=== PATIENT | male | born 1940 | race Caucasian/White ===

== ENCOUNTER 2017-04-07 08:21 | Day surgery (SDC) | payer MEDICARE ==
[2017-04-06 13:34] VITALS: BMI 21.2
[~2017-04-07 08:21] MED LIST: Cyclopentolate 1% Opth Drop 2 ML BOT FS SCH; Fluorouracil 100 MG, Enoxaparin Sodium 25 MG, EPINEPHrine 0.3 MG in Ophthalmic Irrigati... FS SCH; Phenylephrine 2.5% Ophth Soln 5 ML BOT FS SCH
[2017-04-07] MEDS ORDERED: Cyclopentolate 1% Opth Drop 2 ML BOT ONE (08:56)
[2017-04-07] MEDS ORDERED: Phenylephrine 2.5% Ophth Soln 5 ML BOT ONE (08:57)
[2017-04-07] MEDS ORDERED: Midazolam HCl 2 mg/2 ml Vial ONE (10:28)
[2017-04-07] MEDS ORDERED: Diprivan 20 ML ONE (10:28)
[2017-04-07] MEDS ORDERED: Fentanyl 100 MCG/2 ML VIAL ONE (10:28)
[2017-04-07] MEDS ORDERED: Propofol 200 MG/20 ML VIAL ONE (10:39)
--- NOTE | 2017-04-07 11:57 | OP ---
DATE OF PROCEDURE: 04/07/2017 PREOPERATIVE DIAGNOSIS: Rhegmatogenous retinal detachment, right eye. POSTOPERATIVE DIAGNOSIS: Rhegmatogenous retinal detachment, right eye. PROCEDURE: Pars plana vitrectomy and retinal detachment repair, right eye. SURGEON: Hugo Garcia M.D. ANESTHESIA: Local with monitored anesthesia care. COMPLICATIONS: None. PROCEDURE IN DETAIL: The patient was identified in the preoperative holding area. Appropriate info rmed consent for the planned surgical procedure on the right eye had been obtained. The patient was transported to the operative suite where appropriate cardiopulmonary monitoring was established. L ocal anesthesia was obtained using retrobulbar and modified Van Lint lid block using 50/50 mixture o f 4% lidocaine and 0.75% bupivacaine. The patient was prepped and draped in the usual sterile melony r for ophthalmic surgery on the right eye. Lid speculum was placed in the right eye. The 25-gauge trocars were placed in conjunctiva and sclera supratemporally, inferotemporally, and supranasally. Infusion line was placed inferotemporally. Light pipe and vitreous cutter were inserted into the ey e. Core of vitrectomy was performed. Vitreus base was trimmed back 360 degrees using wide field vi lucero system. Tear was noted at 11 o'clock position. Posterior drain retinotomy was created and co mplete air fluid exchange was performed with 10 minutes being allowed for fluid to drain posteriorly . Laser was placed 360 degrees around the vitreous base. A 28% sulfur hexafluoride gas was infused into the eye. Trocars were removed. Supratemporal sclerotomy was sutured closed. Retrobulbar Deniz alog and subconjunctival Ancef were placed. Atropine and antibiotic ointment were placed, and the e ye was patched and shielded. The patient was taken to the postoperative recovery unit in good condi tion having suffered no immediate perioperative complications. The patient was advised to position, right side down, and follow up in the morning with Dr. Garcia.
== END 2017-04-07 12:32 | disposition home or self-care (01) ==
LOC: SDC 08:21
PROVIDERS: ATTEND Ophthalmology Retina Specialist
PROC: 3E0C3GC Introduction of Other Therapeutic Substance into Eye, Percutaneous Approach (ICD-10-PCS; principal; 2017-04-07)
DX: H33.021 Retinal detachment with multiple breaks, right eye (principal); Z87.891 Personal history of nicotine dependence
CPT/HCPCS: 67025; J0171; J1650; J2250; J2704; J3010; J9190

== ENCOUNTER 2017-07-05 09:55 | Day surgery (SDC) | payer MEDICARE ==
[2017-07-05] MEDS ORDERED: CEFAZOLIN/Water 2 GM/20 ML SYRINGE ONE (10:48)
[2017-07-05] MEDS ORDERED: Midazolam HCl 2 mg/2 ml Vial ONE ×2 (10:53→12:10)
[2017-07-05] MEDS ORDERED: Fentanyl 100 MCG/2 ML VIAL ONE ×2 (10:53→12:10)
[2017-07-05 10:58] LABS: #Eosinphils 0.2 thou/uL (0.0-0.7); #Lymphocytes 1.6 thou/uL (1.20-3.40); #Monocytes 0.9 thou/uL (0.11-0.59); #Neutrophils 3.6 thou/uL (1.40-6.50); %Basophils 0.5 % (0.0-1.0); %Eosinophils 2.7 % (0.0-10.0); %Lymphocytes 25.9 % (21.0-51.0); %Monocytes 13.9 % (0.0-10.0); Hemoglobin 11.6 g/dL (14.0-18.0); Mean Corpuscular HGB CONC 32.7 g/dL (32.0-36.0); Mean Corpuscular Hemoglobin 33.5 pg (27.0-31.0); Mean Platelet Volume 7.1 fL (7.4-10.4); Platelet Count 218 thou/uL (130-400); RBC Distribution Width 15.8 % (11.5-14.5); Red Blood Cell (RBC) Count 3.46 mill/uL (4.70-6.10); White Blood Cell (WBC) Count 6.3 thou/uL (4.8-10.8)
[2017-07-05] MEDS ORDERED: Sodium Chloride 0.9% 20 ML ONE (10:59)
[2017-07-05] MEDS ORDERED: Bupivacaine 0.25% HCL 30 ML VIAL ONE ×2 (10:59→16:49)
[2017-07-05] MEDS ORDERED: Protamine Sulfate 50 MG/5 ML VIAL ONE (10:59)
[2017-07-05] MEDS ORDERED: Heparin 10,000 UNITS/1 ML VIAL ONE (10:59)
[2017-07-05] MEDS ORDERED: Lidocaine 2% w/Epinephrine 1:200K 20 ML VIAL ONE (10:59)
[2017-07-05] MEDS ORDERED: Heparin 5,000 UNITS/ML VIAL ONE (10:59)
[2017-07-05 11:30] LABS: Anion Gap 14 mmol/L (10-20); BUN (Urea Nitrogen) 32 mg/dL (8.4-25.7); Calc. Creatinine Clearance 19 mL/min (70-130); Calcium 9.6 mg/dL (7.8-10.44); Carbon Dioxide 29 mmol/L (23-31); Chloride 98 mmol/L (98-107); Estimated GFR-MDRD 18; Glucose 97 mg/dL (83-110); Potassium 4.8 mmol/L (3.5-5.1); Sodium 136 mmol/L (136-145)
[2017-07-05] MEDS ORDERED: Propofol 500 MG/50 ML VIAL ONE (12:10)
[2017-07-05] MEDS ORDERED: Ketamine 50 MG/ML VIAL ONE (12:10)
[2017-07-05] MEDS ORDERED: Bupivacaine HCl 0.5%/Epinephrine 1:200,000/PF 30 ml Vial ONE (14:36)
[2017-07-05] MEDS ORDERED: Heparin 10,000 UNITS/ 10 ML VIAL ONE (15:00)
[2017-07-05] MEDS ORDERED: Lidocaine 1% w/Epinephrine 1:200K 30 ML VIAL ONE (16:49)
--- NOTE | 2017-07-05 19:26 | RAD ---
PORTABLE CHEST: 07/05/17 HISTORY: Postop catheter placement. COMPARISON: 01/07/17 study. Heart size is slightly enlarged. Postop sternotomy change. Internal defibrillator device present. the re is a right sided dural lumen catheter. Catheter tip overlies the superior vena cava. No signs of p neumothorax. No signs of failure. IMPRESSION: Right sided hemosplit catheter with catheter tip overlies the proximal superior vena cava. No signs o f pneumothorax. POS: [facility]
--- NOTE | 2017-07-06 13:32 | OP ---
PROCEDURES: Replacement of right IJ tunneled hemodialysis catheter and revision of right Radha AV f istula. PREOPERATIVE DIAGNOSES: End-stage renal failure with possible catheter infection with perianastomoti c stricture of right Radha AV fistula. POSTOPERATIVE DIAGNOSES: End-stage renal failure with possible catheter infection with perianastomot ic stricture of right Radha AV fistula. HISTORY: Mr. Venegas is a 76-year-old man with a poorly developing right Radha AV fistula. On fis tulogram, the vein appeared good, but the patient has a significant perianastomotic stricture of the vein immediately adjacent to the artery, which the interventional center machine operator did not feel, would be adequately addressed by angioplasty. Therefore, the decision was made to surgically revise this. I n addition, he has had some malaise and chills, and his center machine operator has requested replacement of his tunneled hemodialysis catheter with culture of the tip. PROCEDURE: After informed consent was obtained and appropriate preoperative antibiotics administered , the patient was taken to the operating room where he was placed in supine position and anesthesia w as administered. He was prepped and draped in a standard sterile fashion, and local anesthesia infus ed to the skin and subcutaneous tissues over the right IJ access site. The incision was reopened and dissection carried down to the catheter which was dissected free circumferentially, clamped and divi ded. A wire was placed to the distal portion of the catheter which was then removed and the tip sent for culture. Additional local anesthesia was infused to the skin and subcutaneous tissue over the r ight neck and chest. Lateral to the previous catheter site, an infraclavicular incision was made and a fresh catheter tunneled up to the access site. A dilator and sheath were placed over the wire, an d the dilator and wire removed leaving the sheath in place. The catheter was tunneled through this a nd the sheath split and removed leaving the catheter in place. Both ports easily aspirated and easil y flushed without resistance, and heparin was instilled to the quantity specified on the hub. The ca theter was confirmed by fluoroscopy to be in good position with the tip in the superior vena cava. T he right IJ access site was closed in two layers with Monocryl suture and Dermabond placed. The exit site was snugged up around the catheter with 4-0 Monocryl suture as well and Dermabond placed there. The hub was secured to the skin with nylon sutures and once the Dermabond was dry, a Biopatch and T egaderm dressing were placed. Attention was then turned to the revision of the right Radha AV fistula. The right arm was prepped and draped in standard sterile fashion, and an incision made over the radial artery proximal to the a nastomosis. Dissection was carried out to the vein, which was dissected free proximally to obtain a good length of healthy vein to reach to the artery proximal to the anastomosis. The vein was then li gated and divided at the level of the anastomosis and the vein spatulated and interrogated with cardi ac dilators. No stricture of the remaining vein was identified and easily accepted a 4 mm dilator. This was flushed with heparinized saline and clamped. The radial artery was then dissected free prox imal to the anastomosis and found to be of good quality and caliber. Heparin was administered circum ferentially and allowed to circulate following which the artery was clamped proximally and distally. An anterior arteriotomy was created and extended with [place] scissors and an end-to-side anastomosis created with a 6-0 Prolene suture with excellent technical result. The patient had a strong thrill a nd bruit following creation of the anastomosis and release of inflow. Hemostasis at this site was ve rified and flow established the distal radial artery. The wound was irrigated and a few oozing spots controlled with electrocautery. The subcutaneous tissues were reapproximated with 3-0 Monocryl sutu re and the skin closed with 4-0 subcuticular Monocryl suture. Dermabond dressings were placed and on ce this was dry, an Trevor wrap was placed. Attention was then turned to removal of the old catheter. Local anesthesia was infused to the skin a nd subcutaneous tissues surrounding the cuff. This was dissected free circumferentially and the cath eter removed, and a gauze and Tegaderm dressing placed at the exit site. The patient was then taken to the recovery room in good condition. Estimated blood loss was minimal. There were no complicatio ns. Specimen is tip of right IJ catheter for culture.
== END 2017-07-05 18:30 | disposition home or self-care (01) ==
LOC: SDC 09:55
PROVIDERS: ATTEND Surgery
PROC: 0J2TXYZ Change Other Device in Trunk Subcutaneous Tissue and Fascia, External Approach (ICD-10-PCS; principal; 2017-07-05)
DX: T82.858A Stenosis of other vascular prosthetic devices, implants and grafts, initial encounter (principal); I13.2 Hypertensive heart and chronic kidney disease with heart failure and with stage 5 chronic kidney disease, or end stage renal disease; N18.6 End stage renal disease; I50.20 Unspecified systolic (congestive) heart failure; M10.9 Gout, unspecified; E78.5 Hyperlipidemia, unspecified; I25.10 Atherosclerotic heart disease of native coronary artery without angina pectoris; I48.91 Unspecified atrial fibrillation; Z79.82 Long term (current) use of aspirin; Z79.899 Other long term (current) drug therapy; Z98.890 Other specified postprocedural states; Z99.2 Dependence on renal dialysis
CPT/HCPCS: 36582; 36832; 71045; 80048; 85025; 87071; C1752; C1769; A4216; J0670; J1644; J2250; J2704; J2720; J3010; S0020

== ENCOUNTER → 2019-07-10 | Day surgery (SDC) | payer MEDICARE ==
[2019-07-09 10:00] VITALS: BMI 22.8
[~2019-07-10] MED LIST changes: -Cyclopentolate 1% Opth Drop 2 ML BOT FS SCH; -Fluorouracil 100 MG, Enoxaparin Sodium 25 MG, EPINEPHrine 0.3 MG in Ophthalmic Irrigati... FS SCH; +Heparin (Artline) 1,000 ML ONE; +Iopamidol 370 76% 100 ML VIAL ONE; +Iopamidol 370 76% 50 ML VIAL FS ONE; +Lidocaine 1% (PF) 30 ML VIAL ONE; +Midazolam HCl 2 mg/2 ml Vial ONE; -Phenylephrine 2.5% Ophth Soln 5 ML BOT FS SCH
[2019-07-10 06:37] LABS: Hemoglobin 12.5 g/dL (14.0-18.0); Red Blood Cell (RBC) Count 3.68 mill/uL (4.70-6.10)
[2019-07-10 06:38] LABS: #Basophils 0.1 thou/uL (0.0-0.2); #Eosinphils 0.1 thou/uL (0.0-0.7); #Lymphocytes 1.7 thou/uL (1.20-3.40); #Monocytes 0.8 thou/uL (0.11-0.59); #Neutrophils 4.2 thou/uL (1.40-6.50); %Eosinophils 2.1 % (0.0-10.0); %Lymphocytes 24.1 % (21.0-51.0); %Monocytes 11.9 % (0.0-10.0); %Neutrophils 60.8 % (42.0-75.0); Mean Corpuscular HGB CONC 33.8 g/dL (32.0-36.0); Mean Corpuscular Hemoglobin 33.9 pg (27.0-31.0); Mean Platelet Volume 7.6 fL (7.4-10.4); Platelet Count 193 thou/uL (130-400); RBC Distribution Width 12.5 % (11.5-14.5)
[2019-07-10 06:44] LABS: INR-International Normal Ratio 1.1; PTT 29.3 SEC (22.9-36.1); Prothrombin Time 13.9 SEC (12.0-14.7)
[2019-07-10 06:57] LABS: ALT (SGPT) 18 U/L (8-55); AST (SGOT) 13 U/L (5-34); Albumin 4.3 g/dL (3.4-4.8); Alkaline Phosphatase 94 U/L (40-110); Anion Gap 16 mmol/L (10-20); BUN (Urea Nitrogen) 40 mg/dL (8.4-25.7); Bilirubin, Total 0.8 mg/dL (0.2-1.2); Calc. Creatinine Clearance 12 mL/min (70-130); Calcium 9.3 mg/dL (7.8-10.44); Carbon Dioxide 30 mmol/L (23-31); Chloride 96 mmol/L (98-107); Estimated GFR-MDRD 9; Glucose 104 mg/dL (83-110); Potassium 4.4 mmol/L (3.5-5.1); Protein, Total 7.3 g/dL (5.8-8.1); Sodium 138 mmol/L (136-145)
--- NOTE | 2019-07-10 07:53 | RAD ---
Chest AP view INDICATION: Preoperative examination COMPARISON: Prior examination dated January 07, 2017 and July 05, 2017 FINDINGS: Lungs:Chronic interstitial opacities likely related to underlying fibrosis is stable. No acute airspa ce consolidation is present. Cardiac silhouette:Mild cardiomegaly with AICD is stable. Pulmonary vasculature:Normal Pleural spaces:No pleural effusion or pneumothorax is demonstrated. Upper abdomen:No abnormality seen. Osseous structures: There is stable postsurgical change of a left rotator cuff repair. No acute fract ure or subluxation demonstrated. Additional findings:None. IMPRESSION: No acute cardiopulmonary abnormality.
--- NOTE | 2019-07-11 11:22 | DIS ---
DATE OF ADMISSION: 07/10/2019 DATE OF DISCHARGE: 07/10/2019 He was seen in the outpatient facility to undergo a cardiac catheterization. ADMISSION DIAGNOSES: 1. Include coronary artery disease status post bypass surgery, cardiomyopathy status post AICD implant, multiple shocks after dialysis from the AICD, also hypertension. 2. Chronic systolic heart failure. 3. Hyperlipidemia. DISCHARGE DIAGNOSES: 1. Include coronary artery disease status post bypass surgery, cardiomyopathy status post AICD implant, multiple shocks after dialysis from the AICD, also hypertension. 2. Chronic systolic heart failure. 3. Hyperlipidemia. PROCEDURES PERFORMED: Include cardiac catheterization, left ventriculogram, coronary arteriography, saphenous vein graft evaluation, also left internal mammary artery graft evaluation. DISCHARGE MEDICATIONS: Include: 1. Amiodarone 200 mg once a day. 2. Aspirin 81 mg a day. 3. Atorvastatin 40 mg a day. 4. Furosemide 80 mg on Tuesday, Tuesday, and Fridays. 5. Coreg 12.5 mg b.i.d. 6. Multivitamins daily. 7. Tamsulosin 0.4 mg q.p.m. His followup will be with senior ui web developer about one month. He will see me back in the office in the next 2 to 3 months. He will continue his routine follow up with Dr. Jo. He will continue his routine scheduled dialysis. HOSPITAL COURSE: This is a very pleasant 78-year-old gentleman, who has a history of coronary artery disease, bypass surgery about 15 years ago. He was advised to undergo cardiac catheterization after he received multiple shocks from the AICD to ensure that he was not having ischemia causing AICD shocks. It mainly occurred after his dialysis. He had had no significant shortness of breath or chest pain but due to the ventricular tachycardia and AICD shocks, he was advised to undergo cardiac catheterization to evaluate the graft as well as his havasupai coronary arteries. He was taken to cardiac bobcat driver/labor, where he was prepped and draped, where he underwent the procedure without difficulties or complications. He has a CUETO to the left anterior descending artery, which is patent. There is no evidence of distal left anterior descending artery stenosis. The graft is on the very distal left anterior descending artery. There is some retrograde filling of the left anterior descending artery, which feeds some septal branches. There is a 50% to 60% stenosis in this area proximal to the left internal mammary artery anastomosis. There is a saphenous vein graft to the first obtuse marginal branch, which also was patent. There was no evidence of stenosis in the graft. There was no evidence of stenosis in the obtuse marginal branch distal to the anastomosis. This vessel also feeds retrograde up into the left circumflex, which then fills distally by retrograde filling from the obtuse marginal branch of left circumflex. There is also saphenous vein graft to the distal posterior descending or the right coronary artery. There is no stenosis in this graft and there is no stenosis in the posterior descending artery beyond the anastomotic site. This vessel also fills retrograde into the distal right coronary artery and into the posterolateral branch of the right coronary, and there is no evidence of stenosis in the posterolateral branch. There is what appears to be some mild stenosis just at the bifurcation. However, at the stenosis, the bifurcation of the posterior descending artery and posterolateral branch, there is still good filling of the posterolateral branch from this retrograde filling of the posterior descending artery by the saphenous vein graft. There was also radial artery graft, which is anastomosed off the gutierrez of the saphenous vein graft to the right coronary. This radial graft is anastomosed to a diagonal branch and the radial graft has no evidence of stenosis, and there is no evidence of stenosis in the diagonal branch. Distally to the anastomosis is somewhat small vessel, but no evidence of stenosis is noted. There is also some retrograde filling of this vessel up to the bifurcation of another small diagonal branch, which arises as a bifurcation, but there is no filling up into the left anterior descending artery. The left ventriculogram was performed and showed global hypokinesis. Ejection fraction is estimated approximately at 30% to 40%. He did have some PVCs during the injection, but otherwise appeared to be relatively stable, but there is a global hypokinesis noted. Ejection fraction at best is 30% to 40 %. He tolerated the procedure well without difficulties or complications. If he remains stable, he will be discharged later today and I will see him back in the office in the next couple of months. He will follow up with Dr. Jo and for his dialysis concern, his electrolytes may need to be readjusted during the dialysis or I will check at the end of the procedure to ensure that his potassium is not too low. Otherwise, he will continue his followup with the senior ui web developer and may need some adjustments to the AICD. If he remains stable in the next couple of hours, he will be discharged to home. Job ID: [id number]
== END ==
LOC: CCL 06:01
PROVIDERS: ATTEND Internal Medicine Cardiovascular Disease
PROC: 4A023N7 Measurement of Cardiac Sampling and Pressure, Left Heart, Percutaneous Approach (ICD-10-PCS; principal; 2019-07-10)
PROC: B201YZZ Plain Radiography of Multiple Coronary Arteries using Other Contrast (ICD-10-PCS; 2019-07-10)
PROC: B205YZZ Plain Radiography of Left Heart using Other Contrast (ICD-10-PCS; 2019-07-10)
PROC: B203YZZ Plain Radiography of Multiple Coronary Artery Bypass Grafts using Other Contrast (ICD-10-PCS; 2019-07-10)
DX: I25.10 Atherosclerotic heart disease of native coronary artery without angina pectoris (principal); I13.2 Hypertensive heart and chronic kidney disease with heart failure and with stage 5 chronic kidney disease, or end stage renal disease; I50.22 Chronic systolic (congestive) heart failure; I25.5 Ischemic cardiomyopathy; I48.3 Typical atrial flutter; Z95.1 Presence of aortocoronary bypass graft; E78.2 Mixed hyperlipidemia; N18.6 End stage renal disease; Z99.2 Dependence on renal dialysis; Z79.82 Long term (current) use of aspirin; Z87.891 Personal history of nicotine dependence; Z79.899 Other long term (current) drug therapy
CPT/HCPCS: 36415; 71045; 80053; 85025; 85610; 85730; 93005; 93010; 93459; 99152; 99153; C1769; J1644; J2001; J2250; Q9967

== ENCOUNTER 2019-07-15 09:14 | Inpatient (IN) | payer MEDICARE ==
--- NOTE | 2019-07-15 09:46 | RAD ---
EXAM: Portable chest PROVIDED CLINICAL HISTORY: Defibrillator firing COMPARISON: 07/10/2019 FINDINGS: Cardiac and mediastinal silhouette unchanged in appearance. Left subclavian cardiac pacing device and median sternotomy changes are again seen. Vascular calcification is noted. No focal consolidation, pleural fluid or pneumothorax evident. IMPRESSION: No evidence for an acute cardiopulmonary process.
[2019-07-15 10:02] LABS: Mean Corpuscular HGB CONC 34.4 g/dL (32.0-36.0); Mean Corpuscular Hemoglobin 34.7 pg (27.0-31.0); Platelet Count 184 thou/uL (130-400); RBC Distribution Width 12.3 % (11.5-14.5); Red Blood Cell (RBC) Count 3.46 mill/uL (4.70-6.10); White Blood Cell (WBC) Count 8.4 thou/uL (4.8-10.8)
[2019-07-15 10:24] LABS: Eosinophils 2 % (0-10); Lymphocytes 15 % (21-51); MDiff Complete? YES; Monocytes 6 % (0-10); Neutrophil 67 % (42-75); Platelet Morphology Comment Appears Adequate; Reactive Lymphocytes 8 % (0-10)
[2019-07-15 10:27] LABS: ALT (SGPT) 18 U/L (8-55); AST (SGOT) 14 U/L (5-34); Albumin 4.3 g/dL (3.4-4.8); Alkaline Phosphatase 92 U/L (40-110); Anion Gap 17 mmol/L (10-20); BUN (Urea Nitrogen) 45 mg/dL (8.4-25.7); CK (CPK) 56 U/L (30-200); Calc. Creatinine Clearance 0 mL/min (70-130); Calcium 9.1 mg/dL (7.8-10.44); Carbon Dioxide 27 mmol/L (23-31); Chloride 98 mmol/L (98-107); Estimated GFR-MDRD 10; Globulin 2.6 g/dL (2.4-3.5); Glucose 107 mg/dL (83-110); Potassium 4.3 mmol/L (3.5-5.1); Protein, Total 6.9 g/dL (5.8-8.1); Sodium 138 mmol/L (136-145)
[2019-07-15 10:44] LABS: CKMB 1.5 ng/mL (0-6.6)
[2019-07-15] MEDS ORDERED: Amiodarone 150 MG/3 ML VIAL ONE (14:32)
[2019-07-15] MEDS ORDERED: Amiodarone 450 MG, Admixture Fee 1 EACH in Dextrose 5% in Water 250 ML IVPB SCH (14:45)
[2019-07-15] MEDS ORDERED: Acetaminophen 325 MG TAB PO PRN (15:21)
[2019-07-15 17:14] VITALS: BMI 22.2
[2019-07-15] MEDS: Carvedilol 6.25 MG TAB PO SCH (17:55)
[2019-07-15 18:30] LABS: Troponin I 0.057 ng/mL (< 0.028)
[2019-07-15 21:51] LABS: Anion Gap 16 mmol/L (10-20); BUN (Urea Nitrogen) 52 mg/dL (8.4-25.7); Calc. Creatinine Clearance 11 mL/min (70-130); Carbon Dioxide 27 mmol/L (23-31); Chloride 99 mmol/L (98-107); Estimated GFR-MDRD 9; Glucose 125 mg/dL (83-110); Magnesium 2.6 mg/dL (1.6-2.6); Potassium 3.9 mmol/L (3.5-5.1); Sodium 138 mmol/L (136-145)
[2019-07-15] MEDS: Amiodarone 450 MG in Dextrose 5% in Water 250 ML IVPB SCH (22:28)
[2019-07-15] MEDS ORDERED: Senokot 8.6 MG TAB PO PRN (22:56)
--- NOTE | 2019-07-15 23:17 | HP ---
CHIEF COMPLAINT: Defibrillator discharge. HISTORY OF PRESENT ILLNESS: This patient is a 78-year-old male with a history of an ischemic cardiomyopathy with an ejection fraction around 35% on his most recent echocardiogram. He presented to the emergency department reporting that his defibrillator had discharged. The patient was just here on July 10 for heart catheterization as an outpatient to investigate potential sources of his defibrillator discharging at that time, it was primarily related to post-dialysis episodes. The patient had another episode this morning. He simply got up, got ready for scientology, was sitting in the chair, said he felt slight lightheadedness and then it discharged. He reports that he has otherwise felt well and has only been having some slight symptoms of feeling a bit lightheaded with standing. He denies any other palpitations or chest pains. REVIEW OF SYSTEMS: He has been afebrile, eating and drinking normally, and sleeping well. He continues to make good urine output and has normal bowel habits. All other systems were reviewed. All pertinent positives and negatives noted in the HPI. PAST MEDICAL HISTORY: End-stage renal disease, on hemodialysis, followed by Dr. Jo; coronary artery disease; hypertension; hyperlipidemia; ventricular tachycardia; ischemic cardiomyopathy with most recent echo showing an EF of 35% to 40% in February 2019, and he has grade 2 diastolic dysfunction. PAST SURGICAL HISTORY: History of pacemaker placement, AICD placement, coronary artery bypass x4. 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 FAMILY HISTORY: Notable for a father who had lung cancer. SOCIAL HISTORY: Quit smoking in 2004, when he had his bypass surgery. Continues to have 1-2 very small glasses of wine per day. He is , he is full code, and his would be his surrogate decision maker. MEDICATIONS: 1. Aspirin 81 mg q. day. 2. Lipitor 40 mg q. day. 3. Coreg 12.5 mg b.i.d. 4. Lasix 120 mg q. day. 5. Amiodarone 200 mg Lasix 120. 6. Tamsulosin 0.4 mg p.o. q. day. ALLERGIES: VANCOMYCIN. PHYSICAL EXAMINATION: VITAL SIGNS: Most recent vitals; BP 167/83, pulse 68, respirations 14, O2 saturation 99% on room air. GENERAL APPEARANCE: Age-appropriate male, pleasant, cooperative, in no distress. HEENT: PERRL. No OP lesions. NECK: Supple and symmetric. HEART: Regular rate and rhythm without murmurs. LUNGS: Clear other than some minimal rales at the right lung base. No other wheezes, rales, or rhonchi noted. ABDOMEN: Soft, nontender, and nondistended. Positive bowel sounds. No masses and no organomegaly. EXTREMITIES: No cyanosis, clubbing, or edema. PSYCH: Normal affect and behavior. NEURO: Cognitively intact. Cranial nerves intact. No focal deficits. LABORATORY DATA: White count 8.4, hemoglobin 12.0, platelets 184. Chemistries notable for BUN of 45 and creatinine of 5.81, otherwise normal. Troponin 0.06, consistent with previous readings. Chest x-ray is unremarkable. EKG shows paced rhythm at 72 beats per minute. IMPRESSION AND PLAN: 1. Recurrent ventricular tachycardia with AICD discharges. The patient was recently seen here for heart catheterization to rule out any ischemia as an underlying source that was negative. The patient was to have outpatient followup; however, it discharged again today and he presented to the ER. ER discussed the case Dr. Schuler who recommended that the patient be admitted, started on amiodarone drip, and have Electrophysiology see him while he is here. Currently, the patient appears to feel fine and looks good. We will keep him on the amiodarone drip, telemetry, and place in the hospital for electrophysiology followup. 2. End-stage renal disease, on dialysis. We will consult Dr. Jo, his shift nurse manager. Suspect he is going to get transferred to [facility] and may need to coordinate dialysis there. 3. Hypertension. Continue with his usual home regimen. 4. Hyperlipidemia. Continue with his statin. 5. Indeterminate troponins. These are consistent with the patient's baseline readings and appropriate for his age and renal function, does not represent significant myocardial injury of any type. Job ID: [id number]
[2019-07-16] MEDS ORDERED: Tamsulosin HCl 0.4 MG CAP PO SCH ×2 (09:00→21:00)
[2019-07-16] MEDS: Furosemide 80 MG TAB PO SCH (10:17)
[2019-07-16] MEDS: Carvedilol 6.25 MG TAB PO SCH ×2 (10:20→19:35)
[2019-07-16] MEDS: Amiodarone 450 MG in Dextrose 5% in Water 250 ML IVPB SCH (13:45)
--- NOTE | 2019-07-16 16:58 | PDOC.HOSPP ---
- Subjective Encounter Date: 07/16/19 Subjective: Doing ok. No complaints. - Objective Vital Signs & Weight: Vital Signs (12 hours) Temp Pulse Resp BP BP Pulse Ox 07/16/19 12:10 97.9 F 78 19 162/76 H 98 07/16/19 08:15 97.6 F 72 16 138/94 H 98 07/16/19 08:00 98 Weight Weight 164 lb 4 oz Result Diagrams: 07/15/19 09:40 07/15/19 20:59 Hospitalist ROS - Medication Medications: Active Medications Generic Name Dose Route Start Last Admin Trade Name Freq PRN Reason Stop Dose Admin Carvedilol 12.5 mg 07/15/19 17:00 07/16/19 10:20 Coreg PO 12.5 mg BID-WM ROMAN Administration Furosemide 120 mg 07/16/19 07:30 07/16/19 10:17 Lasix PO Not Given DAILY-AC ROMAN Amiodarone HCl 450 mg/ 259 mls @ 0 mls/hr 07/15/19 15:30 07/16/19 13:45 Dextrose/Water IVPB 259 mls INF ROMAN Administration Protocol Per Protocol - Exam General Appearance: NAD, awake alert Heart: RRR, no murmur, no gallops, no rubs, normal peripheral pulses Respiratory: CTAB, no wheezes, no rales, no ronchi, normal chest expansion, no tachypnea, normal percussion Gastrointestinal: soft, non-tender, non-distended, normal bowel sounds, no palpable masses, no hepatomegaly, no splenomegaly, no bruit Extremities: no cyanosis, no clubbing, no edema Neurological: cranial nerve grossly intact, normal sensation to touch, no weakness, no focal deficits, no new deficit Musculoskeletal: normal tone, normal strength, no muscle wasting Psychiatric: normal affect, normal behavior, A&O x 3 Hosp A/P (1) Defibrillator discharge Code(s): Z45.02 - ENCNTR FOR ADJUST AND MGMT OF AUTOMATIC IMPLNTBL CARD DEFIB Status: Acute (2) ESRD (end stage renal disease) on dialysis Code(s): N18.6 - END STAGE RENAL DISEASE; Z99.2 - DEPENDENCE ON RENAL DIALYSIS Status: Acute (3) Ventricular tachycardia (paroxysmal) Code(s): I47.2 - VENTRICULAR TACHYCARDIA Status: Acute (4) CAD (coronary artery disease) Code(s): I25.10 - ATHSCL HEART DISEASE OF [place] CORONARY ARTERY W/O ANG PCTRS Status: Chronic (5) Ischemic cardiomyopathy Code(s): I25.5 - ISCHEMIC CARDIOMYOPATHY Status: Chronic (6) HLD (hyperlipidemia) Code(s): E78.5 - HYPERLIPIDEMIA, UNSPECIFIED Status: Acute - Plan Dr. Rubi to see today. Continue amio gtt. May need ventricular ablation. Consult Dr. Jo to continue HD. Continue Carvedilol, Lasix. Continue Statin.
--- NOTE | 2019-07-16 17:26 | CON ---
DATE OF CONSULTATION: 07/16/2019 ADDITIONAL REFERRING PHYSICIAN: 1. Ly Monte MD. 2. Trevor Birmingham MD, hospitalist. HISTORY OF PRESENT ILLNESS: I am seeing Mr. Venegas at our [facility] as an Electrophysiology nutrition consultant during his recurrent ventricular tachyarrhythmias. His problems are: 1. Recurrent ventricular tachycardia requiring repeat ATP therapies and some ICD shocks for determination. a. Telemetry reveals a right bundle inferior axis morphology ventricular tachycardia, ventricular rates in the 150s to 160s. 2. History of paroxysmal atrial fibrillation suppressed with amiodarone. 3. Chronic systolic congestive heart failure ischemic cardiomyopathy. a. Reduced LVEF of 20% to 25% on prior echo in January 2016 and left heart catheterization from 07/10/2019 demonstrates patent CUETO to LAD, SVG to distal posterior radial G graft to the mid first diagonal artery, SVG to mid first OM and 100% ewiiaapaayp occluded disease. 4. History of dual-chamber ICD implant status post Bi-V ICD upgrade in June 2016. 5. History of chronic renal insufficiency, now on hemodialysis followed by Dr. Jo. 6. History of hypertension and hyperlipidemia. ALLERGIES: VANCOMYCIN. MEDICATIONS: At home included; 1. Tamsulosin. 2. Aspirin. 3. Multivitamin. 4. Furosemide. 5. Amiodarone 200 mg a day. 6. Carvedilol 12.5 mg twice a day. 7. Lipitor. SUBJECTIVE: Mr. Venegas is here after an ICD shock. He was felt to have episodes primary after hemodialysis, possibly related to electrolyte abnormalities and has an episode happened on Tuesday, while he was getting out of the episcopal, sitting in the chair without any further provocation, had slight lightheadedness and eventually deferred discharge. He felt fine after that. Denies angina-like discomfort. No stroke-like symptoms. No neurological deficits. No fever, chills, or cough. Rest of the 12-point review of system otherwise unremarkable. PAST MEDICAL HISTORY: As above. Also 2D echo available from our hospital records reveals LVEF of 10% to 15% on December 01, 2016, moderate MR, moderate to severe tricuspid regurgitation seen. The patient had similar episodes, first of which he was admitted by Dr. Monte for further cardiac evaluation and he underwent a left heart catheterization and a stable bypass graft status is noted. PAST SURGICAL HISTORY: Significant for pacemaker/ICD placement upgrade prior to CABG x4 vessels. 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 FAMILY HISTORY: Significant for father having lung cancer. SOCIAL HISTORY: The patient denies smoking, quit in 2004 after his bypass surgery. He drinks 1 to 2 glasses of wine a day. He is and his is his surrogate decision maker. OBJECTIVE DATA: VITAL SIGNS: Blood pressure 139/94, heart rate 72, respiratory rate 16, and temperature 97.6 degrees Fahrenheit. GENERAL: Alert and oriented man, in no apparent distress. NECK: Supple. Jugular veins not distended. CHEST: Coarse without crackles. HEART: Sounds are regular rate and rhythm. No murmur or gallop. ABDOMEN: Benign. Bowel sounds positive. EXTREMITIES: Lower extremities without edema, clubbing, or cyanosis. Pulses are adequate. NEUROLOGIC: The patient nonfocal. MUSCULOSKELETAL: Without joint swelling or deformity. SKIN: Without rash. Left precordial ICD insertion site is insertion site is well healed. DATABASE: EKG reveals atrial ventricular paced rhythm. Interrogation of his ICD with a [employer]onic Bi-V ICD adequate function and battery voltage. The lower year longevity is noted. These parameters are adequate, recurrent ventricular tachycardia episodes seen for last month duration with increasing frequency. LABORATORY DATA: White cell count is 8.4, hemoglobin 12.0, and platelet count is 184. Sodium 138, potassium 3.9, BUN is 52, and creatinine 5.91. Troponin I 0.066, 0.06, and 0.57 consecutively. Chest x-ray from 07/15/2019 shows no evidence of acute cardiopulmonary process. ASSESSMENT AND PLAN: Mr. Venegas is a pleasant 78-year-old man with history of supraventricular and atrial arrhythmias, ischemic cardiomyopathy with most recent echo suggestive of severe reduced left ventricular ejection fraction, who also has an adequate function of biventricular implantable cardioverter-defibrillator in place. He had been noted to have increasing frequency of ventricular tachycardia episodes as outpatient first in our office and also to be somewhat related to his hemodialysis sessions. He underwent an ischemic re-evaluation by Dr. Monte. After this, demonstrating stable coronary artery bypass status. Despite the fact that he is on chronic amiodarone suppressive therapy for atrial fibrillation, he had continued ventricular tachycardia episodes. Now, he was readmitted and IV amiodarone was reloaded. Currently seems to be stabilizing, also had a short recurrence yesterday on telemetry, eventually terminated. PLAN: My plan at this point: 1. Clearly this gentleman has increasing frequency of ventricular arrhythmias. At this point, not clearly related just only to electrolyte abnormalities. On the other hand, no other obvious reversible cause noted either. He is already on chronic suppressive therapy with standard dose of amiodarone at 200 mg a day. 2. For now, I agree with initiating IV amiodarone reloading possibly increasing his amiodarone dose as a short-term option as well. On the other hand, long-term potential side effects are increased with the increased dosages and we discussed this risk as well. We also did discuss the option for outpatient radiofrequency ablation therapy. We will make arrangements for that to occur as an outpatient. In the meantime, continue IV amiodarone and transition to p.o. amiodarone with discharge home on 200 mg three times a day for a week, then 200 mg twice a day for maintenance spontaneous ablation. Risks and benefits discussed of this approach, who understands. We will continue to monitor him. Thank you again for allowing me to participate in the care of this patient. Job ID: [id number]
[2019-07-16] MEDS: Aspirin 81 mg Enteric Coated Tablet PO SCH (19:18)
[2019-07-16] MEDS: Atorvastatin Calcium 40 MG TAB PO SCH (19:18)
[2019-07-16 21:41] LABS: #Basophils 0.1 thou/uL (0.0-0.2); #Eosinphils 0.2 thou/uL (0.0-0.7); #Lymphocytes 1.5 thou/uL (1.20-3.40); #Monocytes 0.9 thou/uL (0.11-0.59); %Basophils 0.7 % (0.0-1.0); %Eosinophils 3.2 % (0.0-10.0); %Lymphocytes 19.8 % (21.0-51.0); %Monocytes 11.1 % (0.0-10.0); %Neutrophils 65.1 % (42.0-75.0); Hemoglobin 11.8 g/dL (14.0-18.0); Mean Corpuscular HGB CONC 34.5 g/dL (32.0-36.0); Mean Corpuscular Hemoglobin 34.8 pg (27.0-31.0); Platelet Count 186 thou/uL (130-400); RBC Distribution Width 12.3 % (11.5-14.5); White Blood Cell (WBC) Count 7.7 thou/uL (4.8-10.8)
[2019-07-16 21:52] LABS: Anion Gap 14 mmol/L (10-20); BUN (Urea Nitrogen) 24 mg/dL (8.4-25.7); Calc. Creatinine Clearance 18 mL/min (70-130); Calcium 9.1 mg/dL (7.8-10.44); Carbon Dioxide 27 mmol/L (23-31); Chloride 100 mmol/L (98-107); Estimated GFR-MDRD 16; Glucose 135 mg/dL (83-110); Magnesium 2.1 mg/dL (1.6-2.6); Potassium 3.9 mmol/L (3.5-5.1); Sodium 137 mmol/L (136-145)
[2019-07-16] MEDS: Amiodarone 200 MG TAB PO SCH (22:43)
[2019-07-17] MEDS ORDERED: Potassium Chloride 20 MEQ TAB PO SCH (01:45)
[2019-07-17] MEDS ORDERED: Potassium Chloride 20 MEQ TAB ONE (02:03)
[2019-07-17] MEDS: Amiodarone 200 MG TAB PO SCH ×3 (05:46→15:12)
[2019-07-17 07:01] LABS: CKMB 1.1 ng/mL (0-6.6); Troponin I 0.054 ng/mL (< 0.028)
[2019-07-17] MEDS: Atorvastatin Calcium 40 MG TAB PO SCH (08:35)
[2019-07-17] MEDS: Furosemide 80 MG TAB PO SCH (08:35)
[2019-07-17] MEDS: Carvedilol 6.25 MG TAB PO SCH (08:36)
[2019-07-17] MEDS: Aspirin 81 mg Enteric Coated Tablet PO SCH (08:36)
--- NOTE | 2019-07-17 09:28 | PRG ---
DATE OF SERVICE: 07/17/2019 SUBJECTIVE: Mr. Venegas has experienced repeated VT episodes overnight. An episode at 5:00 p.m. yesterday was prolonged due to being lower than the ICDs programmed VT detection zone. Eventually, it was self-terminated. The ICD was reprogrammed for lower detection zones, but reviewed episodes were still seen despite continued IV amiodarone. The episodes all monomorphic slow VTs in 140-150 beats per minute range. Some of the episodes this morning are ICD shock occurred again at 9:00 p.m. last night. The patient denies angina. No CHF like symptoms. No fever, chills, cough. He underwent hemodialysis without event last night. OBJECTIVE DATA: VITAL SIGNS: Blood pressure 135/65, heart rate 70, respirations 16, and temperature 98.1 degrees Fahrenheit. GENERAL: Alert and oriented man, in no apparent distress. NECK: Supple. Jugular veins not distended. CHEST: Coarse without crackles. HEART: Sounds are regular to rate and rhythm. No murmur or gallop. ICD site is without reaction. ABDOMEN: Benign. Bowel sounds positive. EXTREMITIES: Lower extremity without edema, clubbing, or cyanosis. DATABASE AND LABORATORY DATA: Troponin levels 0.057, 0.054, and 0.057 consecutively. Potassium was 3.9, sodium 137, magnesium 2.1, BUN is 24, and creatinine 3.64. Hemoglobin 11.8 last night. White count 7.7, platelet count is 186. Telemetry strips again reveals atrial-ventricular paced rhythm with episodic wide-complex ventricular tachycardia with rates about 150 beats per minute with intermittent successful pace termination. Again, one accelerated VT with subsequent ICD shock is noted. ASSESSMENT AND PLAN: Mr. Venegas is a 78-year-old gentleman with history of congestive heart failure, ischemic cardiomyopathy, prior bypass with recent coronary artery angiogram revealing patent bypass graft and severely reduced left ventricular ejection fraction in the past, somewhat improving per patient's report to 35% more recently. He also has end-stage renal disease on hemodialysis. He has incremental episodes of ventricular tachycardia spells well detected and mostly ATP terminated by device, but more recently occasional ICD shocks were necessary. This prompted his current admission again, which initiated amiodarone reloading despite he currently has recurrent ventricular tachycardia episodes. Electrolytes are in good range. I think it would be reasonable to consider ventricular tachycardia ablation at this stage. I explained the patient the procedure. He understands and willing to proceed. We will schedule him transfer to [facility]. I discussed the case with Dr. Joseph Purvis, skip loader in [facility] who is arranging transfer. Thank you again for allowing me to participate in the care of this patient. Job ID: [id number]
[2019-07-17 15:10] VITALS: BP 145/65; TEMP 98.1
== END 2019-07-17 15:55 | disposition short-term general hospital (02) | DRG 308 ==
LOC: ERS 09:14 → 2NO 15:04
PROVIDERS: ADMIT Internal Medicine; ATTEND Internal Medicine
DX: I47.2 Ventricular tachycardia (principal); N18.6 End stage renal disease; I13.2 Hypertensive heart and chronic kidney disease with heart failure and with stage 5 chronic kidney disease, or end stage renal disease; I50.22 Chronic systolic (congestive) heart failure; I25.10 Atherosclerotic heart disease of native coronary artery without angina pectoris; E78.00 Pure hypercholesterolemia, unspecified; I12.9 Hypertensive chronic kidney disease with stage 1 through stage 4 chronic kidney disease, or unspecified chronic kidney disease; E78.5 Hyperlipidemia, unspecified; I25.5 Ischemic cardiomyopathy; I48.0 Paroxysmal atrial fibrillation; Z95.0 Presence of cardiac pacemaker; Z95.1 Presence of aortocoronary bypass graft; Z88.1 Allergy status to other antibiotic agents; Z79.01 Long term (current) use of anticoagulants
CPT/HCPCS: 36415; 71045; 80048; 80053; 82550; 82553; 83735; 84484; 85025; 93005; 93010; 94660; 96365; 96366; J0282; J7070

== ENCOUNTER 2019-07-31 10:43 | Observation (INO) | payer MEDICARE ==
[2019-07-31 11:36] LABS: #Eosinphils 0.2 thou/uL (0.0-0.7); #Lymphocytes 1.4 thou/uL (1.20-3.40); %Basophils 0.3 % (0.0-1.0); %Eosinophils 2.6 % (0.0-10.0); %Lymphocytes 15.9 % (21.0-51.0); %Neutrophils 69.1 % (42.0-75.0); Hemoglobin 8.2 g/dL (14.0-18.0); Mean Corpuscular HGB CONC 33.8 g/dL (32.0-36.0); Mean Corpuscular Hemoglobin 34.7 pg (27.0-31.0); Mean Platelet Volume 7.7 fL (7.4-10.4); Platelet Count 213 thou/uL (130-400); RBC Distribution Width 12.8 % (11.5-14.5); Red Blood Cell (RBC) Count 2.36 mill/uL (4.70-6.10); White Blood Cell (WBC) Count 8.6 thou/uL (4.8-10.8)
--- NOTE | 2019-07-31 11:42 | RAD ---
EXAM: Single view of the chest HISTORY: Shortness of breath and dyspnea COMPARISON: 07/15/2019 FINDINGS: Single view of the chest shows an enlarged but stable cardiomediastinal silhouette. The pa tient is status post sternotomy. The pacemaker is unchanged in position. Increased interstitial markings are present. There is no evidence of consolidation, mass, or pleural effusion. The bones ar e unremarkable. IMPRESSION: No evidence of acute cardiopulmonary disease
[2019-07-31 12:02] LABS: ALT (SGPT) 26 U/L (8-55); AST (SGOT) 53 U/L (5-34); Albumin 3.5 g/dL (3.4-4.8); Alkaline Phosphatase 87 U/L (40-110); Anion Gap 17 mmol/L (10-20); BUN (Urea Nitrogen) 39 mg/dL (8.4-25.7); Bilirubin, Total 0.9 mg/dL (0.2-1.2); Calc. Creatinine Clearance 0 mL/min (70-130); Calcium 8.9 mg/dL (7.8-10.44); Carbon Dioxide 26 mmol/L (23-31); Chloride 99 mmol/L (98-107); Estimated GFR-MDRD 13; Glucose 120 mg/dL (83-110); Potassium 3.9 mmol/L (3.5-5.1); Protein, Total 6.5 g/dL (5.8-8.1); Sodium 138 mmol/L (136-145)
[2019-07-31] MEDS ORDERED: Aspirin Chewable 81 MG TAB ONE (12:22)
[2019-07-31 12:30] LABS: CKMB 1.6 ng/mL (0-6.6)
[2019-07-31 15:10] LABS: Troponin I 2.946 ng/mL (< 0.028)
[2019-07-31] MEDS ORDERED: Ondansetron ODT 4 MG TAB PO PRN (15:17)
[2019-07-31] MEDS ORDERED: Senokot S 8.6-50 MG TAB PO PRN (15:17)
[2019-07-31] MEDS ORDERED: Acetaminophen 325 MG TAB PO PRN (15:17)
[2019-07-31] MEDS ORDERED: Ondansetron PF 4 MG/2 ML Vial IVP PRN (15:17)
[2019-07-31] MEDS ORDERED: Guaifenesin DM 100-10/5 ML UDCUP PO PRN (15:17)
[2019-07-31] MEDS ORDERED: Acetaminophen 650 MG Suppository PR PRN (15:17)
--- NOTE | 2019-07-31 15:30 | HP ---
PRIMARY CARE PHYSICIAN: Dr. Fletcher. CHIEF COMPLAINT: Presyncopal episode and weakness. HISTORY OF PRESENT ILLNESS: This is a 78-year-old white male with a history of ischemic cardiomyopathy and ventricular arrhythmias, recently admitted here and then transferred to [facility] for ventricular ablation x2. He was discharged and was supposed to be on Eliquis and unknown blood pressure medication and I believe Protonix as well, but has not picked them up yet. He was discharged last Tuesday after his second ablation. This morning, the patient was sitting down, eating breakfast. He then became lightheaded and dizzy. He went and checked his blood pressure. His blood pressure was normal in the 150s/70s. However, he got more weak and lightheaded, he sat down at the breakfast table and eventually he felt like he was going to pass out, though he never did pass out, was unable to stand back up because he was so weak, and so his called an ambulance and they brought him into the emergency room here. Here in the ER, his symptoms slowly resolved. Now, he is feeling back to normal. He denies any chest pain, did have some shortness of breath with the near syncopal episode. In the ER, the patient's vital signs were normal; however, his troponin was elevated at 2.7. It has never been elevated like that before. Dr. Schuler was consulted for Dr. Monte and the patient is being put in observation in the hospital. REVIEW OF SYSTEMS: CONSTITUTIONAL: No fevers. No chills. EYES: No double vision or blurred vision. ENT: He has some baseline congestion in the morning and runny nose from his CPAP. No sore throat. CARDIOVASCULAR: No chest pain. No palpitations or racing heart. PULMONARY: He has a little bit of cough in the mornings from using his CPAP that clears quickly. No wheezing. No active shortness of breath right now. GASTROINTESTINAL: No abdominal pain. No nausea or vomiting. No diarrhea or constipation. He has not noticed any melena or hematochezia. GENITOURINARY: He produces just a little bit of urine. He did have some dysuria right after they took out the catheter from his ablation, but he has been urinating normally since then. MUSCULOSKELETAL: No new muscle aches or joint pain. Just some chronic arthritis pains. SKIN: No rashes or other lesions that he has noted. NEUROLOGIC: He has some generalized weakness but no focal weakness, numbness, or tingling. PAST MEDICAL HISTORY: 1. Coronary artery disease. 2. Ischemic cardiomyopathy with mixed type congestive heart failure. Most recent EF was 35% to 40% in February 2019 with grade 2 diastolic dysfunction. 3. End-stage renal disease, on hemodialysis. 4. Hypertension. 5. Hyperlipidemia. 6. Ventricular tachycardia. 7. Obstructive sleep apnea, on CPAP at night. PAST SURGICAL HISTORY: 1. Pacemaker placement. 2. AICD placement. 3. Coronary artery bypass grafting x4. 4. Cardiac ablation for AV jacqueline reentry tachycardia and atrial flutter. 5. Ventricular ablation x2 for ventricular tachycardias. 6. Bilateral hernia repairs. 7. Right knee surgery. 8. Left shoulder surgery. 9. Cataract removals. 10. Parotid tumor resection. SOCIAL HISTORY: The patient quit smoking in 2004 when he had his bypass surgery. He continues to have 1 to 2 very small glasses of wine per day. No illicit drugs. He is . He reports that he is a full code and his would be his medical decision maker, her name is Xiomara Venegas. FAMILY HISTORY: Father had lung cancer. ALLERGIES: VANCOMYCIN. CURRENT MEDICATIONS: 1. Aspirin 81 mg daily. 2. Lipitor 40 mg daily. 3. Coreg 12.5 mg twice a day. 4. Furosemide 120 mg daily, this is to be taken on all non-hemodialysis days. 5. Amiodarone 200 mg daily. 6. Tamsulosin 0.4 mg daily. PHYSICAL EXAMINATION: VITAL SIGNS: Blood pressure 145/81, pulse 81, respirations 18, temperature 98.1, O2 saturation 98% on room air. GENERAL: This is a well-developed, well-nourished, white male, in no acute distress. HEENT: Pupils are equal, round, and reactive to light. Oropharynx is clear without lesions, erythema, or exudate. NECK: Supple. No lymphadenopathy. No thyroid nodules or enlargement. No JVD. HEART: Regular rate and rhythm. No murmurs, rubs, or gallops. LUNGS: Clear to auscultation bilaterally. No wheezes, crackles, or rhonchi. ABDOMEN: Soft, nontender to palpation. A little bit distended, but not tense. No hepatosplenomegaly. No organomegaly. Normoactive bowel sounds. EXTREMITIES: No clubbing, cyanosis, or edema. SKIN: No rashes or other lesions noted. NEUROLOGIC: The patient has intact strength and sensation in all extremities. No facial droop. LABORATORY DATA: White blood cell count 8.6; hemoglobin 8.2, down from 11.8 15 days ago; hematocrit 24.2; platelet count 213. Complete metabolic panel was notable for BUN of 39, creatinine of 4.57, glucose of 120, and AST of 53, the rest is normal. Troponin is elevated at 2.711, it has never been above 0.1 in the past. CK-MB is normal. Brain natriuretic peptide is 2819, which is fairly typical for him, it is actually a lot lower than the last couple of times we checked it. Chest x-ray; I did review the chest x-ray done in the emergency room along with the radiologist's report. There are some increased interstitial markings, these appear to be chronic. No acute cardiopulmonary process visualized. EKG does show a biventricular paced rhythm. ASSESSMENT: 1. Presyncopal episode. The patient reports normal blood pressures and vital signs during the episode. Uncertain etiology at this point. He does have an elevated troponin. I am uncertain if this is actually related to his previous ablations. It maybe slowly trending down, but not clearing yet because of his end-stage renal disease. It may also be related to an acute cardiac process. The ER has consulted Dr. Schuler and he will evaluate the patient and determine if he needs any further cardiac workup done. We will check orthostatics on the patient and have him ambulate with assistance in the hospital. 2. Acute drop in chronic anemia. The patient does have anemia of chronic kidney disease. However, his blood counts were significantly higher 2 weeks ago. He was reportedly on some sort of blood thinner, likely Eliquis after taking him off the heparin drip over at the [facility] when he was getting his ablations done and he was supposed to be on Eliquis when he went home. However, he has not picked up the medication yet. It is possible that he had some blood loss during his hospitalization either from the catheterizations or possibly from a gastrointestinal source while he was on blood thinners. We will go ahead and check a Hemoccult of his stools and we will recheck a hemoglobin in the morning to see if he is dropping any further. It is possible that if he has had some subacute blood loss that might have made it susceptible to this presyncopal episode. 3. End-stage renal disease, on hemodialysis. the patient is here. 4. Systolic and diastolic congestive heart failure, not currently in exacerbation. We will put the patient on a renal diet with fluid restriction. 5. Hyperlipidemia. Resume the patient's statin. 6. Hypertension. We will resume the patient's home blood pressure medications. 7. Obstructive sleep apnea. We will have the patient bring his CPAP up to use at night. 8. Gastrointestinal prophylaxis. I will put the patient on Protonix twice a day for now until we rule out GI bleeding. 9. Deep venous thrombosis prophylaxis, put the patient on sequential compression devices while he is in bed and encourage ambulation. CODE STATUS: I did discuss this with the patient. He is a full code. Should he be incapacitated, his would be his medical decision maker, her name is Xiomarablanca Venegas. Job ID: [id number]
--- NOTE | 2019-07-31 15:45 | CON ---
DATE OF CONSULTATION: 07/31/2019 CONSULTING PHYSICIAN: Joseph Poole MD. SINGLE WIRE SAW OPERATOR CONSULTED: Dr. Schuler PRIMARY SINGLE WIRE SAW OPERATOR: Dr. Monte HISTORY OF PRESENT ILLNESS: Mr. Venegas is a pleasant 78-year-old male with history of CHFrEF with biventricular pacing, CAD status post 4-vessel CABG in 2004, chronic renal insufficiency on hemodialysis who presented to the ER for onset of weakness and short of breath this morning. We were consulted due elevated troponins. Of significance, Mr. Venegas was recently discharged from [facility] two days ago where he underwent two cardiac catheter ablations, the most recent one 4 days prior, on Tuesday. Prior to his transfer to [facility] he was seen at [facility] for recurrent ventricular tachyarrhythmias in which he was started on amiodarone. He underwent a cardiac cath with Dr. Monte on which showed complete patency of his venous grafts with 100% occlusion of the [place] arteries. In the ER his labs were pertinent for elevated troponin of 2.711 with normal CKMB of 1.6. This troponin has been more elevated than prior ones. During his episode the patient denied chest pain or feeling his ICD emitting any shocks. Denies weight gain but has noticed edema in his feet for the past several weeks. ALLERGIES: VANCOMYCIN. MEDICATIONS AT HOME: 1. Coreg 12.5 mg p.o. b.i.d. 2. Amiodarone 200 mg p.o. daily. 3. Lasix 120 mg p.o. daily. 4. Aspirin 81 mg p.o. daily. 5. Lipitor 40 mg p.o. daily. 6. Tamsulosin 0.4mg po qhs PAST MEDICAL HISTORY: 1. History of heart failure with reduced ejection fraction with biventricular pacemaker. 2. Hypertension. 3. Hyperlipidemia. 4. Anemia of chronic disease. 5. ESRD on hemodialysis. 6. Coronary artery disease status post 4-vessel CABG SURGICAL HISTORY: 1. Right arm AV fistula. 2. Cardiac ablation x2. 3. Sinus surgery. 4. Four-vessel CABG in 1999. 5. Hernia repair. 6. Orthopedic repair of right knee and left shoulder. 7. Cataracts. 8. Pacemaker/ICD placement upgrade prior to the 4-vessel CABG. 9. 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 10. Parotid tumor resection. FAMILY HISTORY: Significant for lung cancer in father. No history of colon cancer. SOCIAL HISTORY: Previous smoker, quit in 2004 after bypass surgery. OBJECTIVE: VITAL SIGNS: Blood pressure 151/70, pulse 70, respirations 28, temperature 98.1, and O2 saturation 97% on room air. GENERAL: Alert and oriented man, in no apparent distress. NECK: Supple. JVD present. CHEST: Clear to auscultation in breathing. Presence of well-healed scar from CABG. HEART: Regular rate and rhythm with no murmur or gallops. ABDOMEN: Soft, mild distention, but nontender. No fluid accumulation or fluid wave. EXTREMITIES: 1+ pitting edema in ankles. No cyanosis. Adequately present pedal pulses bilaterally. NEUROLOGIC: Cranial nerves 2 through 12 grossly intact. MUSCULOSKELETAL: Good range of motion in all 4 extremities. SKIN: No rashes. DIAGNOSTIC STUDIES: EKG shows a dual paced paced rhythm, no ST elevations. LABORATORY DATA: WBC 8.6, hemoglobin 8.2, hematocrit 24.2, MCV 103, MCH 34.7, neutrophils 69.1%, and lymphocytes 15.9%. Chemistry: Sodium 138, potassium 3.9, chloride 99, carbon dioxide 26, anion gap 17, BUN 39, creatinine 4.57, GFR 13, glucose 120, and calcium 8.9. Total bilirubin 0.9, AST 53, ALT 26, and ALP 87. BNP is 2819, CK-MB 1.6, and troponin 2.711. Chest x-ray shows stable cardiomegaly with some increased interstitial markings. ASSESSMENT AND PLAN: 1. Elevated troponin: Troponin of 2.71 but CK-MB normal at 1.6. Likely troponin leak from recent cardiac ablation especially in light of CK-MB within normal range. Will check CK-MB and trend Patient remains asymptomatic. Admit for tele monitoring. We will obtain TTE. Dr. Monte will resume care tomorrow. 2. History of ventricular tachyarrhythmias status post ablation x2: Continue amiodarone 200 mg daily. Tele monitoring. Will request records from [facility] 3. Heart failure with reduced ejection fraction with presence of biventricular pacemaker: BNP is elevated, but around baseline on prior review of the previous values. The patient is euvolemic. Continue hemodialysis and Lasix p.r.n. on non- hemodialysis days. 4. End-stage renal disease, on hemodialysis. Dr. Jo from Nephrology consulted. Continue with scheduled HD. 5. Hypertension: Continue home medications, managed by primary team 6. Hyperlipidemia: Continue home medications, managed by primary team Job ID: [id number] [id number]
[2019-07-31 15:53] VITALS: BMI 22.6
--- NOTE | 2019-07-31 17:01 | CON ---
DATE OF CONSULTATION: 07/31/2019 HISTORY OF PRESENT ILLNESS: Mr. Venegas is a very pleasant 78-year-old gentleman, who is a patient of Dr. Jesús Monte. He has a history of CAD, status post bypass surgery. He recently underwent VT ablation in [place] on Tuesday. This is third ablation. He recently presented with shortness of breath. His shortness of breath is acute in onset. No midline exacerbating or precipitating factors present. No chest pain or pressure noted. He was seen and evaluated in the emergency room. Given an elevated troponin, he was subsequently admitted. He recently underwent coronary angiography [address] Jesús Monte and was found to have patent grafts. PAST MEDICAL HISTORY: 1. CAD, status post bypass surgery. 2. Recent VT ablation. 3. End-stage renal disease. 4. Hypertension. 5. Hyperlipidemia. 6. Obstructive sleep apnea. PAST SURGICAL HISTORY: ICD placement and as above. REVIEW OF SYSTEMS: A 10-point review of systems is reviewed as above, otherwise negative. PHYSICAL EXAMINATION: GENERAL: Patient is a pleasant gentlemen, who is in no acute distress. The patient appears their stated age. VITAL SIGNS: Blood pressure 155/68, pulse 65, temperature 97.3. NEUROLOGIC: The patient is alert and oriented x3 with no focal neurologic deficits. HEENT: Sclerae without icterus. Mouth has moist mucous membranes with normal pallor. NECK: No JVD. Carotid upstroke brisk. No bruits bilaterally. LUNGS: Clear to auscultation with unlabored respirations. BACK: No scoliosis or kyphosis. CARDIAC: Regular rate and rhythm with normal S1 and S2. No S3 or S4 noted. No significant rubs, murmurs, thrills, or gallops noted throughout the precordium. PMI is not displaced. There is no parasternal heave. ABDOMEN: Soft, nontender, nondistended. No peritoneal signs present. No hepatosplenomegaly. No abnormal striae. EXTREMITIES: 2+ femoral and 2+ dorsalis pedis pulses. No cyanosis, clubbing, or edema. SKIN: No gross abnormalities. PERTINENT LABORATORY DATA: Hemoglobin 8.2. Creatinine 4.57. Troponin 2.7. BNP of 2800, CK-MB of 1.6. IMPRESSION: 1. Shortness of breath. 2. Anemia. 3. Elevated troponin. RECOMMENDATIONS: Mr. Venegas' elevated troponin is secondary to recent VT ablation. He underwent coronary angiography and was found to have patent grafts. He is currently stable. We would recommend echo with Doppler to assess LVEF in addition to assess for pericardial effusion, although less likely given previous bypass. We will trend CK-MB and not troponin. We would also monitor his hemoglobin closely. I am unsure what his hemoglobin trends were at [facility]. Further recommendations per Dr. Jesús Monte in a.m. Job ID: [id number]
[2019-07-31 17:21] LABS: CKMB 1.7 ng/mL (0-6.6)
[2019-07-31 18:05] LABS: Critical Call Chem Troponin I RESULT DECREASING
[2019-07-31] MEDS: Carvedilol 25 MG TAB PO SCH (20:38)
[2019-07-31] MEDS: Amiodarone 200 MG TAB PO SCH (20:38)
[2019-07-31] MEDS: Aspirin Chewable 81 MG TAB PO SCH (20:38)
[2019-07-31] MEDS: Tamsulosin HCl 0.4 MG CAP PO SCH (20:40)
[2019-08-01 04:43] LABS: #Eosinphils 0.3 thou/uL (0.0-0.7); #Lymphocytes 1.7 thou/uL (1.20-3.40); #Monocytes 0.9 thou/uL (0.11-0.59); #Neutrophils 4.5 thou/uL (1.40-6.50); %Basophils 0.6 % (0.0-1.0); %Lymphocytes 23.2 % (21.0-51.0); %Monocytes 11.6 % (0.0-10.0); %Neutrophils 60.6 % (42.0-75.0); Hemoglobin 7.3 g/dL (14.0-18.0); Mean Corpuscular HGB CONC 33.9 g/dL (32.0-36.0); Mean Platelet Volume 7.9 fL (7.4-10.4); Platelet Count 176 thou/uL (130-400); RBC Distribution Width 12.7 % (11.5-14.5); Red Blood Cell (RBC) Count 2.08 mill/uL (4.70-6.10); White Blood Cell (WBC) Count 7.4 thou/uL (4.8-10.8)
[2019-08-01 05:07] LABS: Anion Gap 15 mmol/L (10-20); BUN (Urea Nitrogen) 46 mg/dL (8.4-25.7); Calc. Creatinine Clearance 13 mL/min (70-130); Calcium 8.7 mg/dL (7.8-10.44); Carbon Dioxide 27 mmol/L (23-31); Chloride 102 mmol/L (98-107); Estimated GFR-MDRD 11; Glucose 94 mg/dL (83-110); Sodium 140 mmol/L (136-145)
[2019-08-01] MEDS ORDERED: Heparin 10,000 UNITS/ 10 ML VIAL ONE (08:29)
[2019-08-01] MEDS ORDERED: Furosemide 40 MG TAB PO SCH (09:00)
--- NOTE | 2019-08-01 09:14 | PDOC.CPN ---
- Subjective Date: 08/01/19 Time: 08:30 Interval history: The pt seen and examined. No overnight events. No cardiac complaints. He already walked to bathroom himself without any dizziness. - Objective Allergies/Adverse Reactions: Allergies Allergy/AdvReac Type Severity Reaction Status Date / Time vancomycin Allergy Verified 07/15/19 17:11 Visit Medications: Current Medications Acetaminophen (Tylenol) 650 mg PO Q4H PRN PRN Reason: Headache/Fever/Mild Pain (1-3) Acetaminophen (Tylenol) 650 mg NM Q4H PRN PRN Reason: Headache/Fever/Mild Pain (1-3) Amiodarone HCl (Cordarone) 200 mg PO HS [facility] Last Admin: 07/31/19 20:38 Dose: 200 mg Aspirin (Aspirin Chewable) 81 mg PO HS [facility] Last Admin: 07/31/19 20:38 Dose: 81 mg Atorvastatin Calcium (Lipitor) 40 mg PO DAILY [facility] Carvedilol (Coreg) 12.5 mg PO BID [facility] Last Admin: 07/31/19 20:38 Dose: 12.5 mg Furosemide (Lasix) 80 mg PO DAILY-AC [facility] Guaifenesin/Dextromethorphan (Robitussin Dm) 15 ml PO Q4H PRN PRN Reason: Cough Ondansetron HCl (Zofran Odt) 4 mg PO Q6H PRN PRN Reason: Nausea/Vomiting Ondansetron HCl (Zofran) 4 mg IVP Q6H PRN PRN Reason: Nausea/Vomiting Pantoprazole Sodium (Protonix) 40 mg PO BID [facility] Last Admin: 07/31/19 20:40 Dose: 40 mg Senna/Docusate Sodium (Senokot S) 2 tab PO BIDPRN PRN PRN Reason: Constipation Tamsulosin HCl (Flomax) 0.4 mg PO [facility] Last Admin: 07/31/19 20:40 Dose: 0.4 mg Vital Signs & Weight: Vital Signs Temp Pulse Resp BP BP Pulse Ox 08/01/19 07:57 98.1 F 69 18 136/60 97 08/01/19 04:30 69 18 127/59 L 96 08/01/19 02:34 84 97 07/31/19 23:25 98.4 F 88 13 150/56 H 98 07/31/19 22:43 86 97 Weight 167 lb 6.4 oz - Physical Exam General: alert & oriented x3 HEENT: mucus membranes moist Neck: supple neck Cardiac: regular rate and rhythm, S1/S2 Lungs: clear to auscultation Neuro: cranial nerve 2-12 intact - Labs Result Diagrams: 08/01/19 04:30 08/01/19 04:30 Troponin/CKMB CK-MB (CK-2) 1.7 ng/mL (0-6.6) 07/31/19 14:19 Troponin I 2.420 ng/mL (< 0.028) H* 07/31/19 17:14 - Telemetry Sinus rhythms and dysrhythmias: other (AV paced) - Assessment/Plan Assessment/Plan: 1. Acute on Chronic systolic HF - Echo was done today and waiting for the result 2. Acute anemia - waiting for occult stool result. 3. Ischemic CMY with s/p BiV AICD - S/p VT RFA x2 in 07/2019 at [facility] (last procedure was on 07/27/2019) 4. CAD with hx of CABG x4 in 2004 and s/p LHC with patent grafts in 07/2019 - 5. Prox Aflutter with hx of RFA in 2012 and 2014 - 6. HTN - stable 7. ESRD with HD - managed by Dr Jo 8. HLD - 9. SA with Cpap - 10. Elevated trop - most likely 2/2 s/p VT RFA in 07/2019 (last procedure was on 07/27/2019) MAR reviewed Pt. seen and eval. by me. I agree with the A/P by the [employer]. He is comfortable at this time.The symptoms may be associated with the new onset anemia. The BNP is elevated and this is liely due to volume overload due to his renal filure. He is to have dialysis today. The cardiac status appears stable. felisa
[2019-08-01] MEDS: Atorvastatin Calcium 40 MG TAB PO SCH (10:14)
[2019-08-01] MEDS: Carvedilol 25 MG TAB PO SCH ×2 (10:15→23:00)
--- NOTE | 2019-08-01 13:22 | PDOC.HOSPP ---
- Subjective Encounter Date: 08/01/19 Encounter Time: 10:00 Subjective: Patient seen and examined. No new complaints. No overnight events - Objective Vital Signs & Weight: Vital Signs (12 hours) Temp Pulse Pulse Pulse Pulse Pulse Resp 08/01/19 11:00 72 18 08/01/19 10:48 70 69 75 79 08/01/19 07:57 98.1 F 69 18 08/01/19 04:30 69 18 08/01/19 02:34 84 BP BP BP BP BP BP BP 08/01/19 11:00 123/58 L 08/01/19 10:48 155/66 H 123/58 L 130/58 L 146/66 H 08/01/19 07:57 136/60 08/01/19 04:30 127/59 L 08/01/19 02:34 BP BP Pulse Ox 08/01/19 11:00 130/58 L 155/66 H 95 08/01/19 10:48 08/01/19 07:57 97 08/01/19 04:30 96 08/01/19 02:34 97 Weight Weight 167 lb 6.4 oz I&O: 07/31/19 08/01/19 08/02/19 06:59 06:59 06:59 Output Total 0 Balance 0 Result Diagrams: 08/01/19 04:30 08/01/19 04:30 Radiology Reviewed by me: Yes EKG Reviewed by me: Yes Hospitalist ROS - Review of Systems ENT: denies: ear pain, ear discharge, nose pain, nose discharge, nose congestion , mouth pain, mouth swelling, throat pain, throat swelling, other Respiratory: denies: cough, dry, shortness of breath, hemoptysis, SOB with excertion, pleuritic pain, sputum, wheezing, other Cardiovascular: denies: chest pain, palpitations, orthopnea, paroxysmal noc. dyspnea, edema, light headedness, other Gastrointestinal: denies: nausea, vomiting, abdominal pain, diarrhea, constipation, melena, hematochezia, other Genitourinary: denies: dysuria, frequency, incontinence, hematuria, retention, other Musculoskeletal: denies: neck pain, shoulder pain, arm pain, back pain, hand pain, leg pain, foot pain, other - Medication Medications: Active Medications Generic Name Dose Route Start Last Admin Trade Name Freq PRN Reason Stop Dose Admin Amiodarone HCl 200 mg 07/31/19 21:00 07/31/19 20:38 Cordarone PO 200 mg HS [facility] Administration Aspirin 81 mg 07/31/19 21:00 07/31/19 20:38 Aspirin Chewable PO 81 mg HS [facility] Administration Atorvastatin Calcium 40 mg 08/01/19 09:00 08/01/19 10:14 Lipitor PO 40 mg DAILY [facility] Administration Carvedilol 12.5 mg 07/31/19 21:00 08/01/19 10:15 Coreg PO 12.5 mg BID [facility] Administration Pantoprazole Sodium 40 mg 07/31/19 21:00 08/01/19 10:15 Protonix PO 40 mg BID [facility] Administration Tamsulosin HCl 0.4 mg 07/31/19 21:00 07/31/19 20:40 Flomax PO 0.4 mg HS [facility] Administration - Exam General Appearance: NAD, awake alert Eye: PERRL, anicteric sclera ENT: normocephalic atraumatic, no oropharyngeal lesions Neck: supple, symmetric, no JVD, no thyromegaly Heart: RRR, no murmur, no gallops, no rubs Respiratory: CTAB, no wheezes, no rales, no ronchi Gastrointestinal: soft, non-tender, non-distended, normal bowel sounds Extremities: no cyanosis, no clubbing Skin: normal turgor, no lesions Neurological: no focal deficits Musculoskeletal: normal tone, normal strength Psychiatric: normal affect, normal behavior Hosp A/P (1) Type [address] elevation Code(s): I21.A1 - MYOCARDIAL INFARCTION TYPE 2 Status: Acute (2) ESRD (end stage renal disease) on dialysis Code(s): N18.6 - END STAGE RENAL DISEASE; Z99.2 - DEPENDENCE ON RENAL DIALYSIS Status: Acute (3) HLD (hyperlipidemia) Code(s): E78.5 - HYPERLIPIDEMIA, UNSPECIFIED Status: Acute (4) Syncope Code(s): R55 - SYNCOPE AND COLLAPSE Status: Acute (5) Ischemic cardiomyopathy Code(s): I25.5 - ISCHEMIC CARDIOMYOPATHY Status: Chronic (6) Symptomatic anemia Code(s): D64.9 - ANEMIA, UNSPECIFIED Status: Acute - Plan old records reviewed/req will transfuse 1 unit with HD for symptomatic anemia medication reviewed and continue to provide symptomatic care cardiology following
[2019-08-01] MEDS ORDERED: Furosemide 80 MG TAB PO SCH (15:00)
[2019-08-01] MEDS: Tamsulosin HCl 0.4 MG CAP PO SCH (23:00)
[2019-08-01] MEDS: Aspirin Chewable 81 MG TAB PO SCH (23:00)
[2019-08-01] MEDS: Amiodarone 200 MG TAB PO SCH (23:00)
[2019-08-01 23:16] LABS: HBSAg Index 0.21 S/CO (0-0.99); Hep B Surf Ag Non-Reactive S/CO (NonReactive)
[2019-08-02] MEDS ORDERED: Furosemide 80 MG TAB PO SCH (07:30)
[2019-08-02 08:24] VITALS: TEMP 98.6
[2019-08-02 08:36] LABS: #Eosinphils 0.3 thou/uL (0.0-0.7); #Monocytes 0.8 thou/uL (0.11-0.59); #Neutrophils 6.7 thou/uL (1.40-6.50); %Basophils 0.5 % (0.0-1.0); %Lymphocytes 11.2 % (21.0-51.0); %Monocytes 9.3 % (0.0-10.0); Hemoglobin 8.8 g/dL (14.0-18.0); Mean Corpuscular HGB CONC 34.2 g/dL (32.0-36.0); Mean Corpuscular Hemoglobin 34.3 pg (27.0-31.0); Mean Platelet Volume 7.9 fL (7.4-10.4); Platelet Count 182 thou/uL (130-400); RBC Distribution Width 13.7 % (11.5-14.5); Red Blood Cell (RBC) Count 2.56 mill/uL (4.70-6.10); White Blood Cell (WBC) Count 8.9 thou/uL (4.8-10.8)
--- NOTE | 2019-08-02 08:55 | PDOC.CPN ---
- Subjective Date: 08/02/19 Time: 08:55 Interval history: The pt seen and examined. No overnight events. No cardiac complaints. - Objective Allergies/Adverse Reactions: Allergies Allergy/AdvReac Type Severity Reaction Status Date / Time vancomycin Allergy Verified 07/15/19 17:11 Visit Medications: Current Medications Acetaminophen (Tylenol) 650 mg PO Q4H PRN PRN Reason: Headache/Fever/Mild Pain (1-3) Acetaminophen (Tylenol) 650 mg [place] Q4H PRN PRN Reason: Headache/Fever/Mild Pain (1-3) Amiodarone HCl (Cordarone) 200 mg PO HS [facility] Last Admin: 08/01/19 23:00 Dose: 200 mg Aspirin (Aspirin Chewable) 81 mg PO HS [facility] Last Admin: 08/01/19 23:00 Dose: 81 mg Atorvastatin Calcium (Lipitor) 40 mg PO DAILY [facility] Last Admin: 08/01/19 10:14 Dose: 40 mg Carvedilol (Coreg) 12.5 mg PO BID [facility] Last Admin: 08/01/19 23:00 Dose: 12.5 mg Furosemide (Lasix) 80 mg PO DAILY[facility] Guaifenesin/Dextromethorphan (Robitussin Dm) 15 ml PO Q4H PRN PRN Reason: Cough Ondansetron HCl (Zofran Odt) 4 mg PO Q6H PRN PRN Reason: Nausea/Vomiting Ondansetron HCl (Zofran) 4 mg IVP Q6H PRN PRN Reason: Nausea/Vomiting Pantoprazole Sodium (Protonix) 40 mg PO BID [facility] Last Admin: 08/01/19 23:00 Dose: 40 mg Senna/Docusate Sodium (Senokot S) 2 tab PO BIDPRN PRN PRN Reason: Constipation Tamsulosin HCl (Flomax) 0.4 mg PO [facility] Last Admin: 08/01/19 23:00 Dose: 0.4 mg Vital Signs & Weight: Vital Signs Temp Pulse Resp BP BP BP Pulse Ox 08/02/19 07:58 98.6 F 70 16 140/63 139/63 117/52 L 96 08/02/19 04:02 98.8 F 70 18 125/56 L 94 L 08/01/19 22:41 99.2 F 70 16 149/97 H 92 L Weight 151 lb 3.794 oz - Physical Exam General: alert & oriented x3 Cardiac: regular rate and rhythm, S1/S2 Lungs: clear to auscultation Neuro: cranial nerve 2-12 intact - Labs Result Diagrams: 08/02/19 08:28 08/01/19 04:30 Troponin/CKMB CK-MB (CK-2) 1.7 ng/mL (0-6.6) 07/31/19 14:19 Troponin I 2.420 ng/mL (< 0.028) H* 07/31/19 17:14 - Telemetry Sinus rhythms and dysrhythmias: other (AV paced) - Assessment/Plan Assessment/Plan: 1. Acute on Chronic systolic HF - Echo with EF 30-35%; on bblocker and HD; not on CHRISTINE/ARB due to hx of CKD 2. Acute anemia with s/p 1 PRBC tx on 08/01/2019 - Hgb today was 8.8 from 7.3 yesterday after 1 unit of PRBC tx; waiting for occult stool result. 3. Ischemic CMY with s/p BiV AICD - S/p VT RFA x2 in 07/2019 at [facility] (last procedure was on 07/27/2019) - on BBlocker and Amiodarone 4. CAD with hx of CABG x4 in 2004 and s/p LHC with patent grafts in 07/2019 - 5. Prox Aflutter with hx of RFA in 2012 and 2014 - 6. HTN - stable 7. ESRD with HD - managed by Dr Jo 8. HLD - 9. SA with Cpap 10. Elevated trop - most likely 2/2 s/p VT RFA in 07/2019 (last procedure was on 07/27/2019) MAR reviewed
[2019-08-02] MEDS: Carvedilol 25 MG TAB PO SCH (10:20)
[2019-08-02] MEDS: Atorvastatin Calcium 40 MG TAB PO SCH (10:21)
[2019-08-02 12:14] VITALS: BP 121/58
--- NOTE | 2019-08-02 14:09 | DIS ---
DATE OF ADMISSION: 07/31/2019 DATE OF DISCHARGE: 08/02/2019 PRIMARY CARE PHYSICIAN: Frank Fletcher MD DISCHARGE DISPOSITION: Home. PRIMARY DISCHARGE DIAGNOSES: 1. Symptomatic anemia, status post transfusion. 2. Type [address] elevation due to demand ischemia secondary to VT ablation therapy. SECONDARY DISCHARGE DIAGNOSES: 1. End-stage renal disease, on hemodialysis. 2. Chronic systolic heart failure. 3. Ischemic cardiomyopathy. 4. Coronary artery disease. 5. Paroxysmal ventricular tachycardia. 6. Anemia of renal disease. PRIMARY PROCEDURE/OPERATION: Maintenance hemodialysis and blood transfusion. RADIOLOGICAL INVESTIGATION: Chest x-ray showed no acute cardiopulmonary process. Echocardiography showed EF 30% to 35% with global hypokinesis. SIGNIFICANT LABORATORY DATA: WBC 8.9, hemoglobin 8.8, MCV 101, and platelet 182. Sodium 140, potassium 4.3, and creatinine 5.33. Troponin 2.4. Hepatitis surface antigen negative. DISCHARGE MEDICATIONS: 1. Amiodarone 200 mg p.o. at bedtime. 2. Aspirin 81 mg p.o. at bedtime. 3. Lipitor 40 mg daily. 4. Coreg 12.5 mg b.i.d. 5. Lasix 80 mg daily. 6. Multivitamin one tablet daily. 7. Flomax 0.4 mg p.o. at bedtime. 8. Protonix 40 mg p.o. daily. CONTRAINDICATION: The patient has ischemic cardiomyopathy and chronic systolic heart failure, but he is not on CHRISTINE inhibitor or ARB because of ESRD and contraindicated because of risk of hyperkalemia. INPATIENT MANAGEMENT TRAINEE MARKETING: Cardiology Group was following while in hospital. TEST RESULT PENDING ON DISCHARGE: None. ALLERGIES: VANCOMYCIN. DISCHARGE PLAN: Post hospital, the patient will follow up with primary care physician as well as the patient will make appointment with Dr. Monte as instructed. HOSPITAL COURSE: A 78-year-old male, who has underlying history of paroxysmal ventricular tachycardia and he required recently ablation for VT in [place]. Subsequently, the patient was feeling dizzy spell and syncopal episode and fatigue and dyspnea on exertion and weakness and that is why he came to emergency room. Incidentally, the patient's blood test was showing elevated troponin, but the patient was not having any chest pain. We consulted Cardiology during this admission and Cardiology recommended that elevated troponin is related with demand ischemia from VT ablation. The patient's symptomatology was consistent with symptomatic anemia, which required 1 unit of blood transfusion with dialysis. The patient does not have any blood loss. At this point, the patient will require outpatient evaluation. Cardiology cleared him for discharge. There is no plan for any other procedure. The patient does not want to stay in hospital for any anemia workup at this point. He will continue above-mentioned medication. I have seen and examined the patient at the bedside today. PHYSICAL EXAMINATION: VITAL SIGNS: Currently, temperature 98.6, saturation 96% on room air, blood pressure 121/58, pulse 70, and respiratory rate 16. Weight 151 pounds. GENERAL: The patient is currently alert, awake, no acute distress. HEENT: Head; normocephalic, atraumatic. Eyes; pupils are round and reactive to light. Extraocular muscle intact. ENT; oropharynx within normal limits. Moist mucous membranes. No oral lesion. No pharyngeal erythema. No exudate. NECK: Supple. No JVD. No meningeal signs of irritation. LUNGS: Clear to auscultation without any rhonchi or rales. CARDIAC: S1 and S2, regular. No murmur. No gallop. No rub. ABDOMEN: Soft and benign without any tenderness. EXTREMITIES: No edema. NEUROLOGIC: Nonfocal examination. Job ID: [id number]
== END 2019-08-02 11:58 | disposition home or self-care (01) ==
LOC: ERS 10:43 → 2SW 15:07
PROVIDERS: ADMIT Internal Medicine; ATTEND Internal Medicine
DX: I13.2 Hypertensive heart and chronic kidney disease with heart failure and with stage 5 chronic kidney disease, or end stage renal disease (principal); N18.6 End stage renal disease; I50.43 Acute on chronic combined systolic (congestive) and diastolic (congestive) heart failure; D63.1 Anemia in chronic kidney disease; I21.A1 Myocardial infarction type 2; I25.5 Ischemic cardiomyopathy; I47.2 Ventricular tachycardia; I25.10 Atherosclerotic heart disease of native coronary artery without angina pectoris; E78.5 Hyperlipidemia, unspecified; G47.33 Obstructive sleep apnea (adult) (pediatric); R79.89 Other specified abnormal findings of blood chemistry; Z99.2 Dependence on renal dialysis; Z87.891 Personal history of nicotine dependence; Z79.01 Long term (current) use of anticoagulants; Z79.82 Long term (current) use of aspirin; Z79.899 Other long term (current) drug therapy; Z88.1 Allergy status to other antibiotic agents; Z95.1 Presence of aortocoronary bypass graft; Z95.810 Presence of automatic (implantable) cardiac defibrillator; Z99.89 Dependence on other enabling machines and devices; Z98.890 Other specified postprocedural states
CPT/HCPCS: 36430; 71045; 80048; 80053; 82553; 83735; 83880; 84484 ×2; 85025 ×3; 86850; 86900; 86901; 86920; 87340; 93005; 93306; 94660 ×2; 97116 ×2; 97139 ×2; 99285; G0378 ×4; P9016; 36415; 36416; J1644

== ENCOUNTER 2020-01-28 14:09 | Emergency (ER) | payer MEDICARE, OTHER ==
[2020-01-29 16:02] LABS: SARS-CoV-2 MS2 Positive; SARS-CoV-2 N Gene Positive; SARS-CoV-2 S Gene Positive; SARS-CoV-2 by NAA DETECTED (NotDetected); SARS-CoV-2 orf1ab Positive
== END 2020-01-28 14:59 | disposition home or self-care (01) ==
LOC: ERS 14:09
DX: U07.1 COVID-19 (principal); E78.5 Hyperlipidemia, unspecified; I10 Essential (primary) hypertension; Z87.891 Personal history of nicotine dependence; Z79.899 Other long term (current) drug therapy; Z79.82 Long term (current) use of aspirin
CPT/HCPCS: 87635; 87804; U0003

== ENCOUNTER 2020-01-28 23:32 | Inpatient (IN) | payer MEDICARE, OTHER ==
[2020-01-29 00:20] LABS: #Lymphocytes 0.5 thou/uL (1.20-3.40); #Monocytes 0.7 thou/uL (0.11-0.59); #Neutrophils 4.3 thou/uL (1.40-6.50); %Eosinophils 0.4 % (0.0-10.0); %Lymphocytes 9.8 % (21.0-51.0); %Neutrophils 77.8 % (42.0-75.0); Hemoglobin 11.4 g/dL (14.0-18.0); Mean Corpuscular HGB CONC 34.5 g/dL (32.0-36.0); Mean Corpuscular Hemoglobin 34.9 pg (27.0-31.0); Mean Platelet Volume 9.3 fL (7.4-10.4); Platelet Count 102 thou/uL (130-400); RBC Distribution Width 12.7 % (11.5-14.5); Red Blood Cell (RBC) Count 3.26 mill/uL (4.70-6.10); White Blood Cell (WBC) Count 5.5 thou/uL (4.8-10.8)
[2020-01-29 00:42] LABS: ALT (SGPT) 229 U/L (8-55); AST (SGOT) 206 U/L (5-34); Albumin 3.9 g/dL (3.4-4.8); Alkaline Phosphatase 96 U/L (40-110); Anion Gap 23 mmol/L (10-20); BUN (Urea Nitrogen) 68 mg/dL (8.4-25.7); Calc. Creatinine Clearance 0 mL/min (70-130); Calcium 9.4 mg/dL (7.8-10.44); Carbon Dioxide 26 mmol/L (23-31); Chloride 91 mmol/L (98-107); Estimated GFR-MDRD 8; Globulin 2.7 g/dL (2.4-3.5); Glucose 141 mg/dL (83-110); Protein, Total 6.6 g/dL (5.8-8.1); Sodium 133 mmol/L (136-145)
[2020-01-29 00:51] LABS: Potassium 6.6 mmol/L (3.5-5.1)
[2020-01-29 01:03] LABS: CKMB 1.5 ng/mL (0-6.6)
[2020-01-29] MEDS ORDERED: Calcium Chloride 1 GM/10 ML Abboject SYRINGE ONE (01:30)
[2020-01-29] MEDS ORDERED: Insulin Regular 300 UNITS/3 ML VIAL ONE (01:30)
[2020-01-29] MEDS ORDERED: Dextrose 50% Abboject 50 ML SYRINGE ONE (01:30)
[2020-01-29] MEDS ORDERED: Sodium Bicarb 50 MEQ/50 ML Abboject 8.4% SYRINGE ONE (01:30)
[2020-01-29 01:42] LABS: SARS-CoV-2 NAA Rapid Test DETECTED (NotDetected)
[2020-01-29] MEDS ORDERED: HYDROcodone/Acetaminophen 5/325 mg Tablet PO PRN (02:16)
[2020-01-29] MEDS ORDERED: Ondansetron PF 4 MG/2 ML Vial IVP PRN (02:16)
[2020-01-29] MEDS ORDERED: Ondansetron ODT 4 MG TAB PO PRN (02:16)
[2020-01-29] MEDS ORDERED: Acetaminophen 650 MG Suppository PR PRN (02:16)
[2020-01-29] MEDS ORDERED: Guaifenesin DM 100-10/5 ML UDCUP PO PRN (02:16)
[2020-01-29] MEDS ORDERED: Calcium Carbonate 500 MG ChewTAB PO PRN (02:16)
--- NOTE | 2020-01-29 02:30 | PDOC.HHP ---
Hospitalist HPI - History of Present Illness generalize weakness History of Present Illness: Case of an 79y/o male with pmhx of esrd, cad s/p ppm, hld, htn and chf who comes to hospital due to generalize weakness. patient refers he was on his usual state of health until today when he started with severe fatigue. he states he was on his home and was going go to climb a flight of stairs but was unable and fell down due to severe weakness which made him come to hospital to get a covid evaluation. patient was supposed to have h/d today but missed the appointment. at the ED patient was evaluated and found with pulmonary edema, hyperkalemia and covid positive for which hospitalist was called for further evaluation and management. patient denies fever chills diarrhea headache throat pain change in smell or taste does refers some nausea and cough, no sputum production Hospitalist ROS - Review of Systems All other systems reviewed; all pertinent +/- noted in HPI/Subj - Exam General Appearance: NAD, awake alert Eye: PERRL, anicteric sclera ENT: normocephalic atraumatic, no oropharyngeal lesions Neck: supple, symmetric, no JVD, no thyromegaly Heart: RRR, no murmur, no gallops, no rubs Respiratory: CTAB, no wheezes, no rales, no ronchi Gastrointestinal: soft, non-tender, non-distended, normal bowel sounds Extremities: no cyanosis, no clubbing, no edema Skin: normal turgor, no lesions, no rashes Neurological: cranial nerve grossly intact, normal sensation to touch, no weakness Musculoskeletal: normal tone, normal strength, no muscle wasting Psychiatric: normal affect, normal behavior, A&O x 3 Hospitalist Results - Labs Result Diagrams: 01/29/20 02:40 01/29/20 02:40 Lab results: WBC 5.5 thou/uL (4.8-10.8) 01/29/20 00:06 Hgb 11.4 g/dL (14.0-18.0) L 01/29/20 00:06 Hct 33.0 % (42.0-52.0) L 01/29/20 00:06 MCV 101.0 fL (78.0-98.0) H 01/29/20 00:06 Plt Count 102 thou/uL (130-400) L 01/29/20 00:06 Neutrophils % 77.8 % (42.0-75.0) H 01/29/20 00:06 Sodium 133 mmol/L (136-145) L 01/29/20 00:06 Potassium 6.6 mmol/L (3.5-5.1) H* 01/29/20 00:06 Chloride 91 mmol/L (98-107) L 01/29/20 00:06 Carbon Dioxide 26 mmol/L (23-31) 01/29/20 00:06 BUN 68 mg/dL (8.4-25.7) H 01/29/20 00:06 Creatinine 6.77 mg/dL (0.7-1.3) H 01/29/20 00:06 Glucose 141 mg/dL (83-110) H 01/29/20 00:06 Calcium 9.4 mg/dL (7.8-10.44) 01/29/20 00:06 Total Bilirubin 1.0 mg/dL (0.2-1.2) 01/29/20 00:06 AST 206 U/L (5-34) H 01/29/20 00:06 ALT 229 U/L (8-55) H 01/29/20 00:06 Alkaline Phosphatase 96 U/L (40-110) 01/29/20 00:06 CK-MB (CK-2) 1.5 ng/mL (0-6.6) 01/29/20 00:06 Troponin I 0.073 ng/mL (< 0.028) H 01/29/20 00:06 B-Natriuretic Peptide 4805.4 pg/mL (0-100) H 01/29/20 00:06 Serum Total Protein 6.6 g/dL (5.8-8.1) 01/29/20 00:06 Albumin 3.9 g/dL (3.4-4.8) 01/29/20 00:06 Hospitalist H&P A/P - Problem (1) Acute exacerbation of CHF (congestive heart failure) Code(s): I50.9 - HEART FAILURE, UNSPECIFIED Status: Chronic Qualifiers: Qualified Code(s): I50.23 - Acute on chronic systolic (congestive) heart failure (2) Fluid overload Code(s): E87.70 - FLUID OVERLOAD, UNSPECIFIED Status: Acute (3) COVID-19 Code(s): U07.1 - COVID-19 Status: Acute (4) ESRD (end stage renal disease) on dialysis Code(s): N18.6 - END STAGE RENAL DISEASE; Z99.2 - DEPENDENCE ON RENAL DIALYSIS Status: Acute (5) HLD (hyperlipidemia) Code(s): E78.5 - HYPERLIPIDEMIA, UNSPECIFIED Status: Acute (6) CAD (coronary artery disease) Code(s): I25.10 - ATHSCL HEART DISEASE OF [place] CORONARY ARTERY W/O ANG PCTRS Status: Chronic (7) Hyperkalemia Code(s): E87.5 - HYPERKALEMIA Status: Acute - Plan Plan: 79y/o male with the stated pmhx who present with covid 19 and fluid overload / dchf due to missing h/d treatment fluid overload / d compensated chf - cxr with pulmonary edema cardiomegaly - elevated probnp 4k - likely secondary to missing h/d - recent 2d echo ef 35% and diastolic dysfunction - will get h/d soon - continue beta andres hyperkalemia - no ekg changes - h/d treatment esrd on h/d - missing todays treatment - type rolling machine operator consulted dm ss+ acu atrial fibrillation - continue rythm control w amiodarone - continue with asa cad - continue asa / statin / beta andres
[2020-01-29 03:04] LABS: Band 8 % (5-11); Hemoglobin 11.3 g/dL (14.0-18.0); Lymphocytes 7 % (21-51); MDiff Complete? YES; Mean Corpuscular HGB CONC 34.6 g/dL (32.0-36.0); Mean Corpuscular Hemoglobin 35.3 pg (27.0-31.0); Mean Platelet Volume 9.9 fL (7.4-10.4); Monocytes 14 % (0-10); Neutrophil 71 % (42-75); Platelet Count 97 thou/uL (130-400); Platelet Morphology Comment Appears Decreased; RBC Distribution Width 12.8 % (11.5-14.5); Red Blood Cell (RBC) Count 3.21 mill/uL (4.70-6.10); White Blood Cell (WBC) Count 4.8 thou/uL (4.8-10.8)
[2020-01-29 03:23] LABS: ALT (SGPT) 233 U/L (8-55); AST (SGOT) 211 U/L (5-34); Albumin 3.7 g/dL (3.4-4.8); Alkaline Phosphatase 92 U/L (40-110); Anion Gap 21 mmol/L (10-20); BUN (Urea Nitrogen) 69 mg/dL (8.4-25.7); Bilirubin, Total 0.9 mg/dL (0.2-1.2); Calc. Creatinine Clearance 0 mL/min (70-130); Calcium 10.1 mg/dL (7.8-10.44); Carbon Dioxide 25 mmol/L (23-31); Chloride 93 mmol/L (98-107); Estimated GFR-MDRD 8; Globulin 2.6 g/dL (2.4-3.5); Glucose 176 mg/dL (83-110); Potassium 5.4 mmol/L (3.5-5.1); Protein, Total 6.3 g/dL (5.8-8.1); Sodium 134 mmol/L (136-145)
[2020-01-29 03:27] LABS: Troponin I 0.081 ng/mL (< 0.028)
[2020-01-29 03:43] LABS: Hep B Surf Ag Non-Reactive S/CO (NonReactive)
[2020-01-29] MEDS ORDERED: Dextrose 5% in Water 1,000 ML IV PRN (03:58)
[2020-01-29] MEDS ORDERED: Dextrose 50% Abboject 50 ML SYRINGE SLOW IVP PRN (03:58)
[2020-01-29 06:45] LABS: Troponin I 0.086 ng/mL (< 0.028)
[2020-01-29 07:38] LABS: Potassium 3.2 mmol/L (3.5-5.1)
--- NOTE | 2020-01-29 08:23 | RAD ---
CHEST 1 VIEW: Date: 01/28/2020 INDICATION: Dyspnea. COMPARISON: Prior exam dated 07/31/2019. FINDINGS: There is bilateral air space disease seen within the right mid lung, right lower lobe, and left lower lobe suspicious for pneumonia. There is cardiomegaly. There are midline sternotomy changes. There is a multilead AICD. There are tiny bilateral pleural effusions. IMPRESSION: Findings suspicious for bilateral pneumonia and small bilateral pleural effusions with mild to modera te cardiomegaly. POS: BH
[2020-01-29] MEDS ORDERED: Enoxaparin Sodium 30 MG/0.3 ML SYRINGE SC SCH (09:00)
[2020-01-29] MEDS ORDERED: Carvedilol 25 MG TAB PO SCH (09:00)
[2020-01-29] MEDS ORDERED: Heparin 5,000 UNITS/ML VIAL SC SCH (12:00)
[2020-01-29] MEDS ORDERED: Carvedilol 6.25 MG TAB PO SCH (12:15)
--- NOTE | 2020-01-29 15:33 | PDOC.HOSPP ---
- Subjective Encounter Date: 01/29/20 Encounter Time: 15:30 Subjective: f/u for dyspnea, resp failure with COVID-19 + on current O2 @ 3L/min NC. ESRD with HD initially with hyperkalemia now improved. - Objective Vital Signs & Weight: Vital Signs (12 hours) Temp Pulse Resp BP Pulse Ox 01/29/20 08:15 99.1 F 70 18 144/73 H 89 L 01/29/20 03:50 98.5 F 79 20 131/63 94 L Weight Weight 163 lb 11.2 oz Result Diagrams: 01/29/20 02:40 01/29/20 07:20 Additional Labs: Accuchecks 01/29/20 01/29/20 05:58 01:50 POC Glucose 107 137 H Laboratory Tests 12/01/16 12/01/16 12/01/16 09:33 09:33 09:33 Plt Count 109 L Sodium 129 L Potassium 2.3 L* Creatinine 6.05 H Phosphorus 4.7 Magnesium 2.7 H AST ALT Troponin I B-Natriuretic Peptide Hep Bs Antigen SARS-CoV-2 Rap RNA(RT-PCR) 12/03/16 07/31/19 01/29/20 09:57 11:26 00:01 Plt Count Sodium Potassium Creatinine Phosphorus Magnesium AST ALT Troponin I B-Natriuretic Peptide 8075.5 H 2819.1 H Hep Bs Antigen Non-Reactive SARS-CoV-2 Rap RNA(RT-PCR) 01/29/20 01/29/20 01/29/20 00:06 00:06 00:06 Plt Count Sodium Potassium 6.6 H* Creatinine 6.77 H Phosphorus Magnesium AST 206 H ALT 229 H Troponin I 0.073 H B-Natriuretic Peptide 4805.4 H Hep Bs Antigen SARS-CoV-2 Rap RNA(RT-PCR) 01/29/20 01/29/20 01/29/20 00:30 02:40 02:40 Plt Count Sodium Potassium 5.4 H Creatinine Phosphorus Magnesium AST 211 H ALT 233 H Troponin I 0.081 H B-Natriuretic Peptide Hep Bs Antigen SARS-CoV-2 Rap RNA(RT-PCR) DETECTED A* 01/29/20 06:03 Plt Count Sodium Potassium Creatinine Phosphorus Magnesium AST ALT Troponin I 0.086 H B-Natriuretic Peptide Hep Bs Antigen SARS-CoV-2 Rap RNA(RT-PCR) Radiology Reviewed by me: Yes (PCXR - bilat infiltrates) EKG Reviewed by me: Yes (Tele - ) - Exam General Appearance: NAD, awake alert Eye: PERRL, anicteric sclera ENT: normocephalic atraumatic, no oropharyngeal lesions Neck: supple, symmetric, no JVD, no thyromegaly Heart: no gallops, no rubs, normal peripheral pulses, irregular Heart - other findings: S1, S2 Respiratory: no wheezes, tachypneic Respiratory - other findings: few scattered rhonchi Gastrointestinal: soft, non-tender, non-distended, normal bowel sounds, no palpable masses Extremities: no cyanosis, no clubbing, no edema Skin: normal turgor Neurological: cranial nerve grossly intact, no new deficit Musculoskeletal: normal tone, generalized weakness Psychiatric: normal affect, A&O x 3 Hosp A/P (1) COVID-19 Code(s): U07.1 - COVID-19 Status: Acute Plan: Start Zithromax/Dexamethasone/Vitamine C/Zinc, O2 PRN, isolation precautions (2) Acute respiratory failure with hypoxia Code(s): J96.01 - ACUTE RESPIRATORY FAILURE WITH HYPOXIA Status: Acute Plan: See above #1 (3) Acute on chronic systolic (congestive) heart failure Code(s): I50.23 - ACUTE ON CHRONIC SYSTOLIC (CONGESTIVE) HEART FAILURE Status : Acute Plan: Likely due to volume overload in context of ESRD, continue HD for volume removal , monitor clinical response (4) Hyperkalemia Code(s): E87.5 - HYPERKALEMIA Status: Acute Plan: Resolving with HD, serial K+ monitoring (5) ESRD (end stage renal disease) on dialysis Code(s): N18.6 - END STAGE RENAL DISEASE; Z99.2 - DEPENDENCE ON RENAL DIALYSIS Status: Chronic (6) Transaminitis Code(s): R74.0 - NONSPEC ELEV OF LEVELS OF TRANSAMNS & LACTIC ACID DEHYDRGNSE Status: Acute Plan: Due to volume overload, serial LFT monitoring - Plan continue antibiotics, social media marketing analyst, respiratory therapy, DVT proph w/SCDs Continue pulmonary support O2 support PRN Add Zithromax Add Dexamethasone Add Vitamin C/Zinc HD per Renal service AM lab: CMP
[2020-01-29] MEDS: Azithromycin 500 MG in Sodium Chloride 0.9% 250 ML 250 ML IVPB SCH (17:18)
[2020-01-29] MEDS: Dexamethasone 4 mg/ml Vial SLOW IVP SCH (17:18)
[2020-01-29] MEDS: Tamsulosin HCl 0.4 MG CAP PO SCH (21:45)
[2020-01-29] MEDS: Carvedilol 6.25 MG TAB PO SCH (21:45)
[2020-01-29] MEDS: Amiodarone 200 MG TAB PO SCH (21:45)
[2020-01-29] MEDS: Aspirin Chewable 81 MG TAB PO SCH (21:45)
[2020-01-29] MEDS: Atorvastatin Calcium 40 MG TAB PO SCH (21:45)
[2020-01-29] MEDS: Heparin 5,000 UNITS/ML VIAL SC SCH (22:04)
[2020-01-30 05:00] LABS: ALT (SGPT) 534 U/L (8-55); AST (SGOT) 516 U/L (5-34); Albumin 3.7 g/dL (3.4-4.8); Alkaline Phosphatase 94 U/L (40-110); Anion Gap 18 mmol/L (10-20); BUN (Urea Nitrogen) 58 mg/dL (8.4-25.7); Bilirubin, Total 0.9 mg/dL (0.2-1.2); Calc. Creatinine Clearance 12 mL/min (70-130); Calcium 9.1 mg/dL (7.8-10.44); Carbon Dioxide 28 mmol/L (23-31); Chloride 96 mmol/L (98-107); Estimated GFR-MDRD 11; Globulin 2.7 g/dL (2.4-3.5); Glucose 137 mg/dL (83-110); Potassium 5.4 mmol/L (3.5-5.1); Protein, Total 6.4 g/dL (5.8-8.1); Sodium 137 mmol/L (136-145)
[2020-01-30] MEDS: Zinc Sulfate 220 MG CAP PO SCH (07:51)
[2020-01-30] MEDS: Multivitamin W/ Minerals 1 TAB PO SCH (07:51)
[2020-01-30] MEDS: Ascorbic Acid 500 mg Chewable Tablet PO SCH (07:51)
[2020-01-30] MEDS: Carvedilol 6.25 MG TAB PO SCH ×2 (07:51→20:10)
[2020-01-30] MEDS: Heparin 5,000 UNITS/ML VIAL SC SCH ×2 (07:51→20:09)
--- NOTE | 2020-01-30 12:56 | PDOC.HOSPP ---
- Subjective Encounter Date: 01/30/20 Encounter Time: 12:35 Subjective: f/u for COVID-19 PNA on 2L/min NC. Some coughing and SOB. Awaiting 2nd HD session. - Objective Vital Signs & Weight: Vital Signs (12 hours) Temp Pulse Resp BP BP Pulse Ox 01/30/20 11:16 70 18 128/63 97 01/30/20 08:00 97.9 F 71 20 105/57 L 94 L 01/30/20 03:55 97.5 F L 70 18 120/65 96 Weight Admit Weight 163 lb 11.2 oz Weight 155 lb 11.2 oz Result Diagrams: 01/29/20 02:40 01/30/20 04:22 Additional Labs: Accuchecks 01/29/20 01/29/20 21:47 17:29 POC Glucose 212 H 157 H Laboratory Tests 12/01/16 12/01/16 12/01/16 09:33 09:33 09:33 Plt Count 109 L Sodium 129 L Potassium 2.3 L* Creatinine 6.05 H Phosphorus 4.7 Magnesium 2.7 H AST ALT Troponin I B-Natriuretic Peptide Hep Bs Antigen SARS-CoV-2 Rap RNA(RT-PCR) 12/03/16 07/31/19 01/29/20 09:57 11:26 00:01 Plt Count Sodium Potassium Creatinine Phosphorus Magnesium AST ALT Troponin I B-Natriuretic Peptide 8075.5 H 2819.1 H Hep Bs Antigen Non-Reactive SARS-CoV-2 Rap RNA(RT-PCR) 01/29/20 01/29/20 01/29/20 00:06 00:06 00:06 Plt Count Sodium Potassium 6.6 H* Creatinine 6.77 H Phosphorus Magnesium AST 206 H ALT 229 H Troponin I 0.073 H B-Natriuretic Peptide 4805.4 H Hep Bs Antigen SARS-CoV-2 Rap RNA(RT-PCR) 01/29/20 01/29/20 01/29/20 00:30 02:40 02:40 Plt Count Sodium Potassium 5.4 H Creatinine Phosphorus Magnesium AST 211 H ALT 233 H Troponin I 0.081 H B-Natriuretic Peptide Hep Bs Antigen SARS-CoV-2 Rap RNA(RT-PCR) DETECTED A* 01/29/20 06:03 Plt Count Sodium Potassium Creatinine Phosphorus Magnesium AST ALT Troponin I 0.086 H B-Natriuretic Peptide Hep Bs Antigen SARS-CoV-2 Rap RNA(RT-PCR) EKG Reviewed by me: Yes (Tele - V-pacing) Hospitalist ROS - Medication Medications: Active Medications Generic Name Dose Route Start Last Admin Trade Name Nando PRN Reason Stop Dose Admin Amiodarone HCl 200 mg 01/29/20 21:00 01/29/20 21:45 Cordarone PO 200 mg HS ROMAN Administration Ascorbic Acid 1,000 mg 01/30/20 09:00 01/30/20 07:51 Vitamin C PO 1,000 mg DAILY ROMAN Administration Aspirin 81 mg 01/29/20 21:00 01/29/20 21:45 Aspirin Chewable PO 81 mg HS ROMAN Administration Atorvastatin Calcium 40 mg 01/29/20 21:00 01/29/20 21:45 Lipitor PO 40 mg HS ROMAN Administration Carvedilol 12.5 mg 01/29/20 21:00 01/30/20 07:51 Coreg PO 12.5 mg BID ROMAN Administration Dexamethasone 8 mg 01/29/20 16:00 01/29/20 17:18 Decadron SLOW IVP 8 mg Q24HR ROMAN Administration Heparin Sodium (Porcine) 5,000 units 01/29/20 21:00 01/30/20 07:51 Heparin SC 5,000 units BID ROMAN Administration Azithromycin 500 mg/ Sodium 250 mls @ 250 mls/hr 01/29/20 16:00 01/29/20 17: 18 Chloride IVPB 250 mls Q24HR ROMAN Administration Iron/Minerals/Multivitamins 1 tab 01/30/20 09:00 01/30/20 07:51 Theragran M PO 1 tab DAILY ROMAN Administration Tamsulosin HCl 0.4 mg 01/29/20 21:00 01/29/20 21:45 Flomax PO 0.4 mg HS ROMAN Administration Zinc Sulfate 220 mg 01/30/20 09:00 01/30/20 07:51 Zinc Sulfate PO 220 mg DAILY ROMAN Administration - Exam General Appearance: NAD, awake alert Eye: PERRL, anicteric sclera ENT: normocephalic atraumatic, no oropharyngeal lesions Neck: supple, symmetric, no JVD, no thyromegaly, no lymphadenopathy Heart: RRR, no gallops, no rubs, normal peripheral pulses Heart - other findings: S1, S2 Respiratory: no wheezes, normal chest expansion, tachypneic Respiratory - other findings: few basilar rhonchi Gastrointestinal: soft, non-tender, non-distended, normal bowel sounds, no palpable masses Extremities: no cyanosis, no clubbing, no edema Skin: normal turgor, no lesions Neurological: cranial nerve grossly intact, no new deficit Musculoskeletal: normal tone, generalized weakness Psychiatric: normal affect, A&O x 3 Hosp A/P (1) COVID-19 Code(s): U07.1 - COVID-19 Status: Acute Plan: Continue Zithromax/Dexamethasone/Albuterol MDI/Vit C/Zinc, likely will need home O2 (2) Acute respiratory failure with hypoxia Code(s): J96.01 - ACUTE RESPIRATORY FAILURE WITH HYPOXIA Status: Acute Plan: See above, currently receiving 2L/min NC, likely will need home O2 (3) Acute on chronic systolic (congestive) heart failure Code(s): I50.23 - ACUTE ON CHRONIC SYSTOLIC (CONGESTIVE) HEART FAILURE Status : Acute (4) Hyperkalemia Code(s): E87.5 - HYPERKALEMIA Status: Acute (5) ESRD (end stage renal disease) on dialysis Code(s): N18.6 - END STAGE RENAL DISEASE; Z99.2 - DEPENDENCE ON RENAL DIALYSIS Status: Chronic Plan: Plan for HD today (6) Transaminitis Code(s): R74.0 - NONSPEC ELEV OF LEVELS OF TRANSAMNS & LACTIC ACID DEHYDRGNSE Status: Acute Plan: Worsening, likely combination of volume overload due to ESRD and COVID, serial monitoring - Plan continue antibiotics, school social worker, respiratory therapy, DVT proph w/heparin , DVT proph w/SCDs Continue pulmonary support O2 support PRN Add Zithromax Add Dexamethasone Add Vitamin C/Zinc HD per Renal service AM lab: CMP ? Home in 24h
[2020-01-30] MEDS: Azithromycin 500 MG in Sodium Chloride 0.9% 250 ML 250 ML IVPB SCH (17:03)
[2020-01-30] MEDS: Dexamethasone 4 mg/ml Vial SLOW IVP SCH (17:03)
[2020-01-30] MEDS: Aspirin Chewable 81 MG TAB PO SCH (20:09)
[2020-01-30] MEDS: Tamsulosin HCl 0.4 MG CAP PO SCH ×2 (20:10→20:11)
[2020-01-30] MEDS: Atorvastatin Calcium 40 MG TAB PO SCH ×2 (20:10→20:12)
[2020-01-30] MEDS: Amiodarone 200 MG TAB PO SCH (20:10)
[2020-01-31] MEDS ORDERED: guaiFENesin 200 MG TAB PO PRN (04:42)
[2020-01-31 05:09] LABS: ALT (SGPT) 671 U/L (8-55); AST (SGOT) 561 U/L (5-34); Albumin 3.7 g/dL (3.4-4.8); Alkaline Phosphatase 96 U/L (40-110); Anion Gap 17 mmol/L (10-20); BUN (Urea Nitrogen) 51 mg/dL (8.4-25.7); Bilirubin, Total 0.8 mg/dL (0.2-1.2); Calc. Creatinine Clearance 14 mL/min (70-130); Calcium 8.9 mg/dL (7.8-10.44); Carbon Dioxide 29 mmol/L (23-31); Chloride 95 mmol/L (98-107); Estimated GFR-MDRD 14; Globulin 2.8 g/dL (2.4-3.5); Glucose 118 mg/dL (83-110); Potassium 4.9 mmol/L (3.5-5.1); Protein, Total 6.5 g/dL (5.8-8.1); Sodium 136 mmol/L (136-145)
[2020-01-31] MEDS: Heparin 5,000 UNITS/ML VIAL SC SCH ×2 (08:19→20:01)
[2020-01-31] MEDS: Zinc Sulfate 220 MG CAP PO SCH (08:20)
[2020-01-31] MEDS: Ascorbic Acid 500 mg Chewable Tablet PO SCH (08:20)
[2020-01-31] MEDS: Multivitamin W/ Minerals 1 TAB PO SCH (08:20)
[2020-01-31] MEDS: Carvedilol 6.25 MG TAB PO SCH ×2 (08:20→20:01)
[2020-01-31] MEDS ORDERED: Ventilator Sedation Protocol 1 EACH FS ONE (10:42)
[2020-01-31] MEDS ORDERED: Lorazepam 2 MG/ML VIAL SLOW IVP PRN (10:45)
[2020-01-31] MEDS ORDERED: Fentanyl BOLUS 250 ML IVPB PRN (10:45)
[2020-01-31] MEDS ORDERED: Propofol BOLUS 1,000 MG/100 ML VIAL IV PRN (10:45)
[2020-01-31] MEDS ORDERED: fentaNYL Citrate/PF 2,000 MCG in Sodium Chloride 0.9% 60 ML IV SCH (10:45)
--- NOTE | 2020-01-31 10:47 | PDOC.HOSPP ---
- Subjective Encounter Date: 01/31/20 Encounter Time: 10:10 Subjective: Mckinley Yang called due to unresponsive, cardiac/resp arrest while walking with PT this am in the room. Pt was assisted to the bathroom floor by PT personnel and no head injury reported. Receiving chest compressions/respirations with BVM per respiratory. - Objective Vital Signs & Weight: Vital Signs (12 hours) Temp Pulse Resp BP BP Pulse Ox 01/31/20 08:47 92 L 01/31/20 08:31 98.6 F 70 20 124/75 92 L 01/31/20 03:05 98.2 F 70 14 120/60 95 Weight Admit Weight 163 lb 11.2 oz Weight 152 lb 1.6 oz I&O: 01/30/20 01/31/20 02/01/20 06:59 06:59 06:59 Intake Total 1540 Output Total 2500 Balance -960 Result Diagrams: 01/29/20 02:40 01/31/20 04:31 Additional Labs: Accuchecks 01/30/20 01/30/20 20:19 11:37 POC Glucose 169 H 215 H Laboratory Tests 12/01/16 12/01/16 12/01/16 09:33 09:33 09:33 Plt Count 109 L Sodium 129 L Potassium 2.3 L* Creatinine 6.05 H Phosphorus 4.7 Magnesium 2.7 H AST ALT Troponin I B-Natriuretic Peptide Hep Bs Antigen SARS-CoV-2 Rap RNA(RT-PCR) 12/03/16 07/31/19 01/29/20 09:57 11:26 00:01 Plt Count Sodium Potassium Creatinine Phosphorus Magnesium AST ALT Troponin I B-Natriuretic Peptide 8075.5 H 2819.1 H Hep Bs Antigen Non-Reactive SARS-CoV-2 Rap RNA(RT-PCR) 01/29/20 01/29/20 01/29/20 00:06 00:06 00:06 Plt Count Sodium Potassium 6.6 H* Creatinine 6.77 H Phosphorus Magnesium AST 206 H ALT 229 H Troponin I 0.073 H B-Natriuretic Peptide 4805.4 H Hep Bs Antigen SARS-CoV-2 Rap RNA(RT-PCR) 01/29/20 01/29/20 01/29/20 00:30 02:40 02:40 Plt Count Sodium Potassium 5.4 H Creatinine Phosphorus Magnesium AST 211 H ALT 233 H Troponin I 0.081 H B-Natriuretic Peptide Hep Bs Antigen SARS-CoV-2 Rap RNA(RT-PCR) DETECTED A* 01/29/20 06:03 Plt Count Sodium Potassium Creatinine Phosphorus Magnesium AST ALT Troponin I 0.086 H B-Natriuretic Peptide Hep Bs Antigen SARS-CoV-2 Rap RNA(RT-PCR) Radiology Reviewed by me: Yes (PCXR - pending) EKG Reviewed by me: Yes (Tele - currently paced in 70's) Hospitalist ROS - Medication Medications: Active Medications Generic Name Dose Route Start Last Admin Trade Name Freq PRN Reason Stop Dose Admin Amiodarone HCl 200 mg 01/29/20 21:00 01/30/20 20:10 Cordarone PO 200 mg HS ROMAN Administration Ascorbic Acid 1,000 mg 01/30/20 09:00 01/31/20 08:20 Vitamin C PO 1,000 mg DAILY ROMAN Administration Aspirin 81 mg 01/29/20 21:00 01/30/20 20:09 Aspirin Chewable PO 81 mg HS ROMAN Administration Carvedilol 12.5 mg 01/29/20 21:00 01/31/20 08:20 Coreg PO 12.5 mg BID ROMAN Administration Dexamethasone 8 mg 01/29/20 16:00 01/30/20 17:03 Decadron SLOW IVP 8 mg Q24HR ROMAN Administration Guaifenesin/Dextromethorphan 15 ml 01/29/20 02:16 01/31/20 05:16 Robitussin Dm PO 15 ml Q4H PRN Administration Cough Heparin Sodium (Porcine) 5,000 units 01/29/20 21:00 01/31/20 08:19 Heparin SC 5,000 units BID ROMAN Administration Azithromycin 500 mg/ Sodium 250 mls @ 250 mls/hr 01/29/20 16:00 01/30/20 17: 03 Chloride IVPB 250 mls Q24HR ROMAN Administration Iron/Minerals/Multivitamins 1 tab 01/30/20 09:00 01/31/20 08:20 Theragran M PO 1 tab DAILY ROMAN Administration Tamsulosin HCl 0.4 mg 01/29/20 21:00 01/30/20 20:11 Flomax PO 0.4 mg HS ROMAN Administration Zinc Sulfate 220 mg 01/30/20 09:00 01/31/20 08:20 Zinc Sulfate PO 220 mg DAILY ROMAN Administration - Exam General Appearance: ill appearing General - other findings: unresponsive, BVM in place, CPR in progress Eye - other findings: minimally reactive pupils ENT: no oropharyngeal lesions ENT - other findings: BVM in place Neck: supple, symmetric, no JVD, no thyromegaly Heart - other findings: no pulse palpated at carotid Respiratory - other findings: coarse sounds bilat, no spontaneous resp Gastrointestinal: soft, non-tender, normal bowel sounds, no palpable masses Extremities: no edema Extremities - other findings: peripheral cyanosis Skin: normal turgor Neurological - other findings: unresponsive Psychiatric: somnolent, lethargic Psychiatric - other findings: unresponsive Hosp A/P (1) Cardiac arrest Code(s): I46.9 - CARDIAC ARREST, CAUSE UNSPECIFIED Status: Acute Plan: Brief cardiac arrest with ROSC with CPR, 1 dose of Epinephrine, unclear etiology currently, serial troponins/BNP, check ECHO, consult Cardiology service , transfer to CCU (2) Acute respiratory failure with hypoxia Code(s): J96.01 - ACUTE RESPIRATORY FAILURE WITH HYPOXIA Status: Acute Plan: Emergent intubation in the room, start [facility] ventilation, consult Pulmonology/ Critical Care, PCXR now, ABG (3) Acute on chronic systolic (congestive) heart failure Code(s): I50.23 - ACUTE ON CHRONIC SYSTOLIC (CONGESTIVE) HEART FAILURE Status : Acute Plan: Initially volume managed with HD, likely progression despite HD in context of COVID-19 (4) COVID-19 Code(s): U07.1 - COVID-19 Status: Acute Plan: Likely causing worsening hypoxemia, see above, consider Remdesivir and Convalescent plasma, isolation protocol (5) Hyperkalemia Code(s): E87.5 - HYPERKALEMIA Status: Acute Plan: Resolving after HD (6) ESRD (end stage renal disease) on dialysis Code(s): N18.6 - END STAGE RENAL DISEASE; Z99.2 - DEPENDENCE ON RENAL DIALYSIS Status: Chronic Plan: s/p HD x 2 sessions this admit, continue to monitor volume status (7) Transaminitis Code(s): R74.0 - NONSPEC ELEV OF LEVELS OF TRANSAMNS & LACTIC ACID DEHYDRGNSE Status: Acute Plan: Suspect combination of volume overload/CHF and COVID, serial monitoring, consider RUQ sono - Plan continue antibiotics, respiratory therapy, DVT proph w/SCDs Transfer to CCU CPR/ACLS protocol ROSC with ACLS currently, continue mech ventilation PCXR pending ABG now Updated family of current situation Zithromax 500mg IV daily Dexamethasone 8mg IV daily Consider Remdesivir/Convalescent plasma Vitamin C/Zinc HD per Renal service Consult Pulmonology service AM lab: CMP, CBC, ABG PCXR daily Total critical care time: 45min
[2020-01-31 11:00] LABS: Actual Bicarbonate (HCO3a) 18.1 mEq/L (22-28); Base Excess (BEa) -8.4 mEq/L (-2.0 to +3.0); CO2 Tension 41.1 mmHg (35.0-45.0); Calcium, Ionized (arterial) 1.06 mmol/L (1.12-1.30); Carboxyhemoglobin (COHb) 0.5 gm% (0.0-3.0); Hemoglobin (Hb) 11.5 g/dL (14.0-18.0); Potassium - ABG Lab 4.68 mmol/L (3.70-5.30); pH, Arterial 7.26 (7.35-7.45)
[2020-01-31 11:07] LABS: ALV-art Gradient 603.925 (0-20); O2 Tension (PaO2), arterial 57.7 mmHg (> 70.0); Puncture Site RR
--- NOTE | 2020-01-31 11:11 | RAD ---
PORTABLE CHEST: Date: 01/31/2020 PROVIDED CLINICAL HISTORY: Respiratory insufficiency. FINDINGS: Comparison with 01/29/2020. The cardiac and mediastinal silhouette is unchanged in appearance. Left subclavian cardiac pacing dev ice and median sternotomy changes are again seen. Interval increase in bilateral air space disease, p rimarily within the mid to upper lung zones, right greater than left. Interval placement of enteric c atheter, tip of which overlies left upper abdomen. Interval placement of endotracheal tube, tip of wh ich projects slightly below the level of the thoracic inlet. There is no pleural fluid or pneumothora x evident. There is questioned subcutaneous emphysema at the base of the left neck. IMPRESSION: 1. Prominent interval worsening of bilateral air space disease. 2. Interval support apparatus as described. 3. Question subcutaneous emphysema at the base of the left neck. POS: MARIA E
[2020-01-31 11:22] LABS: HBCM Index 0.06 S/CO (0-0.79); HBSAg Index 0.17 S/CO (0-0.99); Hep A IgM AB Non-Reactive (NonReactive); Hep B Surf Ag Non-Reactive S/CO (NonReactive); Hep C IgG Ab Non-Reactive (NonReactive); Hep C Index 0.14 S/CO (0-0.79); Hepatitis B Core IgM Abs Non-Reactive (NonReactive)
[2020-01-31 12:14] LABS: #Lymphocytes 1.6 thou/uL (1.20-3.40); #Monocytes 0.5 thou/uL (0.11-0.59); #Neutrophils 9.1 thou/uL (1.40-6.50); %Basophils 0.2 % (0.0-1.0); %Eosinophils 0.3 % (0.0-10.0); %Lymphocytes 14.4 % (21.0-51.0); %Monocytes 4.4 % (0.0-10.0); %Neutrophils 80.8 % (42.0-75.0); Hemoglobin 11.3 g/dL (14.0-18.0); MDiff Complete? YES; Macrocytosis SLIGHT = 6-15 cells (100X) (0-5/hpf); Mean Corpuscular HGB CONC 32.6 g/dL (32.0-36.0); Mean Corpuscular Hemoglobin 34.2 pg (27.0-31.0); Mean Platelet Volume 10.2 fL (7.4-10.4); Ovalocytes SLIGHT = 2-5 cells (100X) (0-1/hpf); Platelet Count 121 thou/uL (130-400); Platelet Morphology Comment Appears Decreased; Polychromasia SLIGHT = 2-3 cells (100X) (0-2/hpf); Red Blood Cell (RBC) Count 3.31 mill/uL (4.70-6.10); Schistocytes SLIGHT = 2-5 cells (100X) (0-1/hpf); White Blood Cell (WBC) Count 11.2 thou/uL (4.8-10.8)
[2020-01-31] MEDS: Cefepime 1 GM in Sodium Chloride 0.9% 100 ML IVPB SCH (12:29)
[2020-01-31] MEDS: methylPREDNISolone Sod Succ 40 MG VIAL IVP SCH ×3 (12:30→22:25)
[2020-01-31] MEDS: Propofol 1,000 MG/100 ML VIAL IV PRN ×2 (12:31→16:43)
[2020-01-31 13:15] LABS: Troponin I 0.261 ng/mL (< 0.028)
[2020-01-31 13:17] LABS: Anion Gap 21 mmol/L (10-20); BUN (Urea Nitrogen) 56 mg/dL (8.4-25.7); Calc. Creatinine Clearance 14 mL/min (70-130); Calcium 8.2 mg/dL (7.8-10.44); Carbon Dioxide 21 mmol/L (23-31); Chloride 95 mmol/L (98-107); Estimated GFR-MDRD 13; Glucose 221 mg/dL (83-110); Sodium 132 mmol/L (136-145)
--- NOTE | 2020-01-31 13:30 | CON ---
DATE OF CONSULTATION: 01/31/2020 REASON FOR CONSULTATION: Intubated for respiratory failure. HISTORY OF PRESENT ILLNESS: The patient is a 79-year-old male, who was intubated in his room on earlier today after falling in the bathroom with shortness of breath. He was admitted to the hospital on 01/28 with COVID pneumonia, weakness, and shortness of breath. Dr. Salazar tells me that the patient was only on 2 L nasal cannula and had been doing reasonably well. He also has history of end-stage renal disease and requires dialysis. PAST MEDICAL HISTORY: 1. Coronary artery disease. 2. Ischemic cardiomyopathy. 3. End-stage renal disease. 4. Hypertension. 5. Ventricular tachycardia. 6. LATOYA, requiring CPAP at night. PAST SURGICAL HISTORY: 1. Pacemaker placement. 2. AICD placed. 3. Coronary artery bypass grafting surgery. 4. 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 5. Ventricular ablation for ventricular tachycardia. 6. Bilateral hernia repair. 7. Knee surgery on the right side. 8. Left shoulder surgery. 9. Cataract removal. 10. Parotid tumor section. SOCIAL HISTORY: Quit smoking in 2004. In July, he was drinking 1 to 2 glasses of wine per day. ALLERGIES: VANCOMYCIN. MEDICATIONS: Prior to admission; 1. Furosemide. 2. Carvedilol. 3. Atorvastatin. 4. Amiodarone. 5. Tamsulosin. 6. Aspirin. 7. Multivitamin. Current inpatient medications: 1. Amiodarone. 2. Ascorbic acid. 3. Aspirin. 4. Azithromycin. 5. Carvedilol. 6. Dexamethasone. 7. Glucagon. 8. Heparin. 9. Woden. 10. Insulin. 11. Tamsulosin. 12. Zinc. REVIEW OF SYSTEMS: Cannot be obtained as the patient is currently intubated. PHYSICAL EXAMINATION: VITAL SIGNS: Last temperature measured 98.6; pulse 70; respirations 20; blood pressure 126/64; and O2 saturations 97%, he is on 100% oxygen on mechanical ventilation. GENERAL: He is intubated, sedated and paralyzed. HEENT: Unremarkable. NECK: No JVD, but he does have crepitus along the left side of his neck. CARDIOVASCULAR: S1 and S2, paced. LUNGS: Inspiratory crackles bilaterally, predominantly on the right side. ABDOMEN: Soft and nontender to palpation. EXTREMITIES: No clubbing, cyanosis, or edema. IMAGING DATA: His chest x-ray shows diffuse bilateral infiltrates. Subcutaneous air present in the left supraclavicular area. Some cardiomegaly. LABORATORY DATA: ABG; pH of 7.26, pCO2 of 41, pO2 of 57, that is on SIMV rate of 20, tidal volume 500, PEEP 10, pressure support 10, and FiO2 of 100%. White blood cell count 4.8, hematocrit 32.7, and platelet count 97. Sodium 136, potassium 4.9, chloride 95, CO2 of 29, BUN 51, creatinine 4.2, and glucose 118. COVID test was positive. ASSESSMENT: 1. COVID-19 pneumonia with acute worsening of pneumonia. 2. Acute respiratory failure, requiring mechanical ventilation. 3. End-stage renal disease, requiring dialysis. 4. Multiple other medical problems as listed above. DISCUSSION: I think this is probably the natural evolution of COVID pneumonia, although I cannot rule out nosocomial infection given that he has been in the hospital for a couple of days. I think it would be reasonable to go ahead and extend his antibiotic coverage. I will increase his steroid coverage. We will probably try him on prone ventilation. I have adjusted his respiratory rate on mechanical ventilation. I am not sure who is seeing him from a Nephrology standpoint. Prognosis is poor. I will speak with family. Job ID: [id number]
[2020-01-31] MEDS ORDERED: PROPOFOL 200 MG/20 ML VIAL ONE (14:02)
[2020-01-31] MEDS ORDERED: Rocuronium Bromide 10 MG/ML (10ML VIAL) ONE (14:02)
[2020-01-31] MEDS ORDERED: EPINEPHrine 1 MG/10 ML Abboject SYRINGE ONE (14:02)
--- NOTE | 2020-01-31 15:55 | CON ---
DATE OF CONSULTATION: 01/31/2020 INDICATIONS FOR CONSULTATION: A 79-year-old gentleman with a history of coronary artery disease, underwent bypass surgery several years ago, who came to the hospital due to overall generalized weakness, shortness of breath, and was found to be COVID positive. He was on the telemetry floor when apparently this morning code radha was called. He had collapsed to the floor, unable to obtain a blood pressure. He does have a biventricular AICD. There was no evidence that there was any firing or any discharges from the AICD, and also on telemetry monitoring, there was no indication that the patient had any arrhythmias. He still was continued on the monitor. It appears that the patient just became significantly hypotensive or became hypoxic. His O2 saturations and pO2 were extremely low. His pO2 was 57.7 with a pCO2 of 41, his pH was 7.26, and O2 saturations 80.6%. After the code, he was intubated and now is in the intensive care unit. Since he is COVID positive, I am reviewing the records and will not do physical examination on the patient at this time. He still remains stable with a pacing at 70 beats per minute. Blood pressure is 144/69, his respiratory rate is 25 and he is breathing at 100%. He is also on 100% FiO2. Otherwise, with his history of coronary artery disease, he did undergo bypass surgery many years ago and has done relatively well from that. It is of note that during the time of the cardiac catheterization early operative stages, he developed livedo reticularis, which caused some lower extremity problems and also has had some renal insufficiency since that time. He has since developed end-stage renal disease. He has been maintained on hemodialysis. Also of note, when he came to the hospital, his potassium was 6.6. He has undergone hemodialysis since that time. The lowest potassium I see is 3.2. I did see the lower I believe on the blood gases, but otherwise remains relatively stable. Also of note, his liver function enzymes have increased significantly and continues to increase, the AST is now 561 with ALT of 671. His chest x-ray did show diffuse infiltrates, compatible most likely with his COVID disease. 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 He had an echocardiogram in the past, which shows somewhat decreased left ventricular systolic function. His last echocardiogram was in July of this year, which showed ejection fraction of 30% to 35% with global hypokinesis. He did have [id number] tricuspid valve regurgitation as well as mild aortic valve sclerosis, the left atrium was significantly dilated. He does have diastolic dysfunction with restrictive type pattern, which is indicative of rather significant diastolic heart failure. He also has a dilated left ventricle with mild left ventricular hypertrophy. At this time, he remains on the ventilator and appears to be relatively comfortable. PAST MEDICAL HISTORY: Noted above for: 1. Coronary artery disease. 2. Bypass surgery. 3. End-stage renal disease, on hemodialysis. 4. He has hyperlipidemia. 5. He has diastolic heart failure. PRESENT MEDICATIONS: Include: 1. Azithromycin. 2. Maxipime. 3. He is on fentanyl. 4. Methylprednisolone. 5. Dexamethasone. 6. He has been maintained on amiodarone. We will need to consider whether or not to continue this medicine or to hold it due to the possibility of possible amiodarone lung toxicity. 7. He is on vitamins. 8. Aspirin 81 mg a day. 9. Atorvastatin 40 mg, I have discontinued this medication in view of his liver problems at this time. 10. Coreg 12.5 mg b.i.d. 11. He is on Pepcid. 12. Heparin 5000 units b.i.d. 13. Multivitamins. 14. Flomax 0.4 mg q.p.m. 15. He takes other zinc sulfate. 16. He is on propofol drip. 17. Ativan. 18. Morphine. 19. Zofran. ALLERGIES: HE IS ALLERGIC TO VANCOMYCIN. FAMILY HISTORY: Noncontributory. REVIEW OF SYSTEMS: Please refer to the notes already dictated. PHYSICAL EXAMINATION: Will be deferred due to his COVID. His vital signs show a blood pressure at this time is noted 138/70, heart rate is in the 70s and is pacing, respiratory rate is 25, and he is afebrile. IMPRESSION: 1. Acute cardiac arrest, which may be due to electrolyte imbalance, hypoxemia, or significant hypotension. There were no arrhythmias noted. It does not appear that this was an arrhythmic event and otherwise may be due to either electrolyte imbalance or due to hypotension or hypoxemia. The most likely was a combination of all. At this time, he remains on the ventilator and is a full code. 2. COVID infection. Chest x-ray shows diffuse infiltrates, most likely compatible with his COVID disease. He will be monitored in the intensive care unit and treated with steroids and antibiotics as well as the ventilator support. 3. End-stage renal disease. He will continue with his dialysis. 4. Coronary artery disease, which appears to be stable at this time. We are more than happy to continue to follow the patient with you. My only concern is whether or not to hold his amiodarone at this time, which was for a history of atrial fibrillation in the past. 5. History of biventricular automatic implantable cardioverter-defibrillator placement with a decrease in left ventricular systolic function, which is felt to be nonischemic at this time. His EKG cannot determine whether or not he has any ischemia or not, but he is 100% pacing from the automatic implantable cardioverter-defibrillator with a lower rate of 70. At this time, I would agree with the present management of medications on the patient. We will be more than happy to continue to follow the patient with you. Job ID: [id number]
[2020-01-31 16:28] LABS: Troponin I 0.287 ng/mL (< 0.028)
[2020-01-31] MEDS: Azithromycin 500 MG in Sodium Chloride 0.9% 250 ML 250 ML IVPB SCH (16:39)
[2020-01-31] MEDS: Insulin Regular 300 UNITS/3 ML VIAL SC PRN (16:44)
[2020-01-31 18:47] LABS: Troponin I 0.347 ng/mL (< 0.028)
[2020-01-31] MEDS: Aspirin Chewable 81 MG TAB PO SCH (20:00)
[2020-01-31] MEDS: Amiodarone 200 MG TAB PO SCH (20:00)
[2020-02-01 03:49] LABS: ALT (SGPT) 547 U/L (8-55); AST (SGOT) 379 U/L (5-34); Alkaline Phosphatase 85 U/L (40-110); Anion Gap 19 mmol/L (10-20); BUN (Urea Nitrogen) 71 mg/dL (8.4-25.7); Bilirubin, Total 1.1 mg/dL (0.2-1.2); Calc. Creatinine Clearance 12 mL/min (70-130); Calcium 8.2 mg/dL (7.8-10.44); Carbon Dioxide 21 mmol/L (23-31); Chloride 98 mmol/L (98-107); Estimated GFR-MDRD 11; Globulin 2.5 g/dL (2.4-3.5); Glucose 127 mg/dL (83-110); Potassium 4.8 mmol/L (3.5-5.1); Protein, Total 5.5 g/dL (5.8-8.1); Sodium 133 mmol/L (136-145)
[2020-02-01] MEDS: Propofol 1,000 MG/100 ML VIAL IV PRN ×3 (03:58→18:10)
[2020-02-01 05:06] LABS: #Lymphocytes 0.4 thou/uL (1.20-3.40); #Monocytes 0.3 thou/uL (0.11-0.59); #Neutrophils 5.9 thou/uL (1.40-6.50); %Eosinophils 0.2 % (0.0-10.0); %Lymphocytes 5.8 % (21.0-51.0); %Monocytes 3.9 % (0.0-10.0); %Neutrophils 90.1 % (42.0-75.0); Hemoglobin 10.6 g/dL (14.0-18.0); Mean Corpuscular HGB CONC 34.1 g/dL (32.0-36.0); Mean Corpuscular Hemoglobin 34.3 pg (27.0-31.0); Mean Platelet Volume 9.8 fL (7.4-10.4); Platelet Count 95 thou/uL (130-400); RBC Distribution Width 12.7 % (11.5-14.5); Red Blood Cell (RBC) Count 3.09 mill/uL (4.70-6.10); White Blood Cell (WBC) Count 6.6 thou/uL (4.8-10.8)
[2020-02-01] MEDS: methylPREDNISolone Sod Succ 40 MG VIAL IVP SCH ×3 (06:12→18:10)
[2020-02-01 07:17] LABS: Actual Bicarbonate (HCO3a) 19.5 mEq/L (22-28); Base Excess (BEa) -2.1 mEq/L (-2.0 to +3.0); Calcium, Ionized (arterial) 1.03 mmol/L (1.12-1.30); O2 Tension (PaO2), arterial 105.7 mmHg (> 70.0); pH, Arterial 7.52 (7.35-7.45)
[2020-02-01 07:35] LABS: CO2 Tension 24.4 mmHg (35.0-45.0); Puncture Site RRAD
[2020-02-01] MEDS: Heparin 5,000 UNITS/ML VIAL SC SCH ×2 (09:08→20:14)
[2020-02-01] MEDS: Ascorbic Acid 500 mg Chewable Tablet PO SCH (09:09)
[2020-02-01] MEDS: Zinc Sulfate 220 MG CAP PO SCH (09:09)
[2020-02-01] MEDS: Famotidine/PF 20 mg/2ml Vial SLOW IVP SCH (09:09)
[2020-02-01] MEDS: Multivitamin W/ Minerals 1 TAB PO SCH (09:09)
[2020-02-01] MEDS: Carvedilol 6.25 MG TAB PO SCH ×2 (09:09→20:10)
--- NOTE | 2020-02-01 09:20 | PRG ---
DATE OF SERVICE: 02/01/2020 TIME SPENT: 35 minutes of critical care time. SUBJECTIVE: This patient remains intubated on mechanical ventilation with COVID-19 pneumonia. He will awake and follow commands. OBJECTIVE: VITAL SIGNS: On exam, temperature 97, pulse 70, blood pressure 119/64, and O2 saturation 100%. Total intake 1175, output 230. HEENT: Unremarkable. NECK: No JVD. LUNGS: Fairly clear anteriorly. CARDIOVASCULAR: S1 and S2. Paced. ABDOMEN: Soft. EXTREMITIES: No edema. LABORATORY DATA: Sodium 133, potassium 4.8, chloride 98, CO2 of 21, BUN 75, creatinine 5.0, and glucose 127. Troponin 0.34. PH of 7.52, pCO2 of 24, pO2 of 105 on SIMV rate 25, tidal volume 500, PEEP 10, pressure support 10, and FiO2 of 60%. White blood cell count 6.6, hematocrit 31, and platelet count 95. ASSESSMENT: 1. COVID-19 pneumonia. 2. Acute respiratory failure, requiring mechanical ventilation with bilateral infiltrates on x-ray. 3. End-stage renal disease, requiring hemodialysis. 4. Multiple other medical problems including cardiomyopathy with EF of about 10%. PLAN: If the patient's x-ray appearance is due to cardiomyopathy and fluid overload, he may have a chance. However, I feel we are most likely dealing with COVID-19 pneumonia and he will gradually worsen. I have put him on high-dose corticosteroids. He continues on anticoagulation with heparin. He will receive periodic dialysis. I have put him on empiric antibiotics to cover any secondary infections. We have adjusted his mechanical ventilation rate for the respiratory alkalosis present on today's blood gas. I do not anticipate him being extubated over the weekend. Job ID: [id number]
--- NOTE | 2020-02-01 10:10 | RAD ---
Pc: HISTORY: Followup of pneumonia. FINDINGS: Heart size is enlarged with postop sternotomy changes. Endotracheal and NG Tubes are in satisfactory position. Bilateral patchy pneumonia changes more confluent in the right mid and upper lung zones a re similar to the most recent prior exam. IMPRESSION: Relatively stable chest. POS: OFF
[2020-02-01] MEDS: Cefepime 1 GM in Sodium Chloride 0.9% 100 ML IVPB SCH (13:40)
--- NOTE | 2020-02-01 15:44 | PDOC.HOSPP ---
- Subjective Encounter Date: 02/01/20 Encounter Time: 15:45 Subjective: f/u for COVID-19 PNA, resp failure on mech vent and cardiac arrest with ROSC. Remains on mech vent with FIO2 60% receiving Zithromax/Cefepime/Solumedrol/Vit C /Zinc. - Objective Vital Signs & Weight: Vital Signs (12 hours) Temp Pulse Resp BP Pulse Ox 02/01/20 15:00 98.7 F 02/01/20 14:08 70 02/01/20 14:00 22 H 02/01/20 13:00 98.8 F 02/01/20 12:00 21 H 02/01/20 11:22 70 02/01/20 10:00 22 H 02/01/20 09:09 116/62 02/01/20 08:00 97.7 F 19 95 02/01/20 07:40 70 02/01/20 06:00 25 H 02/01/20 04:00 97.0 F L 25 H Weight Admit Weight 163 lb 11.2 oz Weight 161 lb 13.109 oz Most Recent Monitor Data Heart Rate from ECG 70 NIBP 138/72 NIBP BP-Mean 94 Respiration from ECG 24 SpO2 95 I&O: 01/31/20 02/01/20 02/02/20 06:59 06:59 06:59 Intake Total 1540 1676 100 Output Total 2500 230 190 Balance -960 1446 -90 Result Diagrams: 02/01/20 03:15 02/01/20 03:15 Additional Labs: Accuchecks 02/01/20 02/01/20 01/31/20 12:48 06:25 20:19 POC Glucose 111 H 128 H 135 H 01/31/20 16:56 POC Glucose 168 H Laboratory Tests 12/01/16 12/01/16 12/01/16 09:33 09:33 09:33 Plt Count 109 L Sodium 129 L Potassium 2.3 L* Creatinine 6.05 H Phosphorus 4.7 Magnesium 2.7 H AST ALT Troponin I B-Natriuretic Peptide Hepatitis A IgM Ab Hep Bs Antigen Hep B Core IgM Ab Hepatitis C Antibody SARS-CoV-2 Rap RNA(RT-PCR) 12/03/16 07/31/19 01/29/20 09:57 11:26 00:01 Plt Count Sodium Potassium Creatinine Phosphorus Magnesium AST ALT Troponin I B-Natriuretic Peptide 8075.5 H 2819.1 H Hepatitis A IgM Ab Hep Bs Antigen Non-Reactive Hep B Core IgM Ab Hepatitis C Antibody SARS-CoV-2 Rap RNA(RT-PCR) 01/29/20 01/29/20 01/29/20 00:06 00:06 00:06 Plt Count Sodium Potassium 6.6 H* Creatinine 6.77 H Phosphorus Magnesium AST 206 H ALT 229 H Troponin I 0.073 H B-Natriuretic Peptide 4805.4 H Hepatitis A IgM Ab Hep Bs Antigen Hep B Core IgM Ab Hepatitis C Antibody SARS-CoV-2 Rap RNA(RT-PCR) 01/29/20 01/29/20 01/29/20 00:30 02:40 02:40 Plt Count Sodium Potassium 5.4 H Creatinine Phosphorus Magnesium AST 211 H ALT 233 H Troponin I 0.081 H B-Natriuretic Peptide Hepatitis A IgM Ab Hep Bs Antigen Hep B Core IgM Ab Hepatitis C Antibody SARS-CoV-2 Rap RNA(RT-PCR) DETECTED A* 01/29/20 01/31/20 01/31/20 06:03 04:31 10:25 Plt Count Sodium Potassium Creatinine Phosphorus Magnesium AST 561 H ALT 671 H Troponin I 0.086 H B-Natriuretic Peptide Hepatitis A IgM Ab Non-Reactive Hep Bs Antigen Non-Reactive Hep B Core IgM Ab Non-Reactive Hepatitis C Antibody Non-Reactive SARS-CoV-2 Rap RNA(RT-PCR) 01/31/20 01/31/20 01/31/20 12:42 15:37 18:12 Plt Count Sodium Potassium Creatinine Phosphorus Magnesium AST ALT Troponin I 0.261 H 0.287 H 0.347 H* B-Natriuretic Peptide Hepatitis A IgM Ab Hep Bs Antigen Hep B Core IgM Ab Hepatitis C Antibody SARS-CoV-2 Rap RNA(RT-PCR) 02/01/20 03:15 Plt Count Sodium Potassium Creatinine Phosphorus Magnesium AST 379 H ALT 547 H Troponin I B-Natriuretic Peptide Hepatitis A IgM Ab Hep Bs Antigen Hep B Core IgM Ab Hepatitis C Antibody SARS-CoV-2 Rap RNA(RT-PCR) Radiology Reviewed by me: Yes (PCXR - bilat infiltrates, lines/tubes in place) EKG Reviewed by me: Yes (Tele - paced in 70's) Hospitalist ROS - Medication Medications: Active Medications Generic Name Dose Route Start Last Admin Trade Name Freq PRN Reason Stop Dose Admin Amiodarone HCl 200 mg 01/29/20 21:00 01/31/20 20:00 Cordarone PO 200 mg HS ROMAN Administration Ascorbic Acid 1,000 mg 01/30/20 09:00 02/01/20 09:09 Vitamin C PO 1,000 mg DAILY ROMAN Administration Aspirin 81 mg 01/29/20 21:00 01/31/20 20:00 Aspirin Chewable PO 81 mg HS ROMAN Administration Carvedilol 12.5 mg 01/29/20 21:00 02/01/20 09:09 Coreg PO 12.5 mg BID ROMAN Administration Famotidine 20 mg 02/01/20 09:00 02/01/20 09:09 Pepcid SLOW IVP 20 mg DAILY ROMAN Administration Guaifenesin/Dextromethorphan 15 ml 01/29/20 02:16 01/31/20 05:16 Robitussin Dm PO 15 ml Q4H PRN Administration Cough Heparin Sodium (Porcine) 5,000 units 01/29/20 21:00 02/01/20 09:08 Heparin SC 5,000 units BID ROMAN Administration Azithromycin 500 mg/ Sodium 250 mls @ 250 mls/hr 01/29/20 16:00 01/31/20 16: 39 Chloride IVPB 250 mls Q24HR ROMAN Administration Cefepime HCl 1 gm/ Sodium 100 mls @ 200 mls/hr 01/31/20 12:00 02/01/20 13:40 Chloride IVPB 100 mls Q24HR ROMAN Administration Insulin Human Regular 0 units 01/29/20 03:58 01/31/20 16:44 Humulin R SC 2 unit .MILD SLIDING SCALE PRN Administration Mild Correctional Scale Iron/Minerals/Multivitamins 1 tab 01/30/20 09:00 02/01/20 09:09 Theragran M PO 1 tab DAILY ROMAN Administration Methylprednisolone Sodium Succinate 60 mg 01/31/20 12:00 02/01/20 13:44 Solu-Medrol IVP 60 mg Q6HR ROMAN Administration Propofol 1,000 mg 01/31/20 10:45 02/01/20 12:38 Diprivan IV 03/01/20 10:45 1,000 mg INF PRN Administration TO ACHIEVE GOAL RASS Protocol Tamsulosin HCl 0.4 mg 01/29/20 21:00 01/30/20 20:11 Flomax PO 0.4 mg HS ROMAN Administration Zinc Sulfate 220 mg 01/30/20 09:00 02/01/20 09:09 Zinc Sulfate PO 220 mg DAILY ROMAN Administration - Exam General - other findings: sedate on mech ventilation Eye: anicteric sclera ENT: normocephalic atraumatic, no oropharyngeal lesions ENT - other findings: ETT/OGT in place Neck: supple, symmetric, no JVD, no thyromegaly Heart: RRR, no gallops, no rubs, normal peripheral pulses Heart - other findings: S1, S2 Respiratory: tachypneic Respiratory - other findings: diminished bilat in bases, occ rhonchi Gastrointestinal: soft, non-tender, non-distended, normal bowel sounds, no palpable masses Extremities: no cyanosis, no clubbing, no edema Skin: normal turgor Neurological - other findings: sedate on mech ventilation Psychiatric: somnolent, lethargic Hosp A/P (1) Cardiac arrest Code(s): I46.9 - CARDIAC ARREST, CAUSE UNSPECIFIED Status: Acute Plan: s/p arrest with ROSC, likely multifactorial process, EF 10% by Echo (2) Acute respiratory failure with hypoxia Code(s): J96.01 - ACUTE RESPIRATORY FAILURE WITH HYPOXIA Status: Acute Plan: continue mech ventilation, SIMV with FIO2 43% (3) Acute on chronic systolic (congestive) heart failure Code(s): I50.23 - ACUTE ON CHRONIC SYSTOLIC (CONGESTIVE) HEART FAILURE Status : Acute (4) COVID-19 Code(s): U07.1 - COVID-19 Status: Acute Plan: Continue Zithromax/Solumedrol/Cefepime/Vit C/Zinc (5) Hyperkalemia Code(s): E87.5 - HYPERKALEMIA Status: Acute Plan: Resolved, serial monitoring (6) ESRD (end stage renal disease) on dialysis Code(s): N18.6 - END STAGE RENAL DISEASE; Z99.2 - DEPENDENCE ON RENAL DIALYSIS Status: Chronic Plan: HD per Renal service (7) Transaminitis Code(s): R74.0 - NONSPEC ELEV OF LEVELS OF TRANSAMNS & LACTIC ACID DEHYDRGNSE Status: Acute (8) Ischemic cardiomyopathy Code(s): I25.5 - ISCHEMIC CARDIOMYOPATHY Status: Chronic Plan: EF 10% by echo, medical mgmt currently - Plan continue antibiotics, social service agency director, respiratory therapy, DVT proph w/heparin , DVT proph w/SCDs Continue critical support Zithromax/Cefepime IV Solumedrol 60mg IV q6h Consider Remdesivir/Convalescent plasma Vitamin C/Zinc HD per Renal service AM lab: CMP, CBC, ABG PCXR daily
[2020-02-01] MEDS: Azithromycin 500 MG in Sodium Chloride 0.9% 250 ML 250 ML IVPB SCH (16:15)
[2020-02-01] MEDS: Amiodarone 200 MG TAB PO SCH (20:13)
[2020-02-01] MEDS: Tamsulosin HCl 0.4 MG CAP PO SCH (20:13)
[2020-02-01] MEDS: Aspirin Chewable 81 MG TAB PO SCH (20:13)
[2020-02-02] MEDS: methylPREDNISolone Sod Succ 40 MG VIAL IVP SCH ×5 (00:24→23:51)
[2020-02-02 04:21] LABS: #Lymphocytes 0.2 thou/uL (1.20-3.40); #Monocytes 0.3 thou/uL (0.11-0.59); #Neutrophils 5.8 thou/uL (1.40-6.50); %Eosinophils 0.2 % (0.0-10.0); %Lymphocytes 3.8 % (21.0-51.0); %Monocytes 4.3 % (0.0-10.0); %Neutrophils 91.8 % (42.0-75.0); Anion Gap 19 mmol/L (10-20); Calcium 8.2 mg/dL (7.8-10.44); Carbon Dioxide 22 mmol/L (23-31); Chloride 98 mmol/L (98-107); Glucose 160 mg/dL (83-110); Hemoglobin 10.1 g/dL (14.0-18.0); Mean Corpuscular HGB CONC 34.4 g/dL (32.0-36.0); Mean Corpuscular Hemoglobin 34.6 pg (27.0-31.0); Mean Platelet Volume 10.1 fL (7.4-10.4); Platelet Count 97 thou/uL (130-400); Potassium 4.5 mmol/L (3.5-5.1); RBC Distribution Width 12.9 % (11.5-14.5); Red Blood Cell (RBC) Count 2.92 mill/uL (4.70-6.10); Sodium 134 mmol/L (136-145); White Blood Cell (WBC) Count 6.3 thou/uL (4.8-10.8)
[2020-02-02] MEDS: Propofol 1,000 MG/100 ML VIAL IV PRN ×3 (04:49→21:18)
[2020-02-02 05:14] LABS: Calc. Creatinine Clearance 15 mL/min (70-130); Estimated GFR-MDRD 14
[2020-02-02 05:15] LABS: BUN (Urea Nitrogen) 65 mg/dL (8.4-25.7)
[2020-02-02] MEDS: Insulin Regular 300 UNITS/3 ML VIAL SC PRN ×2 (05:21→18:12)
[2020-02-02 07:17] LABS: Actual Bicarbonate (HCO3a) 22.6 mEq/L (22-28); Base Excess (BEa) -0.6 mEq/L (-2.0 to +3.0); CO2 Tension 32.4 mmHg (35.0-45.0); Calcium, Ionized (arterial) 1.06 mmol/L (1.12-1.30); Carboxyhemoglobin (COHb) 0.3 gm% (0.0-3.0); Hemoglobin (Hb) 10.8 g/dL (14.0-18.0); O2 Tension (PaO2), arterial 82.8 mmHg (> 70.0); Potassium - ABG Lab 4.05 mmol/L (3.70-5.30); pH, Arterial 7.46 (7.35-7.45)
[2020-02-02 07:45] LABS: Puncture Site RRAD
[2020-02-02] MEDS: Carvedilol 6.25 MG TAB PO SCH ×2 (08:42→20:42)
[2020-02-02] MEDS: Ascorbic Acid 500 mg Chewable Tablet PO SCH (08:42)
[2020-02-02] MEDS: Heparin 5,000 UNITS/ML VIAL SC SCH ×2 (08:43→20:43)
[2020-02-02] MEDS: Multivitamin W/ Minerals 1 TAB PO SCH (08:43)
[2020-02-02] MEDS: Famotidine/PF 20 mg/2ml Vial SLOW IVP SCH (08:43)
[2020-02-02] MEDS: Zinc Sulfate 220 MG CAP PO SCH (08:44)
--- NOTE | 2020-02-02 08:48 | PDOC.HOSPP ---
- Subjective Encounter Date: 02/02/20 Encounter Time: 07:00 Subjective: no overnight events. this morning, awake, alert, following commands, requesting to remove restraints. - Objective Vital Signs & Weight: Vital Signs (12 hours) Temp Pulse Resp 02/02/20 07:51 70 02/02/20 06:00 17 02/02/20 04:00 97.0 F L 16 02/02/20 02:00 16 02/02/20 00:00 96.9 F L 17 02/01/20 22:00 18 Weight Admit Weight 163 lb 11.2 oz Weight 161 lb 9.581 oz Most Recent Monitor Data Heart Rate from ECG 70 NIBP 134/68 NIBP BP-Mean 90 Respiration from ECG 22 SpO2 95 I&O: 02/01/20 02/02/20 02/03/20 06:59 06:59 06:59 Intake Total 1676 928 Output Total 230 500 Balance 1446 428 Result Diagrams: 02/02/20 03:20 02/02/20 03:20 Additional Labs: Accuchecks 02/02/20 02/01/20 02/01/20 05:02 20:47 16:47 POC Glucose 167 H 114 H 114 H 02/01/20 12:48 POC Glucose 111 H Hospitalist ROS - Review of Systems ROS unobtainable: due to endotracheal tube - Medication Medications: Active Medications Generic Name Dose Route Start Last Admin Trade Name Freq PRN Reason Stop Dose Admin Amiodarone HCl 200 mg 01/29/20 21:00 02/01/20 20:13 Cordarone PO 200 mg HS ROMAN Administration Ascorbic Acid 1,000 mg 01/30/20 09:00 02/01/20 09:09 Vitamin C PO 1,000 mg DAILY ROMAN Administration Aspirin 81 mg 01/29/20 21:00 02/01/20 20:13 Aspirin Chewable PO 81 mg HS ROMAN Administration Carvedilol 12.5 mg 01/29/20 21:00 02/01/20 20:10 Coreg PO 12.5 mg BID ROMAN Administration Famotidine 20 mg 02/01/20 09:00 02/01/20 09:09 Pepcid SLOW IVP 20 mg DAILY ROMAN Administration Guaifenesin/Dextromethorphan 15 ml 01/29/20 02:16 01/31/20 05:16 Robitussin Dm PO 15 ml Q4H PRN Administration Cough Heparin Sodium (Porcine) 5,000 units 01/29/20 21:00 02/01/20 20:14 Heparin SC 5,000 units BID ROMAN Administration Azithromycin 500 mg/ Sodium 250 mls @ 250 mls/hr 01/29/20 16:00 02/01/20 16: 15 Chloride IVPB 250 mls Q24HR ROMAN Administration Cefepime HCl 1 gm/ Sodium 100 mls @ 200 mls/hr 01/31/20 12:00 02/01/20 13:40 Chloride IVPB 100 mls Q24HR ROMAN Administration Insulin Human Regular 0 units 01/29/20 03:58 02/02/20 05:21 Humulin R SC 2 unit .MILD SLIDING SCALE PRN Administration Mild Correctional Scale Iron/Minerals/Multivitamins 1 tab 01/30/20 09:00 02/01/20 09:09 Theragran M PO 1 tab DAILY ROMAN Administration Methylprednisolone Sodium Succinate 60 mg 01/31/20 12:00 02/02/20 05:19 Solu-Medrol IVP 60 mg Q6HR ROMAN Administration Propofol 1,000 mg 01/31/20 10:45 02/02/20 04:49 Diprivan IV 03/01/20 10:45 1,000 mg INF PRN Administration TO ACHIEVE GOAL RASS Protocol Sodium Chloride 10 ml 02/01/20 21:00 02/01/20 20:14 Flush - Normal Saline IVF 10 ml Q12HR ROMAN Administration Tamsulosin HCl 0.4 mg 01/29/20 21:00 02/01/20 20:13 Flomax PO 0.4 mg HS ROMAN Administration Zinc Sulfate 220 mg 01/30/20 09:00 02/01/20 09:09 Zinc Sulfate PO 220 mg DAILY ROMAN Administration - Exam General Appearance: NAD, awake alert General - other findings: intubated, 20mcg/kg propofol Eye: PERRL, anicteric sclera ENT: moist mucosa Heart: RRR, no murmur, no gallops, no rubs, normal peripheral pulses Heart - other findings: Biv paced rhythm Respiratory - other findings: reduced breath sounds throughout with minimal rhonchi and wheezing Gastrointestinal: soft, non-tender, non-distended, normal bowel sounds Gastrointestinal - other findings: reducible umbilical hernia Extremities: no edema Psychiatric - other findings: alert, following commands Hosp A/P - Plan (1) Cardiac arrest Code(s): I46.9 - CARDIAC ARREST, CAUSE UNSPECIFIED Status: Acute Plan: s/p arrest with ROSC, likely multifactorial process, EF 10% by Echo (2) Acute respiratory failure with hypoxia Code(s): J96.01 - ACUTE RESPIRATORY FAILURE WITH HYPOXIA Status: Acute Plan: continue mech ventilation, SIMV with FIO2 43% (3) Acute on chronic systolic (congestive) heart failure Code(s): I50.23 - ACUTE ON CHRONIC SYSTOLIC (CONGESTIVE) HEART FAILURE Status : Acute (4) COVID-19 Code(s): U07.1 - COVID-19 Status: Acute Plan: Continue Zithromax/Solumedrol/Cefepime/Vit C/Zinc (5) Hyperkalemia Code(s): E87.5 - HYPERKALEMIA Status: Acute Plan: Resolved, serial monitoring (6) ESRD (end stage renal disease) on dialysis Code(s): N18.6 - END STAGE RENAL DISEASE; Z99.2 - DEPENDENCE ON RENAL DIALYSIS Status: Chronic Plan: HD per Renal service (7) Transaminitis Code(s): R74.0 - NONSPEC ELEV OF LEVELS OF TRANSAMNS & LACTIC ACID DEHYDRGNSE Status: Acute (8) Ischemic cardiomyopathy Code(s): I25.5 - ISCHEMIC CARDIOMYOPATHY Status: Chronic Plan: EF 10% by echo, medical mgmt currently - Plan Acute respiratory alkalosis; ventilation, Remdesivir/Convalescent plasma as per PCCM HD daily as per nephrology Solumedrol 60mg IV q6h Vitamin C/Zinc Full code Attempted to call multiple times in order to provide update (350-4pm) but no answer. will reattempt tomorrow
--- NOTE | 2020-02-02 10:35 | RAD ---
PORTABLE CHEST: Date: 02/02/2020 HISTORY: Pneumonia follow-up. COMPARISON: 02/01/2020. FINDINGS: Diffuse bilateral alveolar infiltrates are seen. Findings are more confluent and dense in the right m id and upper lung. ET tube and NG tube unchanged. IMPRESSION: No significant change from yesterday. POS: AGW
--- NOTE | 2020-02-02 11:34 | PRG ---
DATE OF SERVICE: 02/02/2020 SUBJECTIVE: Macario Venegas remains intubated in the vent, sedated. OBJECTIVE: VITAL SIGNS: Pulse 70 I's and O's have been consistently positive. CHEST: Decreased breath sounds. No wheezing. CARDIAC: Normal S1 and S2. No gallops. ABDOMEN: No masses. LABORATORY DATA: pO2 is 82, platelet count is low 97. His creatinine is 4 and BUN 65. DIAGNOSTIC DATA: X-ray looks like fluid overload. ASSESSMENT: 1. Respiratory failure, multifactorial. 2. Congestive heart failure. Ejection fraction is 10%. 3. Renal failure, being dialyzed daily. 4. Murphy positive pneumonia. PLAN: He is still not weanable at this stage, though his x-ray clearly is relatively stable. He is on Zithromax, Maxipime, and steroids high dose. Hopefully, once his x-ray status improves, we can start gradually weaning him off the vent. We are going to start nutrition today. One-half hour of critical time. Job ID: [id number]
--- NOTE | 2020-02-02 11:51 | EKG ---
Test Reason : Blood Pressure : / mmHG Vent. Rate : 070 BPM Atrial Rate : 070 BPM P-R Int : 112 ms QRS Dur : 208 ms QT Int : 522 ms P-R-T Axes : 000 -10 142 degrees QTc Int : 563 ms AV sequential or dual chamber electronic pacemaker Confirmed by NAIMA SCOTT ([id number]), metropolitan editor GEE GODINEZ ([id number]) on 02/02/2020 11:51:14 AM Referred By: Confirmed By:NAIMA SCOTT
[2020-02-02] MEDS: Cefepime 1 GM in Sodium Chloride 0.9% 100 ML IVPB SCH (12:18)
--- NOTE | 2020-02-02 14:16 | PDOC.CPN ---
- Subjective Date: 02/02/20 Time: 14:14 Interval history: Remains sedated and intubated. - Review of Systems ROS unobtainable: due to endotracheal tube - Objective Allergies/Adverse Reactions: Allergies Allergy/AdvReac Type Severity Reaction Status Date / Time vancomycin Allergy Verified 08/27/19 01:18 Visit Medications: Current Medications Acetaminophen (Tylenol) 650 mg PO Q4H PRN PRN Reason: Headache/Fever/Mild Pain (1-3) Acetaminophen (Tylenol) 650 mg SC Q4H PRN PRN Reason: Headache/Fever/Mild Pain (1-3) Amiodarone HCl (Cordarone) 200 mg PO HS [facility] Last Admin: 02/01/20 20:13 Dose: 200 mg Ascorbic Acid (Vitamin C) 1,000 mg PO DAILY [facility] Last Admin: 02/02/20 08:42 Dose: 1,000 mg Aspirin (Aspirin Chewable) 81 mg PO HS [facility] Last Admin: 02/01/20 20:13 Dose: 81 mg Calcium Carbonate (Tums) 1,000 mg PO Q4H PRN PRN Reason: Heartburn or Indigestion Carvedilol (Coreg) 12.5 mg PO BID [facility] Last Admin: 02/02/20 08:42 Dose: 12.5 mg Dextrose/Water (Dextrose 50%) 25 gm SLOW IVP PRN PRN PRN Reason: Hypoglycemia Famotidine (Pepcid) 20 mg SLOW IVP DAILY [facility] Last Admin: 02/02/20 08:43 Dose: 20 mg Glucagon (Glucagon) 1 mg IM PRN PRN PRN Reason: Hypoglycemia Guaifenesin (Organ-I Nr) 200 mg PO Q4H PRN PRN Reason: Congestion Guaifenesin/Dextromethorphan (Robitussin Dm) 15 ml PO Q4H PRN PRN Reason: Cough Last Admin: 01/31/20 05:16 Dose: 15 ml Heparin Sodium (Porcine) (Heparin) 5,000 units SC BID [facility] Last Admin: 02/02/20 08:43 Dose: 5,000 units Dextrose/Water (D5w) 1,000 mls @ 0 mls/hr IV .Q0M PRN PRN Reason: Hypoglycemia Azithromycin 500 mg/ Sodium (Chloride) 250 mls @ 250 mls/hr IVPB Q24HR [facility] Last Admin: 02/01/20 16:15 Dose: 250 mls Fentanyl Citrate 2,000 mcg/ (Sodium Chloride) 100 mls @ 0 mls/hr IV INF [facility]; Protocol Stop: 03/01/20 10:45 Fentanyl Citrate (Fentanyl Bolus) 250 mls @ 0 mls/hr IVPB PRN PRN PRN Reason: Breakthrough pain/agitation Stop: 03/01/20 10:45 Cefepime HCl 1 gm/ Sodium (Chloride) 100 mls @ 200 mls/hr IVPB Q24HR [facility] Last Admin: 02/02/20 12:18 Dose: 100 mls Insulin Human Regular (Humulin R) 0 units SC .MILD SLIDING SCALE PRN PRN Reason: Mild Correctional Scale Last Admin: 02/02/20 05:21 Dose: 2 unit Iron/Minerals/Multivitamins (Theragran M) 1 tab PO DAILY [facility] Last Admin: 02/02/20 08:43 Dose: 1 tab Lorazepam (Ativan) 2 mg SLOW IVP Q1H PRN PRN Reason: Breakthrough agitation Stop: 03/01/20 10:45 Methylprednisolone Sodium Succinate (Solu-Medrol) 60 mg IVP Q6HR [facility] Last Admin: 02/02/20 12:19 Dose: 60 mg Morphine Sulfate (Morphine) 2 mg SLOW IVP Q1H PRN PRN Reason: Breakthrough Pain/Agitation Stop: 03/01/20 10:45 Ondansetron HCl (Zofran Odt) 4 mg PO Q6H PRN PRN Reason: Nausea/Vomiting Ondansetron HCl (Zofran) 4 mg IVP Q6H PRN PRN Reason: Nausea/Vomiting Propofol (Diprivan) 1,000 mg IV INF PRN; Protocol PRN Reason: TO ACHIEVE GOAL RASS Stop: 03/01/20 10:45 Last Admin: 02/02/20 12:20 Dose: 1,000 mg Propofol (Diprivan Bolus) 20 mg IV Q5MIN PRN PRN Reason: BREAKTHROUGH AGITATION Stop: 03/01/20 10:45 Sodium Chloride (Flush - Normal Saline) 10 ml IVF Q12HR [facility] Last Admin: 02/02/20 08:44 Dose: 10 ml Sodium Chloride (Flush - Normal Saline) 10 ml IVF PRN PRN PRN Reason: Saline Flush Tamsulosin HCl (Flomax) 0.4 mg PO HS [facility] Last Admin: 02/01/20 20:13 Dose: 0.4 mg Zinc Sulfate (Zinc Sulfate) 220 mg PO DAILY [facility] Last Admin: 02/02/20 08:44 Dose: 220 mg Vital Signs & Weight: Vital Signs Temp Pulse Resp BP Pulse Ox 02/02/20 12:00 97.1 F L 16 02/02/20 10:55 70 02/02/20 10:00 17 02/02/20 08:42 127/82 02/02/20 08:00 97.1 F L 17 98 02/02/20 07:51 70 02/02/20 06:00 17 02/02/20 04:00 97.0 F L 16 Admit Weight 163 lb 11.2 oz Weight 161 lb 9.581 oz - Physical Exam General: other (Not done due to active COVID-19 infection.) - Labs Result Diagrams: 02/02/20 03:20 02/02/20 03:20 Troponin/CKMB CK-MB (CK-2) 1.5 ng/mL (0-6.6) 01/29/20 00:06 Troponin I 0.347 ng/mL (< 0.028) H* 01/31/20 18:12 - Telemetry Sinus rhythms and dysrhythmias: sinus rhythm - Assessment/Plan Assessment/Plan: 1. Acute on chronic systolic heart failure 2. Dilated CMY EF at 10-15% 3. COVID-19 pneumonia 4. ESRD on HD 5. BiV AICD in place. 6. Paroxysmal afib PLAN: - Continue HD for fluid management, - Likely multifactorial respiratory insufficiency from both pneumonia and CHF. - Continue amiodarone as he has a history of VT. - Poor predatory animal exterminator prognosis.
[2020-02-02] MEDS: Azithromycin 500 MG in Sodium Chloride 0.9% 250 ML 250 ML IVPB SCH (17:10)
[2020-02-02] MEDS: Amiodarone 200 MG TAB PO SCH (20:42)
[2020-02-02] MEDS: Aspirin Chewable 81 MG TAB PO SCH (20:42)
[2020-02-02] MEDS: Tamsulosin HCl 0.4 MG CAP PO SCH (20:43)
[2020-02-03] MEDS: Propofol 1,000 MG/100 ML VIAL IV PRN ×2 (04:18→11:10)
[2020-02-03] MEDS: methylPREDNISolone Sod Succ 40 MG VIAL IVP SCH ×4 (04:18→23:37)
[2020-02-03 04:19] LABS: Anion Gap 15 mmol/L (10-20); BUN (Urea Nitrogen) 57 mg/dL (8.4-25.7); Calc. Creatinine Clearance 20 mL/min (70-130); Calcium 8.2 mg/dL (7.8-10.44); Carbon Dioxide 26 mmol/L (23-31); Chloride 98 mmol/L (98-107); Estimated GFR-MDRD 19; Glucose 176 mg/dL (83-110); Potassium 3.8 mmol/L (3.5-5.1); Sodium 135 mmol/L (136-145)
[2020-02-03 04:30] LABS: #Lymphocytes 0.2 thou/uL (1.20-3.40); #Monocytes 0.2 thou/uL (0.11-0.59); #Neutrophils 6.4 thou/uL (1.40-6.50); %Eosinophils 0.1 % (0.0-10.0); %Lymphocytes 2.2 % (21.0-51.0); %Monocytes 3.5 % (0.0-10.0); %Neutrophils 94.3 % (42.0-75.0); Hemoglobin 10.4 g/dL (14.0-18.0); Mean Corpuscular HGB CONC 33.9 g/dL (32.0-36.0); Mean Corpuscular Hemoglobin 34.3 pg (27.0-31.0); Mean Platelet Volume 9.4 fL (7.4-10.4); Platelet Count 102 thou/uL (130-400); RBC Distribution Width 12.7 % (11.5-14.5); Red Blood Cell (RBC) Count 3.02 mill/uL (4.70-6.10); White Blood Cell (WBC) Count 6.8 thou/uL (4.8-10.8)
[2020-02-03] MEDS: Insulin Regular 300 UNITS/3 ML VIAL SC PRN ×4 (06:31→21:57)
[2020-02-03 07:09] LABS: Actual Bicarbonate (HCO3a) 24.6 mEq/L (22-28); Base Excess (BEa) 1.1 mEq/L (-2.0 to +3.0); CO2 Tension 34.6 mmHg (35.0-45.0); Calcium, Ionized (arterial) 1.06 mmol/L (1.12-1.30); Hemoglobin (Hb) 10.2 g/dL (14.0-18.0); O2 Tension (PaO2), arterial 67.3 mmHg (> 70.0); Potassium - ABG Lab 3.79 mmol/L (3.70-5.30); pH, Arterial 7.47 (7.35-7.45)
[2020-02-03 07:36] LABS: Puncture Site RBRACH
[2020-02-03] MEDS: Ascorbic Acid 500 mg Chewable Tablet PO SCH (07:57)
[2020-02-03] MEDS: Multivitamin W/ Minerals 1 TAB PO SCH (07:57)
[2020-02-03] MEDS: Carvedilol 6.25 MG TAB PO SCH ×2 (07:58→20:00)
[2020-02-03] MEDS: Heparin 5,000 UNITS/ML VIAL SC SCH ×2 (07:58→20:00)
[2020-02-03] MEDS: Zinc Sulfate 220 MG CAP PO SCH (07:58)
[2020-02-03] MEDS: Famotidine/PF 20 mg/2ml Vial SLOW IVP SCH (07:59)
--- NOTE | 2020-02-03 10:26 | PRG ---
DATE OF SERVICE: 02/03/2020 SUBJECTIVE: This morning, he is doing better. X-ray shows bilateral interstitial process that much improved. OBJECTIVE: VITAL SIGNS: Blood pressure 121/62, sats 99% on a rate of 10, 40% and PEEP of 10. His maximum temperature has been 98. CHEST: No wheezing. No crackles. CARDIAC: Normal S1 and S2. No masses. LABORATORY DATA: White count 6000, hemoglobin and hematocrit of 10 and 30, platelet count of 102. PO2 of 67, pCO2 of 34, pH of 7.47. Creatinine 3.6, BUN is 57. IMPRESSION: 1. Renal failure. 2. Congestive heart failure. 3. Murphy positive pneumonia. 4. Cardiomyopathy. Vent is being adjusted. He is still continuing Zithromax, Maxipime, high-dose steroids, diuretics. He is day #4 on the vent. Continue nutrition and PT. One-half hour of critical care time. Job ID: [id number]
[2020-02-03] MEDS: Cefepime 1 GM in Sodium Chloride 0.9% 100 ML IVPB SCH (11:05)
--- NOTE | 2020-02-03 11:23 | RAD ---
PORTABLE CHEST: HISTORY: Pneumonia. COMPARISON: 02/02/20 FINDINGS: Bilateral interstitial and hazy alveolar infiltrates are again noted. ET tube and NG tube remain in p lace. AICD leads unchanged. IMPRESSION: No evidence of significant interval change. POS: AGW
--- NOTE | 2020-02-03 11:27 | PDOC.BPN ---
- Brief Progress Note No overnight events. Did not encounter patient to avoid unnecessary exposure. CXR diffuse bilateral opacities. Per PCCM, not weanable yet. Called family and updated regarding current problems and plan.
--- NOTE | 2020-02-03 15:55 | PDOC.CPN ---
- Subjective Date: 02/03/20 Time: 11:00 Interval history: No new issues. - Objective Allergies/Adverse Reactions: Allergies Allergy/AdvReac Type Severity Reaction Status Date / Time vancomycin Allergy Verified 08/27/19 01:18 Visit Medications: Current Medications Acetaminophen (Tylenol) 650 mg PO Q4H PRN PRN Reason: Headache/Fever/Mild Pain (1-3) Acetaminophen (Tylenol) 650 mg CO Q4H PRN PRN Reason: Headache/Fever/Mild Pain (1-3) Amiodarone HCl (Cordarone) [address] [facility] Last Admin: 02/02/20 20:42 Dose: 200 mg Ascorbic Acid (Vitamin C) 1,000 mg PO DAILY [facility] Last Admin: 02/03/20 07:57 Dose: 1,000 mg Aspirin (Aspirin Chewable) [address] [facility] Last Admin: 02/02/20 20:42 Dose: 81 mg Atorvastatin Calcium (Lipitor) [address] [facility] Calcium Carbonate (Tums) 1,000 mg PO Q4H PRN PRN Reason: Heartburn or Indigestion Carvedilol (Coreg) 12.5 mg PO BID [facility] Last Admin: 02/03/20 07:58 Dose: 12.5 mg Dextrose/Water (Dextrose 50%) 25 gm SLOW IVP PRN PRN PRN Reason: Hypoglycemia Famotidine (Pepcid) 20 mg SLOW IVP DAILY [facility] Last Admin: 02/03/20 07:59 Dose: 20 mg Glucagon (Glucagon) 1 mg IM PRN PRN PRN Reason: Hypoglycemia Guaifenesin (Organ-I Nr) 200 mg PO Q4H PRN PRN Reason: Congestion Guaifenesin/Dextromethorphan (Robitussin Dm) 15 ml PO Q4H PRN PRN Reason: Cough Last Admin: 01/31/20 05:16 Dose: 15 ml Heparin Sodium (Porcine) (Heparin) 5,000 units SC BID [facility] Last Admin: 02/03/20 07:58 Dose: 5,000 units Dextrose/Water (D5w) 1,000 mls @ 0 mls/hr IV .Q0M PRN PRN Reason: Hypoglycemia Azithromycin 500 mg/ Sodium (Chloride) 250 mls @ 250 mls/hr IVPB Q24HR [facility] Last Admin: 02/02/20 17:10 Dose: 250 mls Fentanyl Citrate 2,000 mcg/ (Sodium Chloride) 100 mls @ 0 mls/hr IV INF [facility]; Protocol Stop: 03/01/20 10:45 Fentanyl Citrate (Fentanyl Bolus) 250 mls @ 0 mls/hr IVPB PRN PRN PRN Reason: Breakthrough pain/agitation Stop: 03/01/20 10:45 Cefepime HCl 1 gm/ Sodium (Chloride) 100 mls @ 200 mls/hr IVPB Q24HR [facility] Last Admin: 02/03/20 11:05 Dose: 100 mls Insulin Human Regular (Humulin R) 0 units SC .MILD SLIDING SCALE PRN PRN Reason: Mild Correctional Scale Last Admin: 02/03/20 11:31 Dose: 3 unit Iron/Minerals/Multivitamins (Theragran M) 1 tab PO DAILY [facility] Last Admin: 02/03/20 07:57 Dose: 1 tab Lorazepam (Ativan) 2 mg SLOW IVP Q1H PRN PRN Reason: Breakthrough agitation Stop: 03/01/20 10:45 Methylprednisolone Sodium Succinate (Solu-Medrol) 60 mg IVP Q6HR [facility] Last Admin: 02/03/20 11:05 Dose: 60 mg Morphine Sulfate (Morphine) 2 mg SLOW IVP Q1H PRN PRN Reason: Breakthrough Pain/Agitation Stop: 03/01/20 10:45 Ondansetron HCl (Zofran Odt) 4 mg PO Q6H PRN PRN Reason: Nausea/Vomiting Ondansetron HCl (Zofran) 4 mg IVP Q6H PRN PRN Reason: Nausea/Vomiting Propofol (Diprivan) 1,000 mg IV INF PRN; Protocol PRN Reason: TO ACHIEVE GOAL RASS Stop: 03/01/20 10:45 Last Admin: 02/03/20 11:10 Dose: 1,000 mg Propofol (Diprivan Bolus) 20 mg IV Q5MIN PRN PRN Reason: BREAKTHROUGH AGITATION Stop: 03/01/20 10:45 Sodium Chloride (Flush - Normal Saline) 10 ml IVF Q12HR [facility] Last Admin: 02/03/20 07:58 Dose: 10 ml Sodium Chloride (Flush - Normal Saline) 10 ml IVF PRN PRN PRN Reason: Saline Flush Tamsulosin HCl (Flomax) 0.4 mg PO HS [facility] Last Admin: 02/02/20 20:43 Dose: 0.4 mg Zinc Sulfate (Zinc Sulfate) 220 mg PO DAILY [facility] Last Admin: 02/03/20 07:58 Dose: 220 mg Vital Signs & Weight: Vital Signs Temp Pulse Resp BP Pulse Ox 02/03/20 14:56 70 02/03/20 14:00 23 H 02/03/20 12:00 96.4 F L 18 02/03/20 10:40 70 02/03/20 10:00 20 02/03/20 08:00 98.5 F 15 93 L 02/03/20 07:58 123/56 L 02/03/20 07:39 69 02/03/20 06:00 18 02/03/20 04:00 97.5 F L 18 Admit Weight 163 lb 11.2 oz Weight 2.621 oz - Labs Result Diagrams: 02/03/20 03:45 02/03/20 03:45 Troponin/CKMB CK-MB (CK-2) 1.5 ng/mL (0-6.6) 01/29/20 00:06 Troponin I 0.347 ng/mL (< 0.028) H* 01/31/20 18:12 - Assessment/Plan Assessment/Plan: 1. Acute on chronic systolic heart failure 2. Dilated CMY EF at 10-15% 3. COVID-19 pneumonia 4. ESRD on HD 5. BiV AICD in place. 6. Paroxysmal afib PLAN: - Continue HD for fluid management, - Multifactorial respiratory insufficiency from both pneumonia and CHF. - Continue amiodarone. - Supportive care.
[2020-02-03] MEDS: Azithromycin 500 MG in Sodium Chloride 0.9% 250 ML 250 ML IVPB SCH (16:16)
[2020-02-03] MEDS: Aspirin Chewable 81 MG TAB PO SCH (20:00)
[2020-02-03] MEDS: Tamsulosin HCl 0.4 MG CAP PO SCH (20:00)
[2020-02-03] MEDS: Amiodarone 200 MG TAB PO SCH (20:00)
[2020-02-04] MEDS: Propofol 1,000 MG/100 ML VIAL IV PRN ×3 (02:24→20:39)
[2020-02-04 04:35] LABS: #Lymphocytes 0.2 thou/uL (1.20-3.40); #Monocytes 0.3 thou/uL (0.11-0.59); %Eosinophils 0.1 % (0.0-10.0); %Lymphocytes 3.3 % (21.0-51.0); %Monocytes 3.9 % (0.0-10.0); %Neutrophils 92.7 % (42.0-75.0); Hemoglobin 10.5 g/dL (14.0-18.0); Mean Corpuscular HGB CONC 34.4 g/dL (32.0-36.0); Mean Corpuscular Hemoglobin 34.6 pg (27.0-31.0); Mean Platelet Volume 9.5 fL (7.4-10.4); Platelet Count 111 thou/uL (130-400); RBC Distribution Width 12.8 % (11.5-14.5); Red Blood Cell (RBC) Count 3.03 mill/uL (4.70-6.10); White Blood Cell (WBC) Count 6.5 thou/uL (4.8-10.8)
[2020-02-04 04:54] LABS: Anion Gap 15 mmol/L (10-20); BUN (Urea Nitrogen) 60 mg/dL (8.4-25.7); Calc. Creatinine Clearance 0 mL/min (70-130); Calcium 7.9 mg/dL (7.8-10.44); Carbon Dioxide 27 mmol/L (23-31); Chloride 99 mmol/L (98-107); Estimated GFR-MDRD 21; Glucose 239 mg/dL (83-110); Potassium 4.2 mmol/L (3.5-5.1); Sodium 137 mmol/L (136-145)
[2020-02-04] MEDS: methylPREDNISolone Sod Succ 40 MG VIAL IVP SCH ×3 (05:03→16:39)
[2020-02-04] MEDS: Insulin Regular 300 UNITS/3 ML VIAL SC PRN ×4 (05:15→20:46)
[2020-02-04 07:16] LABS: Actual Bicarbonate (HCO3a) 27.7 mEq/L (22-28); Base Excess (BEa) 3.9 mEq/L (-2.0 to +3.0); CO2 Tension 38.7 mmHg (35.0-45.0); Calcium, Ionized (arterial) 1.07 mmol/L (1.12-1.30); Carboxyhemoglobin (COHb) 0.1 gm% (0.0-3.0); Potassium - ABG Lab 4.19 mmol/L (3.70-5.30); pH, Arterial 7.47 (7.35-7.45)
[2020-02-04 07:18] LABS: O2 Tension (PaO2), arterial 54.3 mmHg (> 70.0); Puncture Site RRA
[2020-02-04 07:19] LABS: ALV-art Gradient 182.525 (0-20)
--- NOTE | 2020-02-04 08:40 | PRG ---
DATE OF SERVICE: 02/04/2020 35-minutes critical care time. SUBJECTIVE: This patient remains intubated on mechanical ventilation, receiving hemodialysis. There have been no acute changes overnight. OBJECTIVE: VITAL SIGNS: His temperature is 97.8 with no recorded fever, pulse 70, and blood pressure 125/61. Total intake was 1847 and output 60 plus 2350 removed by dialysis. HEENT: Unremarkable. NECK: No adenopathy, JVD. CHEST: Fairly clear anteriorly. CARDIOVASCULAR: S1 and S2, paced. ABDOMEN: Soft and nontender. EXTREMITIES: No clubbing, cyanosis, or edema. LABORATORY DATA: ABG; pH 7.47, pCO2 of 38, pO2 of 54 on SIMV rate 6, tidal volume 500, PEEP 7, pressure support 10, and FiO2 of 40%. Sodium 137, potassium 4.2, chloride 99, CO2 of 27, BUN 60, creatinine 2.9, and glucose 239. White blood cell count 6.5, hematocrit 30.5, and platelet count 111. His x-ray continues to show the alveolar type infiltrates, typical of COVID-19 infection. ASSESSMENT: 1. Acute respiratory failure requiring mechanical ventilation. 2. Cardiomyopathy with ejection fraction of about 10%. 3. COVID-19 pneumonia, which is probably slowly worsening. 4. Acute on chronic renal failure. PLAN: 1. He is not weanable at this time. I think that we can go ahead and stop the azithromycin, but continue the cefepime. 2. May need to consider stopping the amiodarone given possible lung disease. 3. Continue methylprednisolone high doses. 4. Prognosis for recovery is very poor given all his comorbidities. Job ID: [id number]
--- NOTE | 2020-02-04 08:49 | PDOC.CPN ---
- Subjective Date: 02/04/20 Time: 08:30 Interval history: The pt seen and examined. No overnight events. On Vent with sedation; having HD today - Objective Allergies/Adverse Reactions: Allergies Allergy/AdvReac Type Severity Reaction Status Date / Time vancomycin Allergy Verified 08/27/19 01:18 Visit Medications: Current Medications Acetaminophen (Tylenol) 650 mg PO Q4H PRN PRN Reason: Headache/Fever/Mild Pain (1-3) Acetaminophen (Tylenol) 650 mg MD Q4H PRN PRN Reason: Headache/Fever/Mild Pain (1-3) Amiodarone HCl (Cordarone) 200 mg PO [facility] Last Admin: 02/03/20 20:00 Dose: 200 mg Ascorbic Acid (Vitamin C) 1,000 mg PO DAILY [facility] Last Admin: 02/03/20 07:57 Dose: 1,000 mg Aspirin (Aspirin Chewable) 81 mg PO HS [facility] Last Admin: 02/03/20 20:00 Dose: 81 mg Atorvastatin Calcium (Lipitor) 40 mg PO [facility] Calcium Carbonate (Tums) 1,000 mg PO Q4H PRN PRN Reason: Heartburn or Indigestion Carvedilol (Coreg) 12.5 mg PO BID [facility] Last Admin: 02/03/20 20:00 Dose: 12.5 mg Dextrose/Water (Dextrose 50%) 25 gm SLOW IVP PRN PRN PRN Reason: Hypoglycemia Famotidine (Pepcid) 20 mg SLOW IVP DAILY [facility] Last Admin: 02/03/20 07:59 Dose: 20 mg Glucagon (Glucagon) 1 mg IM PRN PRN PRN Reason: Hypoglycemia Guaifenesin (Organ-I Nr) 200 mg PO Q4H PRN PRN Reason: Congestion Guaifenesin/Dextromethorphan (Robitussin Dm) 15 ml PO Q4H PRN PRN Reason: Cough Last Admin: 01/31/20 05:16 Dose: 15 ml Heparin Sodium (Porcine) (Heparin) 5,000 units SC BID [facility] Last Admin: 02/03/20 20:00 Dose: 5,000 units Dextrose/Water (D5w) 1,000 mls @ 0 mls/hr IV .Q0M PRN PRN Reason: Hypoglycemia Fentanyl Citrate 2,000 mcg/ (Sodium Chloride) 100 mls @ 0 mls/hr IV INF [facility]; Protocol Stop: 03/01/20 10:45 Fentanyl Citrate (Fentanyl Bolus) 250 mls @ 0 mls/hr IVPB PRN PRN PRN Reason: Breakthrough pain/agitation Stop: 03/01/20 10:45 Cefepime HCl 1 gm/ Sodium (Chloride) 100 mls @ 200 mls/hr IVPB Q24HR [facility] Last Admin: 02/03/20 11:05 Dose: 100 mls Insulin Human Regular (Humulin R) 0 units SC .MILD SLIDING SCALE PRN PRN Reason: Mild Correctional Scale Last Admin: 02/04/20 05:15 Dose: 4 unit Iron/Minerals/Multivitamins (Theragran M) 1 tab PO DAILY [facility] Last Admin: 02/03/20 07:57 Dose: 1 tab Lorazepam (Ativan) 2 mg SLOW IVP Q1H PRN PRN Reason: Breakthrough agitation Stop: 03/01/20 10:45 Methylprednisolone Sodium Succinate (Solu-Medrol) 60 mg IVP Q6HR [facility] Last Admin: 02/04/20 05:03 Dose: 60 mg Morphine Sulfate (Morphine) 2 mg SLOW IVP Q1H PRN PRN Reason: Breakthrough Pain/Agitation Stop: 03/01/20 10:45 Ondansetron HCl (Zofran Odt) 4 mg PO Q6H PRN PRN Reason: Nausea/Vomiting Ondansetron HCl (Zofran) 4 mg IVP Q6H PRN PRN Reason: Nausea/Vomiting Propofol (Diprivan) 1,000 mg IV INF PRN; Protocol PRN Reason: TO ACHIEVE GOAL RASS Stop: 03/01/20 10:45 Last Admin: 02/04/20 02:24 Dose: 1,000 mg Propofol (Diprivan Bolus) 20 mg IV Q5MIN PRN PRN Reason: BREAKTHROUGH AGITATION Stop: 03/01/20 10:45 Sodium Chloride (Flush - Normal Saline) 10 ml IVF Q12HR [facility] Last Admin: 02/03/20 20:01 Dose: 10 ml Sodium Chloride (Flush - Normal Saline) 10 ml IVF PRN PRN PRN Reason: Saline Flush Tamsulosin HCl (Flomax) 0.4 mg PO HS [facility] Last Admin: 02/03/20 20:00 Dose: 0.4 mg Zinc Sulfate (Zinc Sulfate) 220 mg PO DAILY [facility] Last Admin: 02/03/20 07:58 Dose: 220 mg Vital Signs & Weight: Vital Signs Temp Pulse Resp BP 02/04/20 08:23 70 02/04/20 06:00 17 02/04/20 04:00 97.8 F 17 02/04/20 02:38 70 114/54 L 02/04/20 02:00 17 02/04/20 00:52 70 111/46 L 02/04/20 00:00 97.7 F 18 02/03/20 22:40 70 110/55 L 02/03/20 22:00 17 Admit Weight 163 lb 11.2 oz Weight 156 lb 8.451 oz - Labs Result Diagrams: 02/04/20 04:00 02/04/20 04:00 Troponin/CKMB CK-MB (CK-2) 1.5 ng/mL (0-6.6) 01/29/20 00:06 Troponin I 0.347 ng/mL (< 0.028) H* 01/31/20 18:12 - Telemetry Sinus rhythms and dysrhythmias: other (AV paced) - Assessment/Plan Assessment/Plan: 1. Acute on chronic systolic HR - on HD today; on Coreg 2. 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 COVID-19 pneumonia 4. CAD with hx of CABG in 2004 - cath in 06/2019 showed normal 5. hx of VT with s/p VT RFA x2 in 07/2019 - BiV AICD in place; on Amiodarone 6. Paroxysmal afib/Aflutter with hx of several RFA - on Coreg, Amiodarone, and ASA only due to chronic Anemia and hx of falls 7. ESRD with HD - managed by Dr Jo 8. Chronic Anemia - stable MAR reviewed * Echo on 01/31/2020 with EF 10-15% (35-40% in 02/2019), grade III dd, severe LAE , mild-mod MR, and mild TR and MD pt. seen and eval. by me. i agree with the A/P by the NETWORK ANNOUNCER. Prognosis is poor. Seen by palliative therapy. will d/c [email or web address].[email or web address]
[2020-02-04] MEDS: Carvedilol 6.25 MG TAB PO SCH ×2 (09:04→20:39)
[2020-02-04] MEDS: Zinc Sulfate 220 MG CAP PO SCH (09:05)
[2020-02-04] MEDS: Ascorbic Acid 500 mg Chewable Tablet PO SCH (09:05)
[2020-02-04] MEDS: Heparin 5,000 UNITS/ML VIAL SC SCH ×2 (09:05→20:39)
[2020-02-04] MEDS: Multivitamin W/ Minerals 1 TAB PO SCH (09:05)
[2020-02-04] MEDS: Famotidine/PF 20 mg/2ml Vial SLOW IVP SCH (09:05)
--- NOTE | 2020-02-04 09:27 | RAD ---
PORTABLE CHEST: HISTORY: Followup pneumonia. FINDINGS: Heart size is enlarged. Postop sternotomy changes are seen. Endotracheal and NG tubes are satisfact ory position. The parenchymal lung changes are not improved as compared to the prior examination. S ome of the changes in the right mid lung field appear slightly accentuated. This is probably just on the basis of technique. IMPRESSION: Essentially stable chest. POS: OFF
[2020-02-04] MEDS: Cefepime 1 GM in Sodium Chloride 0.9% 100 ML IVPB SCH (11:18)
--- NOTE | 2020-02-04 14:11 | PDOC.PALCO ---
Palliative Care Consult - Consult Details Requesting Physician: Dr Duran Reason for Consult: family support - Pertinent HPI Mr Venegas is a 79 year old male who resides in a independent home setting, on hemodialysis. Reported to have onset of weakness that was significant and as he was going to climb stairs he was unable and fell. Presented to [facility] emergency room for evaluation of Covid. In emergency he was found to be Covid +, with pulmonary edema, hyperkalemia. Denied fever, chills, diarrhea, headache, throat irritation or change in smell or taste. He was admitted for medical management of fluid overload related to CHF, end stage renal disease on hemodialysis. During course of stay required intubation, with worsening Covid, cardiomyopathy with ejection fraction of 10% ( was reported to be 35% in Jul 2019) and continued need for hemodialysis. - Pertinent PMH Renal failure requiring hemodialysis, CAD, HTN, HDL, Ischemic cardiomyopathy - Social History Smoking Status: Former smoker Smoking: quit greater than 1 year Alcohol Use: none, daily Drug Use History: none Living Situation: - Medications MAR Reviewed: Yes - Allergies Allergies/Adverse Reactions: Allergies Allergy/AdvReac Type Severity Reaction Status Date / Time vancomycin Allergy Verified 08/27/19 01:18 - Subjective Intubated with mechanical ventilation, fentanyl for sedation - ROS Non Response: due to endotracheal tube, due to mental status - Objective Vital Signs: Vital Signs - Most Recent Temp Pulse Resp BP Pulse Ox 98.6 F 71 16 114/54 L 95 02/04/20 07:00 02/04/20 11:02 02/04/20 12:00 02/04/20 09:04 02/04/20 08:00 Palliative Performance Scale: 30 - Physical Exam Constitutional: encephalitic, ill appearing HEENT: moist MMs Deviation from normal: mechanical ventilation Cardiovascular: RRR Genitourinary: luna catheter Musculoskeletal: pulses present Neurology: no focal deficits Skin: cap refill <2 seconds, fragile Deviation from normal: sedated - Problem List (1) Palliative care encounter Code(s): Z51.5 - ENCOUNTER FOR PALLIATIVE CARE Current Visit: Yes Status: Acute (2) Acute on chronic systolic (congestive) heart failure Code(s): I50.23 - ACUTE ON CHRONIC SYSTOLIC (CONGESTIVE) HEART FAILURE Current Visit: Yes Status: Acute (3) COVID-19 Code(s): U07.1 - COVID-19 Current Visit: Yes Status: Acute (4) ESRD (end stage renal disease) Code(s): N18.6 - END STAGE RENAL DISEASE Current Visit: No Status: Acute (5) Cardiomyopathy Code(s): I42.9 - CARDIOMYOPATHY, UNSPECIFIED Current Visit: No Status: Chronic - Plan/Recommendations Plan: Attempting to coordinate family bringing up pictures and placement of speaker in room. Palliative Care will assist to connect family so that they can "talk" to Mr Venegas. Spoke at length with patient son Sean who will serve as "hub" for family support. Plan is to have family send "audio" messages for Mr Venegas and Palliative Care will play via the blue tooth speaker as well as coordinate calls for family to do "live time communication" with him. Confirmed family pictures are in room. Will do a life review to gain knowledge of "who" Mr Leong is and what is important to him. Emotional support and Therapeutic listening for family support. Spiritual Care consult placed for further support for family. Sean Leong [phone] (patient son) [55] minutes spent on this encounter with >50% of the time in counseling and coordination of care. Thank you for this very appropriate consult.
[2020-02-04] MEDS: Atorvastatin Calcium 40 MG TAB PO SCH (20:39)
[2020-02-04] MEDS: Aspirin Chewable 81 MG TAB PO SCH (20:40)
[2020-02-04] MEDS: Tamsulosin HCl 0.4 MG CAP PO SCH (20:40)
--- NOTE | 2020-02-04 20:56 | PDOC.HOSPP ---
- Subjective Encounter Date: 02/04/20 Encounter Time: 07:00 Subjective: no overnight events. this morning, sedated and intubated. Per PCCM not weanable at this time. - Objective Vital Signs & Weight: Vital Signs (12 hours) Temp Pulse Resp BP 02/04/20 20:39 125/62 02/04/20 20:00 17 02/04/20 19:00 97.7 F 02/04/20 18:39 70 02/04/20 18:00 17 02/04/20 16:00 18 02/04/20 14:09 70 02/04/20 14:00 16 02/04/20 12:00 16 02/04/20 11:02 71 02/04/20 10:00 18 02/04/20 09:04 114/54 L Weight Admit Weight 163 lb 11.2 oz Weight 156 lb 8.451 oz Most Recent Monitor Data Heart Rate from ECG 72 NIBP 124/63 NIBP BP-Mean 83 Respiration from ECG 17 SpO2 93 I&O: 02/03/20 02/04/20 02/05/20 06:59 06:59 06:59 Intake Total 1749.2 1847 743 Output Total 125 60 45 Balance 1624.2 1787 838 Result Diagrams: 02/04/20 04:00 02/04/20 04:00 Additional Labs: Accuchecks 02/04/20 02/04/20 02/04/20 16:01 11:31 10:37 POC Glucose 201 H 156 H 112 H 02/04/20 02/03/20 05:15 21:57 POC Glucose 252 H 200 H Hospitalist ROS - Review of Systems ROS unobtainable: due to endotracheal tube - Medication Medications: Active Medications Generic Name Dose Route Start Last Admin Trade Name Freq PRN Reason Stop Dose Admin Ascorbic Acid 1,000 mg 01/30/20 09:00 02/04/20 09:05 Vitamin C PO 1,000 mg DAILY ROMAN Administration Aspirin 81 mg 01/29/20 21:00 02/04/20 20:40 Aspirin Chewable PO 81 mg HS ROMAN Administration Atorvastatin Calcium 40 mg 02/04/20 21:00 02/04/20 20:39 Lipitor PO 40 mg HS ROMAN Administration Carvedilol 12.5 mg 01/29/20 21:00 02/04/20 20:39 Coreg PO 12.5 mg BID ROMAN Administration Famotidine 20 mg 02/01/20 09:00 02/04/20 09:05 Pepcid SLOW IVP 20 mg DAILY ROMAN Administration Guaifenesin/Dextromethorphan 15 ml 01/29/20 02:16 01/31/20 05:16 Robitussin Dm PO 15 ml Q4H PRN Administration Cough Heparin Sodium (Porcine) 5,000 units 01/29/20 21:00 02/04/20 20:39 Heparin SC 5,000 units BID ROMAN Administration Cefepime HCl 1 gm/ Sodium 100 mls @ 200 mls/hr 01/31/20 12:00 02/04/20 11:18 Chloride IVPB 100 mls Q24HR ROMAN Administration Insulin Human Regular 0 units 01/29/20 03:58 02/04/20 20:46 Humulin R SC 3 unit .MILD SLIDING SCALE PRN Administration Mild Correctional Scale Iron/Minerals/Multivitamins 1 tab 01/30/20 09:00 02/04/20 09:05 Theragran M PO 1 tab DAILY ROMAN Administration Methylprednisolone Sodium Succinate 60 mg 01/31/20 12:00 02/04/20 16:39 Solu-Medrol IVP 60 mg Q6HR ROMAN Administration Propofol 1,000 mg 01/31/20 10:45 02/04/20 20:39 Diprivan IV 03/01/20 10:45 1,000 mg INF PRN Administration TO ACHIEVE GOAL RASS Protocol Sodium Chloride 10 ml 02/01/20 21:00 02/04/20 09:06 Flush - Normal Saline IVF 10 ml Q12HR ROMAN Administration Tamsulosin HCl 0.4 mg 01/29/20 21:00 02/04/20 20:40 Flomax PO 0.4 mg HS ROMAN Administration Zinc Sulfate 220 mg 01/30/20 09:00 02/04/20 09:05 Zinc Sulfate PO 220 mg DAILY ROMAN Administration - Exam General Appearance: NAD, awake alert Neck: no JVD Heart: RRR, no murmur, no gallops, no rubs Heart - other findings: Biv paced on telemetry Respiratory: CTAB, no wheezes, no rales, no ronchi Gastrointestinal: soft, non-tender, non-distended, normal bowel sounds Hosp A/P - Plan (1) Cardiac arrest Code(s): I46.9 - CARDIAC ARREST, CAUSE UNSPECIFIED Status: Acute Plan: s/p arrest with ROSC, likely multifactorial process, EF 10% by Echo (2) Acute respiratory failure with hypoxia Code(s): J96.01 - ACUTE RESPIRATORY FAILURE WITH HYPOXIA Status: Acute Plan: not weanable at this time; ventilation as per PCCM (3) Acute on chronic systolic (congestive) heart failure Code(s): I50.23 - ACUTE ON CHRONIC SYSTOLIC (CONGESTIVE) HEART FAILURE Status : Acute (4) COVID-19 Code(s): U07.1 - COVID-19 Status: Acute Plan: Continue cefepime as per PCCM (5) Hyperkalemia Code(s): E87.5 - HYPERKALEMIA Status: Acute Plan: Resolved, serial monitoring (6) ESRD (end stage renal disease) on dialysis Code(s): N18.6 - END STAGE RENAL DISEASE; Z99.2 - DEPENDENCE ON RENAL DIALYSIS Status: Chronic Plan: HD per Renal service (7) Transaminitis Code(s): R74.0 - NONSPEC ELEV OF LEVELS OF TRANSAMNS & LACTIC ACID DEHYDRGNSE Status: Acute (8) Ischemic cardiomyopathy Code(s): I25.5 - ISCHEMIC CARDIOMYOPATHY Status: Chronic Plan: EF 10% by echo, medical mgmt currently - Plan not weanable, continue cefepime and solumedrol per PCCM, continue HD per [facility] poor prognosis; palliative care team onboard Full code
[2020-02-04] MEDS: Pantoprazole 40 MG VIAL IVP SCH (22:52)
[2020-02-05] MEDS: methylPREDNISolone Sod Succ 40 MG VIAL IVP SCH ×4 (00:45→17:20)
[2020-02-05 04:32] LABS: Anion Gap 16 mmol/L (10-20); BUN (Urea Nitrogen) 68 mg/dL (8.4-25.7); Calc. Creatinine Clearance 21 mL/min (70-130); Carbon Dioxide 27 mmol/L (23-31); Chloride 97 mmol/L (98-107); Estimated GFR-MDRD 21; Potassium 4.1 mmol/L (3.5-5.1); Sodium 136 mmol/L (136-145)
[2020-02-05 04:33] LABS: Glucose 236 mg/dL (83-110)
[2020-02-05 04:37] LABS: #Lymphocytes 0.3 thou/uL (1.20-3.40); #Monocytes 0.3 thou/uL (0.11-0.59); #Neutrophils 7.5 thou/uL (1.40-6.50); %Eosinophils 0.1 % (0.0-10.0); %Lymphocytes 3.7 % (21.0-51.0); %Monocytes 4.1 % (0.0-10.0); %Neutrophils 92.1 % (42.0-75.0); Hemoglobin 10.6 g/dL (14.0-18.0); Mean Corpuscular HGB CONC 33.6 g/dL (32.0-36.0); Mean Corpuscular Hemoglobin 33.4 pg (27.0-31.0); Mean Corpuscular Volume 99.3 fL (78.0-98.0); Mean Platelet Volume 9.7 fL (7.4-10.4); Platelet Count 116 thou/uL (130-400); RBC Distribution Width 12.9 % (11.5-14.5); Red Blood Cell (RBC) Count 3.17 mill/uL (4.70-6.10); White Blood Cell (WBC) Count 8.1 thou/uL (4.8-10.8)
[2020-02-05] MEDS: Insulin Regular 300 UNITS/3 ML VIAL SC PRN ×3 (06:40→21:00)
[2020-02-05 07:34] LABS: Base Excess (BEa) 3.3 mEq/L (-2.0 to +3.0); CO2 Tension 37.9 mmHg (35.0-45.0); Calcium, Ionized (arterial) 1.06 mmol/L (1.12-1.30); Carboxyhemoglobin (COHb) 0.2 gm% (0.0-3.0); Hemoglobin (Hb) 11.6 g/dL (14.0-18.0); O2 Tension (PaO2), arterial 74.7 mmHg (> 70.0); Potassium - ABG Lab 3.88 mmol/L (3.70-5.30); pH, Arterial 7.47 (7.35-7.45)
[2020-02-05 07:38] LABS: ALV-art Gradient 234.425 (0-20); Puncture Site LRA
--- NOTE | 2020-02-05 08:03 | PRG ---
DATE OF SERVICE: 02/05/2020 SUBJECTIVE: The patient remains intubated on mechanical ventilation. He is about to start another session of dialysis. OBJECTIVE: VITAL SIGNS: His temperature is 97.9 with no reported fever overnight, pulse 70, blood pressure 128/61, O2 saturation general in the mid 90s on 50% oxygen via mechanical ventilation. He is on a propofol drip. He is on no vasopressors. NEUROLOGIC: He is awake. He will follow commands. HEENT: Unremarkable. NECK: No adenopathy or JVD. LUNGS: Fairly clear anteriorly. CARDIOVASCULAR: S1, S2. Paced. ABDOMEN: Soft and nontender. EXTREMITIES: No edema. LABORATORY DATA: White blood cell count 8.1, hematocrit 31.5, and platelet count 116. ABG result pending. Sodium 136, potassium 4.1, chloride 97, CO2 of 27, BUN 68, creatinine 2.9, and glucose 236. His x-ray looks marginally better than yesterday's film. ASSESSMENT: 1. COVID-19 pneumonia. 2. Acute hypoxic respiratory failure requiring mechanical ventilation. 3. Cardiomyopathy with severely depressed ejection fraction. 4. Acute on chronic renal failure. PLAN: 1. Await the results of today's ABG. I have decreased his FiO2 on mechanical ventilation. He continues on cefepime. Also continues on high-dose steroids. 2. Hopefully with dialysis, his O2 status will continue to improve. I am not sure how much of this is COVID-19 pneumonia and how much of this is fluid overload or may be a combination of both. I think he is a very marginal candidate for extubation at this time. Hopefully by later this week, he will be in better state for extubation. Job ID: [id number]
--- NOTE | 2020-02-05 08:21 | PDOC.BPN ---
- Brief Progress Note No overnight events. No physical encounter in order to avoid unnecessary exposure. Ventilation per PCCM, hyperglycemia poorly controlled so started lantus on top of mild sliding.
--- NOTE | 2020-02-05 08:54 | RAD ---
PORTABLE CHEST: HISTORY: Followup pneumonia. FINDINGS: Heart size is enlarged. Postop sternotomy change is present. Endotracheal and NG tubes are in [employer] position. Parenchymal lung changes remain stable as compared to the prior exam. IMPRESSION: Stable chest. POS: AYDEN
[2020-02-05] MEDS: Ascorbic Acid 500 mg Chewable Tablet PO SCH (10:58)
[2020-02-05] MEDS: Heparin 5,000 UNITS/ML VIAL SC SCH ×2 (10:59→20:05)
[2020-02-05] MEDS: Famotidine/PF 20 mg/2ml Vial SLOW IVP SCH (10:59)
[2020-02-05] MEDS: Carvedilol 6.25 MG TAB PO SCH ×2 (10:59→20:05)
[2020-02-05] MEDS: Multivitamin W/ Minerals 1 TAB PO SCH (10:59)
[2020-02-05] MEDS: Zinc Sulfate 220 MG CAP PO SCH (10:59)
[2020-02-05] MEDS: Pantoprazole 40 MG VIAL IVP SCH ×2 (11:03→20:06)
[2020-02-05] MEDS: Insulin Glargine 10 UNITS in Pre-Filled Syringe 1 EACH SC SCH (11:03)
--- NOTE | 2020-02-05 11:33 | PDOC.CPN ---
- Subjective Date: 02/05/20 Time: 08:30 Interval history: The pt seen and examined. No overnight events. On Vent with vent sedation. However, he opened his eyes and recognized people. - Objective Allergies/Adverse Reactions: Allergies Allergy/AdvReac Type Severity Reaction Status Date / Time vancomycin Allergy Verified 08/27/19 01:18 Visit Medications: Current Medications Acetaminophen (Tylenol) 650 mg PO Q4H PRN PRN Reason: Headache/Fever/Mild Pain (1-3) Acetaminophen (Tylenol) 650 mg [place] Q4H PRN PRN Reason: Headache/Fever/Mild Pain (1-3) Ascorbic Acid (Vitamin C) 1,000 mg PO DAILY [facility] Last Admin: 02/05/20 10:58 Dose: 1,000 mg Aspirin (Aspirin Chewable) 81 mg PO HS [facility] Last Admin: 02/04/20 20:40 Dose: 81 mg Atorvastatin Calcium (Lipitor) 40 mg PO HS [facility] Last Admin: 02/04/20 20:39 Dose: 40 mg Calcium Carbonate (Tums) 1,000 mg PO Q4H PRN PRN Reason: Heartburn or Indigestion Carvedilol (Coreg) 12.5 mg PO BID [facility] Last Admin: 02/05/20 10:59 Dose: 12.5 mg Dextrose/Water (Dextrose 50%) 25 gm SLOW IVP PRN PRN PRN Reason: Hypoglycemia Famotidine (Pepcid) 20 mg SLOW IVP DAILY [facility] Last Admin: 02/05/20 10:59 Dose: 20 mg Glucagon (Glucagon) 1 mg IM PRN PRN PRN Reason: Hypoglycemia Guaifenesin (Organ-I Nr) 200 mg PO Q4H PRN PRN Reason: Congestion Guaifenesin/Dextromethorphan (Robitussin Dm) 15 ml PO Q4H PRN PRN Reason: Cough Last Admin: 01/31/20 05:16 Dose: 15 ml Heparin Sodium (Porcine) (Heparin) 5,000 units SC BID [facility] Last Admin: 02/05/20 10:59 Dose: 5,000 units Dextrose/Water (D5w) 1,000 mls @ 0 mls/hr IV .Q0M PRN PRN Reason: Hypoglycemia Fentanyl Citrate 2,000 mcg/ (Sodium Chloride) 100 mls @ 0 mls/hr IV INF [facility]; Protocol Stop: 03/01/20 10:45 Fentanyl Citrate (Fentanyl Bolus) 250 mls @ 0 mls/hr IVPB PRN PRN PRN Reason: Breakthrough pain/agitation Stop: 03/01/20 10:45 Cefepime HCl 1 gm/ Sodium (Chloride) 100 mls @ 200 mls/hr IVPB Q24HR [facility] Last Admin: 02/04/20 11:18 Dose: 100 mls Insulin Glargine 10 units/ (Miscellaneous Medication) 0.1 mls @ 0 mls/hr SC QAM [facility] Last Admin: 02/05/20 11:03 Dose: 0.1 mls Insulin Human Regular (Humulin R) 0 units SC .MILD SLIDING SCALE PRN PRN Reason: Mild Correctional Scale Last Admin: 02/05/20 06:40 Dose: 3 unit Iron/Minerals/Multivitamins (Theragran M) 1 tab PO DAILY [facility] Last Admin: 02/05/20 10:59 Dose: 1 tab Lorazepam (Ativan) 2 mg SLOW IVP Q1H PRN PRN Reason: Breakthrough agitation Stop: 03/01/20 10:45 Methylprednisolone Sodium Succinate (Solu-Medrol) 60 mg IVP Q6HR [facility] Last Admin: 02/05/20 11:02 Dose: 60 mg Morphine Sulfate (Morphine) 2 mg SLOW IVP Q1H PRN PRN Reason: Breakthrough Pain/Agitation Stop: 03/01/20 10:45 Ondansetron HCl (Zofran Odt) 4 mg PO Q6H PRN PRN Reason: Nausea/Vomiting Ondansetron HCl (Zofran) 4 mg IVP Q6H PRN PRN Reason: Nausea/Vomiting Pantoprazole Sodium (Protonix) 40 mg IVP Q12HR [facility] Last Admin: 02/05/20 11:03 Dose: 40 mg Propofol (Diprivan) 1,000 mg IV INF PRN; Protocol PRN Reason: TO ACHIEVE GOAL RASS Stop: 03/01/20 10:45 Last Admin: 02/04/20 20:39 Dose: 1,000 mg Propofol (Diprivan Bolus) 20 mg IV Q5MIN PRN PRN Reason: BREAKTHROUGH AGITATION Stop: 03/01/20 10:45 Sodium Chloride (Flush - Normal Saline) 10 ml IVF Q12HR [facility] Last Admin: 02/05/20 11:02 Dose: 10 ml Sodium Chloride (Flush - Normal Saline) 10 ml IVF PRN PRN PRN Reason: Saline Flush Tamsulosin HCl (Flomax) 0.4 mg PO HS [facility] Last Admin: 02/04/20 20:40 Dose: 0.4 mg Zinc Sulfate (Zinc Sulfate) 220 mg PO DAILY [facility] Last Admin: 02/05/20 10:59 Dose: 220 mg Vital Signs & Weight: Vital Signs Temp Pulse Resp BP 02/05/20 10:59 108/59 L 02/05/20 10:28 70 98/43 L 02/05/20 10:00 16 02/05/20 09:00 98.0 F 02/05/20 07:20 70 121/66 02/05/20 06:00 16 02/05/20 04:00 97.9 F 18 02/05/20 02:22 70 02/05/20 02:00 14 02/05/20 00:00 97.9 F 15 Admit Weight 163 lb 11.2 oz Weight 157 lb 13.616 oz - Physical Exam Lungs: decreased breath sounds Extremities: other: (generalized edema) - Labs Result Diagrams: 02/05/20 03:52 02/05/20 03:52 Troponin/CKMB CK-MB (CK-2) 1.5 ng/mL (0-6.6) 01/29/20 00:06 Troponin I 0.347 ng/mL (< 0.028) H* 01/31/20 18:12 - Telemetry Sinus rhythms and dysrhythmias: other (AV paced) - Assessment/Plan Assessment/Plan: 1. Acute on chronic systolic HR - on HD today; on Coreg 2. 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 COVID-19 pneumonia 4. CAD with hx of CABG in 2004 - cath in 06/2019 showed grafts remain patent ; on Coreg, ASA, and Lipitor 5. hx of VT with s/p VT RFA x2 in 07/2019 - BiV AICD in place; Amiodarone was off since on 02/04/2020 6. Paroxysmal afib/Aflutter with hx of several RFA - on Coreg and ASA only due to chronic Anemia and hx of falls 7. ESRD with HD - managed by Dr Jo 8. Chronic Anemia - stable MAR reviewed * Echo on 01/31/2020 with EF 10-15% (35-40% in 02/2019), grade III dd, severe LAE , mild-mod MR, and mild TR and TX Pt. seen and records reviewed. He remains on the ventilator. The CXR looks better today but still has a poor prognosis with the decreased EF.Continue present Tx. carl
[2020-02-05] MEDS: Cefepime 1 GM in Sodium Chloride 0.9% 100 ML IVPB SCH (12:05)
--- NOTE | 2020-02-05 16:03 | PDOC.PALPN ---
Palliative Progress Note - Subjective Intubated, mechanical ventilation. Opens eyes, makes eye contact. - Objective Vital Signs: Vital Signs - Most Recent Temp Pulse Resp BP Pulse Ox 98.4 F 71 19 130/65 95 02/05/20 12:00 02/05/20 15:38 02/05/20 14:00 02/05/20 15:38 02/05/20 08:00 - Physical Exam Constitutional: ill appearing HEENT: moist MMs, sclera anicteric Respiratory: no rhonchi, no wheezing Deviation from normal: mechanical ventilation Cardiovascular: RRR Gastrointestinal: soft, non-tender Genitourinary: luna catheter Musculoskeletal: pulses present Neurology: no focal deficits Skin: cap refill <2 seconds, fragile Deviation from normal: Opens eyes spontaneously - Assessment (1) Palliative care encounter Code(s): Z51.5 - ENCOUNTER FOR PALLIATIVE CARE Current Visit: Yes Status: Acute (2) Acute on chronic systolic (congestive) heart failure Code(s): I50.23 - ACUTE ON CHRONIC SYSTOLIC (CONGESTIVE) HEART FAILURE Current Visit: Yes Status: Acute (3) COVID-19 Code(s): U07.1 - COVID-19 Current Visit: Yes Status: Acute (4) ESRD (end stage renal disease) Code(s): N18.6 - END STAGE RENAL DISEASE Current Visit: No Status: Acute (5) Cardiomyopathy Code(s): I42.9 - CARDIOMYOPATHY, UNSPECIFIED Current Visit: No Status: Chronic - Plan Plan: Communicated with Sean. Using bluetooth speaker played patient "audio messages". He opened eyes, and waved/Positive interaction. Palliative Care will continue to provide patient and family support as Mr Venegas recovers. [20] minutes spent on this encounter with >50% of the time in counseling and coordination of care. - ROS Non Response: due to endotracheal tube
[2020-02-05] MEDS ORDERED: Sodium Chloride 0.9% (PF) 10 ML VIAL FS PRN (18:49)
[2020-02-05] MEDS: Tamsulosin HCl 0.4 MG CAP PO SCH (20:04)
[2020-02-05] MEDS: Aspirin Chewable 81 MG TAB PO SCH (20:05)
[2020-02-05] MEDS: Atorvastatin Calcium 40 MG TAB PO SCH (20:06)
[2020-02-06] MEDS: methylPREDNISolone Sod Succ 40 MG VIAL IVP SCH ×5 (01:04→23:52)
[2020-02-06] MEDS: Propofol 1,000 MG/100 ML VIAL IV PRN ×3 (03:52→22:29)
[2020-02-06 04:37] LABS: #Lymphocytes 0.2 thou/uL (1.20-3.40); #Monocytes 0.4 thou/uL (0.11-0.59); #Neutrophils 9.3 thou/uL (1.40-6.50); %Eosinophils 0.1 % (0.0-10.0); %Lymphocytes 2.2 % (21.0-51.0); %Monocytes 3.7 % (0.0-10.0); Hemoglobin 10.9 g/dL (14.0-18.0); Mean Corpuscular HGB CONC 34.2 g/dL (32.0-36.0); Mean Corpuscular Hemoglobin 33.9 pg (27.0-31.0); Mean Corpuscular Volume 99.2 fL (78.0-98.0); Mean Platelet Volume 9.5 fL (7.4-10.4); Platelet Count 119 thou/uL (130-400); RBC Distribution Width 12.9 % (11.5-14.5); Red Blood Cell (RBC) Count 3.23 mill/uL (4.70-6.10); White Blood Cell (WBC) Count 9.9 thou/uL (4.8-10.8)
[2020-02-06 04:38] LABS: Anion Gap 17 mmol/L (10-20); BUN (Urea Nitrogen) 72 mg/dL (8.4-25.7); Calc. Creatinine Clearance 20 mL/min (70-130); Calcium 7.8 mg/dL (7.8-10.44); Carbon Dioxide 24 mmol/L (23-31); Chloride 98 mmol/L (98-107); Estimated GFR-MDRD 19; Glucose 222 mg/dL (83-110); Potassium 4.3 mmol/L (3.5-5.1); Sodium 135 mmol/L (136-145)
[2020-02-06 07:06] LABS: Actual Bicarbonate (HCO3a) 24.4 mEq/L (22-28); Base Excess (BEa) 0.5 mEq/L (-2.0 to +3.0); CO2 Tension 36.9 mmHg (35.0-45.0); Calcium, Ionized (arterial) 1.05 mmol/L (1.12-1.30); Carboxyhemoglobin (COHb) 0.1 gm% (0.0-3.0); Hemoglobin (Hb) 10.7 g/dL (14.0-18.0); O2 Tension (PaO2), arterial 69.4 mmHg (> 70.0); Potassium - ABG Lab 4.23 mmol/L (3.70-5.30); pH, Arterial 7.44 (7.35-7.45)
[2020-02-06 07:21] LABS: ALV-art Gradient 205.325 (0-20); Puncture Site LRA
--- NOTE | 2020-02-06 08:45 | RAD ---
PORTABLE CHEST 1 VIEW: DATE: 02/06/2020. TIME: 4:58 AM. HISTORY: Pneumonia, respiratory failure. COMPARISON: Previous day. FINDINGS: Changes of median sternotomy are again seen. Left-sided AICD remains in place. Endotracheal and lakeisha ogastric tube positions are unchanged. The heart is enlarged. The lungs are expanded but stable rebecca ateral parenchymal changes. No pneumothoraces or large effusions are seen. IMPRESSION: Stable exam. POS: OFF
--- NOTE | 2020-02-06 08:54 | PRG ---
DATE OF SERVICE: 02/06/2020 35 minutes of critical care time. SUBJECTIVE: The patient remains ventilated. He is sedated. OBJECTIVE: VITAL SIGNS: Temperature 98, pulse 70, blood pressure 125/66, O2 saturation 99%. 24-hour intake 1649, output 1500. HEENT: Unremarkable. NECK: No adenopathy or JVD. LUNGS: Fairly clear anteriorly. CARDIAC: S1 and S2, regular. ABDOMEN: Soft. EXTREMITIES: No edema. LABORATORY DATA: White blood cell count 9.9, hematocrit 32, and platelet count 119. A pH of 7.44, pCO2 of 37, pO2 of 69, on SIMV rate 6, tidal volume 500, PEEP 7, pressure support 10, FiO2 of 45%. Sodium 135, potassium 4.3, chloride 98, CO2 of 24, BUN 72, creatinine 3.1, and glucose 222. Chest x-ray shows bilateral interstitial infiltrates. Overall, I would say it is unchanged over the last 3 days. ASSESSMENT: 1. COVID-19 pneumonia. 2. Acute hypoxic respiratory failure, requiring mechanical ventilation. 3. Cardiomyopathy with severely depressed ejection fraction. 4. Acute on chronic renal failure. PLAN: I have cut down the patient's FiO2. He is actually doing fairly well from an oxygenation standpoint, but I am not sure whether or not he would tolerate aggressive weaning at this time. He will continue hemodialysis. He will continue high-dose steroids and the antibiotics. Job ID: [id number]
[2020-02-06] MEDS: Morphine 2 MG/ML VIAL SLOW IVP PRN ×2 (09:03→13:58)
[2020-02-06] MEDS: Ascorbic Acid 500 mg Chewable Tablet PO SCH (09:04)
[2020-02-06] MEDS: Heparin 5,000 UNITS/ML VIAL SC SCH ×2 (09:04→20:52)
[2020-02-06] MEDS: Insulin Glargine 10 UNITS in Pre-Filled Syringe 1 EACH SC SCH (09:04)
[2020-02-06] MEDS: Acetaminophen 325 MG TAB PO PRN (09:04)
[2020-02-06] MEDS: Multivitamin W/ Minerals 1 TAB PO SCH (09:05)
[2020-02-06] MEDS: Carvedilol 6.25 MG TAB PO SCH ×3 (09:05→20:52)
[2020-02-06] MEDS: Zinc Sulfate 220 MG CAP PO SCH (09:05)
[2020-02-06] MEDS: Cefepime 0.5 GM, Admixture Fee 1 EACH in Sodium Chloride 0.9% 100 ML IVPB SCH (13:58)
--- NOTE | 2020-02-06 14:06 | PDOC.HOSPP ---
- Subjective Encounter Date: 02/06/20 Encounter Time: 08:00 Subjective: no overnight events. Intubated and sedated. FIO2 lowered by PCCM but not ready for extubation. - Objective Vital Signs & Weight: Vital Signs (12 hours) Temp Pulse Resp BP 02/06/20 12:00 19 02/06/20 11:34 70 103/54 L 02/06/20 10:00 16 02/06/20 09:06 92/56 L 02/06/20 09:05 92/56 L 02/06/20 08:00 97.7 F 02/06/20 06:51 70 92/56 L 02/06/20 06:00 16 02/06/20 04:00 98.0 F 18 02/06/20 02:29 70 Weight Admit Weight 163 lb 11.2 oz Weight 375 lb 10.683 oz Most Recent Monitor Data Heart Rate from ECG 70 NIBP 90/47 NIBP BP-Mean 61 Respiration from ECG 15 SpO2 94 I&O: 02/05/20 02/06/20 02/07/20 06:59 06:59 06:59 Intake Total 1606 1649 100 Output Total 50 47 Balance 1556 1602 100 Result Diagrams: 02/06/20 04:07 02/06/20 04:07 Additional Labs: Accuchecks 02/06/20 02/05/20 02/05/20 06:08 21:16 17:06 POC Glucose 253 H 223 H 188 H Hospitalist ROS - Review of Systems ROS unobtainable: due to endotracheal tube - Medication Medications: Active Medications Generic Name Dose Route Start Last Admin Trade Name Nando PRN Reason Stop Dose Admin Acetaminophen 650 mg 01/29/20 02:16 02/06/20 09:04 Tylenol PO 650 mg Q4H PRN Administration Headache/Fever/Mild Pain (1-3) Ascorbic Acid 1,000 mg 01/30/20 09:00 02/06/20 09:04 Vitamin C PO 1,000 mg DAILY ROMAN Administration Aspirin 81 mg 01/29/20 21:00 02/05/20 20:05 Aspirin Chewable PO 81 mg HS ROMAN Administration Atorvastatin Calcium 40 mg 02/04/20 21:00 02/05/20 20:06 Lipitor PO 40 mg HS ROMAN Administration Carvedilol 12.5 mg 01/29/20 21:00 02/06/20 09:06 Coreg PO 12.5 mg BID ROMAN Administration Guaifenesin/Dextromethorphan 15 ml 01/29/20 02:16 01/31/20 05:16 Robitussin Dm PO 15 ml Q4H PRN Administration Cough Heparin Sodium (Porcine) 5,000 units 01/29/20 21:00 02/06/20 09:04 Heparin SC 5,000 units BID ROMAN Administration Insulin Glargine 10 units/ 0.1 mls @ 0 mls/hr 02/05/20 09:00 02/06/20 09:04 Miscellaneous Medication SC 0.1 mls QAM ROMAN Administration Cefepime HCl 0.5 gm/ 100 mls @ 200 mls/hr 02/06/20 15:00 02/06/20 13:58 Miscellaneous Medication 1 IVPB 100 mls each/ Sodium Chloride 1500 ROMAN Administration Insulin Human Regular 0 units 01/29/20 03:58 02/05/20 21:00 Humulin R SC 3 unit .MILD SLIDING SCALE PRN Administration Mild Correctional Scale Iron/Minerals/Multivitamins 1 tab 01/30/20 09:00 02/06/20 09:05 Theragran M PO 1 tab DAILY ROMAN Administration Methylprednisolone Sodium Succinate 60 mg 01/31/20 12:00 02/06/20 13:57 Solu-Medrol IVP 60 mg Q6HR ROMAN Administration Morphine Sulfate 2 mg 01/31/20 10:45 02/06/20 13:58 Morphine SLOW IVP 03/01/20 10:45 2 mg Q1H PRN Administration Breakthrough Pain/Agitation Pantoprazole Sodium 40 mg 02/05/20 20:00 02/05/20 20:06 Protonix IVP 40 mg Q24H ROMAN Administration Propofol 1,000 mg 01/31/20 10:45 02/06/20 13:58 Diprivan IV 03/01/20 10:45 1,000 mg INF PRN Administration TO ACHIEVE GOAL RASS Protocol Sodium Chloride 10 ml 02/01/20 21:00 02/06/20 09:07 Flush - Normal Saline IVF 10 ml Q12HR ROMAN Administration Tamsulosin HCl 0.4 mg 01/29/20 21:00 02/05/20 20:04 Flomax PO 0.4 mg HS ROMAN Administration Zinc Sulfate 220 mg 01/30/20 09:00 02/06/20 09:05 Zinc Sulfate PO 220 mg DAILY ROMAN Administration - Exam General - other findings: intubated, sedated Eye: PERRL Heart: RRR, no murmur, no gallops, no rubs Heart - other findings: Biv Paced Respiratory: CTAB, no wheezes, no rales, no ronchi Gastrointestinal: soft, non-distended, normal bowel sounds Extremities: no edema Hosp A/P - Plan (1) Cardiac arrest Code(s): I46.9 - CARDIAC ARREST, CAUSE UNSPECIFIED Status: Acute Plan: s/p arrest with ROSC, likely multifactorial process, EF 10% by Echo (2) Acute respiratory failure with hypoxia Code(s): J96.01 - ACUTE RESPIRATORY FAILURE WITH HYPOXIA Status: Acute Plan: not weanable at this time; ventilation as per PCCM (3) Acute on chronic systolic (congestive) heart failure Code(s): I50.23 - ACUTE ON CHRONIC SYSTOLIC (CONGESTIVE) HEART FAILURE Status : Acute borderline hypotension; reduced coreg (4) COVID-19 Code(s): U07.1 - COVID-19 Status: Acute Plan: Continue steroids, cefepime as per PCCM (6) ESRD (end stage renal disease) on dialysis Code(s): N18.6 - END STAGE RENAL DISEASE; Z99.2 - DEPENDENCE ON RENAL DIALYSIS Status: Chronic Plan: HD per nephrology - Plan not weanable, continue cefepime and solumedrol per PCCM, continue HD per neprho reduced coreg due to borderline hypotension palliative care team onboard Full code
[2020-02-06] MEDS: Aspirin Chewable 81 MG TAB PO SCH (20:51)
[2020-02-06] MEDS: Pantoprazole 40 MG VIAL IVP SCH (20:51)
[2020-02-06] MEDS: Atorvastatin Calcium 40 MG TAB PO SCH (20:52)
[2020-02-06] MEDS: Tamsulosin HCl 0.4 MG CAP PO SCH (20:52)
[2020-02-06] MEDS: Insulin Regular 300 UNITS/3 ML VIAL SC PRN (21:15)
[2020-02-06] MEDS ORDERED: Sodium Bicarbonate Tab 325 MG TAB PER TUBE PRN (23:47)
[2020-02-06] MEDS ORDERED: Pancrelipase DR 12,000 1 CAP FS PRN (23:47)
[2020-02-07] MEDS: Insulin Regular 300 UNITS/3 ML VIAL SC PRN ×4 (02:52→22:24)
[2020-02-07 03:06] LABS: #Lymphocytes 0.5 thou/uL (1.20-3.40); #Monocytes 0.4 thou/uL (0.11-0.59); #Neutrophils 9.7 thou/uL (1.40-6.50); %Basophils 0.2 % (0.0-1.0); %Eosinophils 0.2 % (0.0-10.0); %Lymphocytes 4.4 % (21.0-51.0); %Monocytes 3.7 % (0.0-10.0); %Neutrophils 91.6 % (42.0-75.0); Hemoglobin 11.5 g/dL (14.0-18.0); Mean Corpuscular HGB CONC 34.3 g/dL (32.0-36.0); Mean Corpuscular Hemoglobin 34.8 pg (27.0-31.0); Mean Platelet Volume 10.4 fL (7.4-10.4); Platelet Count 121 thou/uL (130-400); Red Blood Cell (RBC) Count 3.32 mill/uL (4.70-6.10); White Blood Cell (WBC) Count 10.6 thou/uL (4.8-10.8)
[2020-02-07 03:26] LABS: Anion Gap 20 mmol/L (10-20); BUN (Urea Nitrogen) 72 mg/dL (8.4-25.7); Calc. Creatinine Clearance 51 mL/min (70-130); Carbon Dioxide 22 mmol/L (23-31); Chloride 100 mmol/L (98-107); Estimated GFR-MDRD 21; Glucose 162 mg/dL (83-110); Potassium 4.9 mmol/L (3.5-5.1); Sodium 137 mmol/L (136-145)
[2020-02-07] MEDS: methylPREDNISolone Sod Succ 40 MG VIAL IVP SCH ×3 (04:54→16:12)
[2020-02-07 06:24] LABS: Magnesium 2.5 mg/dL (1.6-2.6); Phosphorus 4.4 mg/dL (2.3-4.7)
[2020-02-07 07:42] LABS: Actual Bicarbonate (HCO3a) 22.9 mEq/L (22-28); Base Excess (BEa) -0.7 mEq/L (-2.0 to +3.0); CO2 Tension 34.1 mmHg (35.0-45.0); Calcium, Ionized (arterial) 1.06 mmol/L (1.12-1.30); Carboxyhemoglobin (COHb) 0.2 gm% (0.0-3.0); Hemoglobin (Hb) 11.2 g/dL (14.0-18.0); O2 Tension (PaO2), arterial 60.4 mmHg (> 70.0); Potassium - ABG Lab 4.73 mmol/L (3.70-5.30); pH, Arterial 7.45 (7.35-7.45)
--- NOTE | 2020-02-07 07:55 | PRG ---
DATE OF SERVICE: 02/07/2020 35 minutes of critical care time. SUBJECTIVE: The patient remains intubated on mechanical ventilation. He will wake up and follow commands without limitation. OBJECTIVE: VITAL SIGNS: Temperature 97.0, pulse 89, blood pressure 103/58, and O2 saturation in the mid 90s. HEENT: Unremarkable. NECK: No adenopathy or JVD. CHEST: Fairly clear anteriorly. CARDIAC: S1 and S2. Regular. ABDOMEN: Soft. EXTREMITIES: No edema. LABORATORY DATA: Ferritin levels . C-reactive protein 5.8. Sodium 137, potassium 4.9, chloride 100, CO2 of 22, BUN 72, creatinine 2.9, and glucose 162. White blood cell count 10.6, hematocrit 33.6, and platelet count 121. ABG result pending. IMAGING DATA: Chest x-ray continues to show reticular infiltrates bilaterally. ASSESSMENT: 1. COVID-19 pneumonia. 2. Acute hypoxic respiratory failure, requiring mechanical ventilation. 3. Cardiomyopathy with severely depressed ejection fraction. 4. Chronic renal failure. PLAN: 1. His oxygenation looks really good. We will try him on spontaneous breathing trial and see how he tolerates that. After that, he could possibly be extubated to high- flow nasal cannula. I spoke with his son at length on the phone last night. 2. The patient will also continue antibiotics and steroids. Job ID: [id number]
--- NOTE | 2020-02-07 07:58 | RAD ---
EXAM: Single view of the chest HISTORY: Pneumonia COMPARISON: 02/06/2020 FINDINGS: Single view of the chest shows an enlarged but stable cardiomediastinal silhouette. The pa tient is status post sternotomy. The lines and tubes are unchanged in position. The pacemaker is unchanged in position. Stable multifocal mixed infiltrates are seen in the lungs. Postsurgical change s are seen in the left shoulder. IMPRESSION: Stable multifocal pneumonia
--- NOTE | 2020-02-07 08:14 | PDOC.CPN ---
- Subjective Date: 02/07/20 Time: 08:16 Interval history: The pt seen and examined. No overnight events. Still on Vent with sedation. However, he opens his eyes. - Objective Allergies/Adverse Reactions: Allergies Allergy/AdvReac Type Severity Reaction Status Date / Time vancomycin Allergy Verified 08/27/19 01:18 Visit Medications: Current Medications Acetaminophen (Tylenol) 650 mg PO Q4H PRN PRN Reason: Headache/Fever/Mild Pain (1-3) Last Admin: 02/06/20 09:04 Dose: 650 mg Acetaminophen (Tylenol) 650 mg [place] Q4H PRN PRN Reason: Headache/Fever/Mild Pain (1-3) Lipase/Protease/Amylase ([place] [id number]) 1 cap FS .PER PROTOCOL PRN PRN Reason: TUBE OCCLUSION PROTOCOL Last Admin: 02/07/20 01:06 Dose: 1 cap Ascorbic Acid (Vitamin C) 1,000 mg PO DAILY [facility] Last Admin: 02/06/20 09:04 Dose: 1,000 mg Aspirin (Aspirin Chewable) 81 mg PO HS [facility] Last Admin: 02/06/20 20:51 Dose: 81 mg Atorvastatin Calcium (Lipitor) 40 mg PO HS [facility] Last Admin: 02/06/20 20:52 Dose: 40 mg Calcium Carbonate (Tums) 1,000 mg PO Q4H PRN PRN Reason: Heartburn or Indigestion Carvedilol (Coreg) 6.25 mg PO BID [facility] Last Admin: 02/06/20 20:52 Dose: 6.25 mg Dextrose/Water (Dextrose 50%) 25 gm SLOW IVP PRN PRN PRN Reason: Hypoglycemia Glucagon (Glucagon) 1 mg IM PRN PRN PRN Reason: Hypoglycemia Guaifenesin (Organ-I Nr) 200 mg PO Q4H PRN PRN Reason: Congestion Guaifenesin/Dextromethorphan (Robitussin Dm) 15 ml PO Q4H PRN PRN Reason: Cough Last Admin: 01/31/20 05:16 Dose: 15 ml Heparin Sodium (Porcine) (Heparin) 5,000 units SC BID [facility] Last Admin: 02/06/20 20:52 Dose: 5,000 units Dextrose/Water (D5w) 1,000 mls @ 0 mls/hr IV .Q0M PRN PRN Reason: Hypoglycemia Fentanyl Citrate 2,000 mcg/ (Sodium Chloride) 100 mls @ 0 mls/hr IV INF [facility]; Protocol Stop: 03/01/20 10:45 Fentanyl Citrate (Fentanyl Bolus) 250 mls @ 0 mls/hr IVPB PRN PRN PRN Reason: Breakthrough pain/agitation Stop: 03/01/20 10:45 Insulin Glargine 10 units/ (Miscellaneous Medication) 0.1 mls @ 0 mls/hr SC QAM [facility] Last Admin: 02/06/20 09:04 Dose: 0.1 mls Cefepime HCl 0.5 gm/Miscellaneous Medication 1 each/ Sodium Chloride 100 mls @ 200 mls/hr IVPB 1500 [facility] Last Admin: 02/06/20 13:58 Dose: 100 mls Insulin Human Regular (Humulin R) 0 units SC .MILD SLIDING SCALE PRN PRN Reason: Mild Correctional Scale Last Admin: 02/07/20 02:52 Dose: 2 unit Iron/Minerals/Multivitamins (Theragran M) 1 tab PO DAILY [facility] Last Admin: 02/06/20 09:05 Dose: 1 tab Lorazepam (Ativan) 2 mg SLOW IVP Q1H PRN PRN Reason: Breakthrough agitation Stop: 03/01/20 10:45 Methylprednisolone Sodium Succinate (Solu-Medrol) 60 mg IVP Q6HR [facility] Last Admin: 02/07/20 04:54 Dose: 60 mg Morphine Sulfate (Morphine) 2 mg SLOW IVP Q1H PRN PRN Reason: Breakthrough Pain/Agitation Stop: 03/01/20 10:45 Last Admin: 02/06/20 13:58 Dose: 2 mg Ondansetron HCl (Zofran Odt) 4 mg PO Q6H PRN PRN Reason: Nausea/Vomiting Ondansetron HCl (Zofran) 4 mg IVP Q6H PRN PRN Reason: Nausea/Vomiting Pantoprazole Sodium (Protonix) 40 mg IVP Q24H [facility] Last Admin: 02/06/20 20:51 Dose: 40 mg Propofol (Diprivan) 1,000 mg IV INF PRN; Protocol PRN Reason: TO ACHIEVE GOAL RASS Stop: 03/01/20 10:45 Last Admin: 02/06/20 22:29 Dose: 1,000 mg Propofol (Diprivan Bolus) 20 mg IV Q5MIN PRN PRN Reason: BREAKTHROUGH AGITATION Stop: 03/01/20 10:45 Sodium Bicarbonate (Bicarbonate, Sodium) 650 mg PER TUBE .PER PROTOCOL PRN PRN Reason: ENTERAL TUBE OCCLUSION Last Admin: 02/07/20 01:06 Dose: 650 mg Sodium Chloride (Flush - Normal Saline) 10 ml IVF Q12HR [facility] Last Admin: 02/06/20 20:57 Dose: 10 ml Sodium Chloride (Flush - Normal Saline) 10 ml IVF PRN PRN PRN Reason: Saline Flush Sodium Chloride (Normal Saline Pf) 10 ml FS PRN PRN PRN Reason: RECONSTITUTION Tamsulosin HCl (Flomax) 0.4 mg PO HS [facility] Last Admin: 02/06/20 20:52 Dose: 0.4 mg Zinc Sulfate (Zinc Sulfate) 220 mg PO DAILY [facility] Last Admin: 02/06/20 09:05 Dose: 220 mg Vital Signs & Weight: Vital Signs Temp Pulse Resp BP 02/07/20 06:00 18 02/07/20 04:00 97.0 F L 18 02/07/20 02:28 93 114/60 02/07/20 02:00 14 02/07/20 00:00 97.0 F L 17 02/06/20 22:52 70 02/06/20 22:00 18 02/06/20 20:52 121/55 L Admit Weight 163 lb 11.2 oz Weight 151 lb 10.848 oz - Physical Exam General: other (opens his eyes) Cardiac: regular rate and rhythm, S1/S2 Lungs: decreased breath sounds Extremities: other: (mildly generalized edema) - Labs Result Diagrams: 02/07/20 02:52 02/07/20 02:52 Troponin/CKMB CK-MB (CK-2) 1.5 ng/mL (0-6.6) 01/29/20 00:06 Troponin I 0.347 ng/mL (< 0.028) H* 01/31/20 18:12 - Telemetry Sinus rhythms and dysrhythmias: other (AV paced) - Assessment/Plan Assessment/Plan: 1. Acute on chronic systolic HR - on HD today; on Coreg 2. 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 COVID-19 pneumonia 4. CAD with hx of CABG in 2004 - cath in 06/2019 showed grafts remain patent ; on Coreg, ASA, and Lipitor 5. hx of VT with s/p VT RFA x2 in 07/2019 - BiV AICD in place; Amiodarone was off since on 02/04/2020 6. Paroxysmal afib/Aflutter with hx of several RFA - on Coreg and ASA only due t o chronic Anemia and hx of falls 7. ESRD with HD - managed by Dr Jo 8. Chronic Anemia - stable 9. Elevated LFT with elevated Ferritin MAR reviewed * Echo on 01/31/2020 with EF 10-15% (35-40% in 02/2019), grade III dd, severe LAE, mild-mod MR, and mild TR and OK
[2020-02-07 08:32] LABS: Puncture Site LR
[2020-02-07 08:35] LABS: ALV-art Gradient 182.175 (0-20)
--- NOTE | 2020-02-07 09:05 | PDOC.BPN ---
- Brief Progress Note no overnight events. Avoided physical encounter for unnecessary exposure. Coreg reduced yesterday for borderline hypotension. elevated inflammatory markers. Tele showing Biv pacing. ventilation as per PCCM
[2020-02-07] MEDS: Amiodarone 200 MG TAB PO SCH ×2 (10:29→20:25)
[2020-02-07] MEDS: Carvedilol 6.25 MG TAB PO SCH ×2 (10:29→20:25)
[2020-02-07] MEDS: Multivitamin W/ Minerals 1 TAB PO SCH (10:29)
[2020-02-07] MEDS: Ascorbic Acid 500 mg Chewable Tablet PO SCH (10:30)
[2020-02-07] MEDS: Heparin 5,000 UNITS/ML VIAL SC SCH ×2 (10:30→20:24)
[2020-02-07] MEDS: Insulin Glargine 10 UNITS in Pre-Filled Syringe 1 EACH SC SCH (10:30)
[2020-02-07] MEDS: Zinc Sulfate 220 MG CAP PO SCH (10:36)
[2020-02-07] MEDS ORDERED: Melatonin 3 MG TAB PO PRN (15:51)
[2020-02-07] MEDS: ALPRAZolam 0.25 MG TAB PO PRN (16:12)
[2020-02-07] MEDS: Cefepime 0.5 GM, Admixture Fee 1 EACH in Sodium Chloride 0.9% 100 ML IVPB SCH (16:13)
[2020-02-07] MEDS: Acetaminophen 325 MG TAB PO PRN (16:13)
[2020-02-07] MEDS: Pantoprazole 40 MG VIAL IVP SCH (20:24)
[2020-02-07] MEDS: Aspirin Chewable 81 MG TAB PO SCH (20:25)
[2020-02-07] MEDS: Atorvastatin Calcium 40 MG TAB PO SCH (20:25)
[2020-02-07] MEDS: Tamsulosin HCl 0.4 MG CAP PO SCH (20:25)
[2020-02-08] MEDS: methylPREDNISolone Sod Succ 40 MG VIAL IVP SCH ×2 (00:26→05:18)
[2020-02-08 03:48] LABS: #Lymphocytes 0.5 thou/uL (1.20-3.40); #Monocytes 0.4 thou/uL (0.11-0.59); #Neutrophils 11.4 thou/uL (1.40-6.50); %Eosinophils 0.2 % (0.0-10.0); %Lymphocytes 3.9 % (21.0-51.0); %Monocytes 3.2 % (0.0-10.0); %Neutrophils 92.8 % (42.0-75.0); Mean Corpuscular HGB CONC 34.3 g/dL (32.0-36.0); Mean Corpuscular Volume 99.1 fL (78.0-98.0); Mean Platelet Volume 10.2 fL (7.4-10.4); Platelet Count 146 thou/uL (130-400); RBC Distribution Width 13.2 % (11.5-14.5); Red Blood Cell (RBC) Count 3.23 mill/uL (4.70-6.10); White Blood Cell (WBC) Count 12.2 thou/uL (4.8-10.8)
[2020-02-08] MEDS: ALPRAZolam 0.25 MG TAB PO PRN (03:54)
[2020-02-08 04:12] LABS: Anion Gap 22 mmol/L (10-20); BUN (Urea Nitrogen) 125 mg/dL (8.4-25.7); Calc. Creatinine Clearance 14 mL/min (70-130); Calcium 7.9 mg/dL (7.8-10.44); Carbon Dioxide 22 mmol/L (23-31); Chloride 98 mmol/L (98-107); Estimated GFR-MDRD 14; Glucose 159 mg/dL (83-110); Potassium 5.6 mmol/L (3.5-5.1); Sodium 136 mmol/L (136-145)
[2020-02-08 04:13] LABS: CRP (Inflammatory) 4.31 mg/dL (= or < 0.5); Magnesium 2.7 mg/dL (1.6-2.6)
[2020-02-08 04:14] LABS: Phosphorus 5.6 mg/dL (2.3-4.7)
[2020-02-08] MEDS: Insulin Regular 300 UNITS/3 ML VIAL SC PRN ×2 (06:40→10:08)
[2020-02-08] MEDS: Ascorbic Acid 500 mg Chewable Tablet PO SCH (07:49)
[2020-02-08] MEDS: Acetaminophen 325 MG TAB PO PRN (07:49)
[2020-02-08] MEDS: Carvedilol 6.25 MG TAB PO SCH ×2 (07:50→20:02)
[2020-02-08] MEDS: Amiodarone 200 MG TAB PO SCH ×2 (07:50→20:02)
[2020-02-08] MEDS: Multivitamin W/ Minerals 1 TAB PO SCH (07:50)
[2020-02-08] MEDS: Insulin Glargine 10 UNITS in Pre-Filled Syringe 1 EACH SC SCH (07:51)
[2020-02-08] MEDS: Heparin 5,000 UNITS/ML VIAL SC SCH ×2 (07:51→20:03)
[2020-02-08] MEDS: Zinc Sulfate 220 MG CAP PO SCH (07:51)
--- NOTE | 2020-02-08 07:52 | RAD ---
Chest one view HISTORY: Pneumonia. Follow-up. COMPARISON: 02/07/2020. FINDINGS: Cardiac silhouette is magnified and enlarged. Pulmonary vasculature upper limits of normal. Widespread reticulonodular interstitial prominence similar in appearance. Mediastinum is midline. Endotracheal catheter and nasogastric tube no longer visible. Postoperative c hanges again demonstrated. No lobar consolidation or evidence of pneumothorax. Ill-defined opacity at the right posterior medial lung base is unchanged. IMPRESSION : Interval extubation. Removal of the nasogastric tube. Other findings are stable.
--- NOTE | 2020-02-08 09:12 | PRG ---
DATE OF SERVICE: 02/08/2020 SUBJECTIVE: The patient was successfully extubated yesterday. He is on high-flow nasal cannula. He is very talkative. He says he feels very short of breath. OBJECTIVE: VITAL SIGNS: Temperature 97, respiratory rate 22, pulse 70, O2 saturations in the mid 90s, on 50 L high-flow nasal cannula, blood pressure 92/47. HEENT: Unremarkable. NECK: No JVD. LUNGS: Inspiratory crackles. CARDIAC: S1 and S2. Regular and paced. ABDOMEN: Soft and nontender. EXTREMITIES: No edema. LABORATORY DATA: White blood cell count 12, hematocrit 32, and platelet count 146. Sodium 136, potassium 5.6, chloride 98, CO2 of 22, BUN 125, creatinine 4.2, and glucose 159. Ferritin levels . C-reactive protein 4.31. X-ray shows diffuse infiltrative changes bilaterally. ASSESSMENT: 1. COVID-19 pneumonia. 2. Status post acute hypoxic respiratory failure, requiring mechanical ventilation, now on high-flow nasal cannula. 3. Chronic renal failure, requiring intermittent hemodialysis. 4. Cardiomyopathy with EF 10%. PLAN: 1. Dialysis planned today. I hope that helps his oxygenation some more. 2. Continue high-flow nasal cannula. 3. Continue corticosteroids and anticoagulation. 4. Would leave in ICU for the time being. Job ID: [id number]
[2020-02-08] MEDS: Hydrocortisone Sod Succ/PF 100 mg/2 ml Vial IVP SCH ×3 (13:01→23:19)
--- NOTE | 2020-02-08 13:51 | PDOC.HOSPP ---
- Subjective Encounter Date: 02/08/20 Encounter Time: 09:00 Subjective: overnight, extubated and on HFNC. this morning, feeling well and has no complaints. - Objective Vital Signs & Weight: Vital Signs (12 hours) Temp BP Pulse Ox 02/08/20 13:00 97.7 F 02/08/20 12:00 97.4 F L 02/08/20 10:00 97.4 F L 02/08/20 08:00 97.6 F 98 02/08/20 07:50 114/60 02/08/20 04:00 97.0 F L Weight Admit Weight 163 lb 11.2 oz Weight 154 lb 5.177 oz Most Recent Monitor Data Heart Rate from ECG 101 NIBP 116/65 NIBP BP-Mean 82 Respiration from ECG 32 SpO2 94 I&O: 02/07/20 02/08/20 02/09/20 06:59 06:59 06:59 Intake Total 1404.3 1393 290 Output Total 50 71 0 Balance 1354.3 1322 290 Result Diagrams: 02/08/20 03:35 02/08/20 03:35 Additional Labs: Accuchecks 02/07/20 02/07/20 02/07/20 20:38 16:28 11:05 POC Glucose 163 H 167 H 200 H Hospitalist ROS - Review of Systems Constitutional: denies: chills, sweats Respiratory: reports: cough, dry. denies: shortness of breath, pleuritic pain, sputum Cardiovascular: denies: chest pain, palpitations, orthopnea, paroxysmal noc. dyspnea Gastrointestinal: denies: nausea, vomiting, abdominal pain - Medication Medications: Active Medications Generic Name Dose Route Start Last Admin Trade Name Freq PRN Reason Stop Dose Admin Acetaminophen 650 mg 01/29/20 02:16 02/08/20 07:49 Tylenol PO 650 mg Q4H PRN Administration Headache/Fever/Mild Pain (1-3) Alprazolam 0.125 mg 02/07/20 15:51 02/08/20 03:54 Xanax PO 0.125 mg BIDPRN PRN Administration Anxiety Amiodarone HCl 200 mg 02/07/20 09:00 02/08/20 07:50 Cordarone PO 200 mg BID [facility] Administration Lipase/Protease/Amylase 1 cap 02/06/20 23:47 02/07/20 01:[address] [place] [id number] FS 1 cap .PER PROTOCOL PRN Administration TUBE OCCLUSION PROTOCOL Ascorbic Acid 1,000 mg 01/30/20 09:00 02/08/20 07:49 Vitamin C PO 1,000 mg DAILY [facility] Administration Aspirin 81 mg 01/29/20 21:00 02/07/20 20:25 Aspirin Chewable PO 81 mg HS [facility] Administration Atorvastatin Calcium 40 mg 02/04/20 21:00 02/07/20 20:25 Lipitor PO 40 mg HS [facility] Administration Carvedilol 6.25 mg 02/06/20 21:00 02/08/20 07:50 Coreg PO 6.25 mg BID [facility] Administration Guaifenesin/Dextromethorphan 15 ml 01/29/20 02:16 01/31/20 05:16 Robitussin Dm PO 15 ml Q4H PRN Administration Cough Heparin Sodium (Porcine) 5,000 units 01/29/20 21:00 02/08/20 07:51 Heparin SC 5,000 units BID [facility] Administration Hydrocortisone Sodium Succinate 50 mg 02/08/20 12:00 02/08/20 13:01 Solu-Cortef IVP 50 mg Q6HR [facility] Administration Insulin Glargine 10 units/ 0.1 mls @ 0 mls/hr 02/05/20 09:00 02/08/20 07:51 Miscellaneous Medication SC 0.1 mls QAM [facility] Administration Cefepime HCl 0.5 gm/ 100 mls @ 200 mls/hr 02/06/20 15:00 02/07/20 16:13 Miscellaneous Medication 1 IVPB 100 mls each/ Sodium Chloride 1500 [facility] Administration Insulin Human Regular 0 units 01/29/20 03:58 02/08/20 10:08 Humulin R SC 2 unit .MILD SLIDING SCALE PRN Administration Mild Correctional Scale Iron/Minerals/Multivitamins 1 tab 01/30/20 09:00 02/08/20 07:50 Theragran M PO 1 tab DAILY [facility] Administration Pantoprazole Sodium 40 mg 02/05/20 20:00 02/07/20 20:24 Protonix IVP 40 mg Q24H [facility] Administration Sodium Bicarbonate 650 mg 02/06/20 23:47 02/07/20 01:06 Bicarbonate, Sodium PER TUBE 650 mg .PER PROTOCOL PRN Administration ENTERAL TUBE OCCLUSION Sodium Chloride 10 ml 02/01/20 21:00 02/08/20 09:50 Flush - Normal Saline IVF 10 ml Q12HR [facility] Administration Tamsulosin HCl 0.4 mg 01/29/20 21:00 02/07/20 20:25 Flomax PO 0.4 mg HS [facility] Administration Zinc Sulfate 220 mg 01/30/20 09:00 02/08/20 07:51 Zinc Sulfate PO 220 mg DAILY [facility] Administration - Exam General Appearance: NAD, awake alert Eye: PERRL Neck: no JVD Heart: RRR, no murmur, no gallops, no rubs Heart - other findings: biv paced on tele Respiratory: CTAB, no wheezes, no rales, no ronchi Respiratory - other findings: LLF inspiratory rales Gastrointestinal: soft, non-tender, non-distended, normal bowel sounds Psychiatric: normal affect, normal behavior, A&O x 3 Hosp A/P - Plan (1) Cardiac arrest Code(s): I46.9 - CARDIAC ARREST, CAUSE UNSPECIFIED Status: Acute Plan: s/p arrest with ROSC, likely multifactorial process, EF 10% by Echo (2) Acute respiratory failure with hypoxia Code(s): J96.01 - ACUTE RESPIRATORY FAILURE WITH HYPOXIA Status: Acute Plan: extubated (02/07); on HFNC; CXR showing diffuse multifocal opacities, unchanged per PCCM, leave in ICU for time being (02/07) (3) Acute on chronic systolic (congestive) heart failure Code(s): I50.23 - ACUTE ON CHRONIC SYSTOLIC (CONGESTIVE) HEART FAILURE Status : Acute borderline hypotension; reduced coreg (02/06); cardiology onboard (4) COVID-19 Code(s): U07.1 - COVID-19 Status: Acute Plan: Continue steroids, stop ABx as per PCCM (6) ESRD (end stage renal disease) on dialysis Code(s): N18.6 - END STAGE RENAL DISEASE; Z99.2 - DEPENDENCE ON RENAL DIALYSIS Status: Chronic Plan: HD per nephrology; last session 02/07 Full code ELOS: 3-4 nights
--- NOTE | 2020-02-08 14:20 | PDOC.CPN ---
- Subjective Date: 02/08/20 Time: 14:20 Interval history: The pt seen and examined. No overnight events. No cardiac complaints. - Objective Allergies/Adverse Reactions: Allergies Allergy/AdvReac Type Severity Reaction Status Date / Time vancomycin Allergy Verified 08/27/19 01:18 Visit Medications: Current Medications Acetaminophen (Tylenol) 650 mg PO Q4H PRN PRN Reason: Headache/Fever/Mild Pain (1-3) Last Admin: 02/08/20 07:49 Dose: 650 mg Acetaminophen (Tylenol) 650 mg [place] Q4H PRN PRN Reason: Headache/Fever/Mild Pain (1-3) Alprazolam (Xanax) 0.125 mg PO BIDPRN PRN PRN Reason: Anxiety Last Admin: 02/08/20 03:54 Dose: 0.125 mg Amiodarone HCl (Cordarone) 200 mg PO BID [facility] Last Admin: 02/08/20 07:50 Dose: 200 mg Lipase/Protease/Amylase ([place] [id number]) 1 cap FS .PER PROTOCOL PRN PRN Reason: TUBE OCCLUSION PROTOCOL Last Admin: 02/07/20 01:06 Dose: 1 cap Ascorbic Acid (Vitamin C) 1,000 mg PO DAILY [facility] Last Admin: 02/08/20 07:49 Dose: 1,000 mg Aspirin (Aspirin Chewable) 81 mg PO HS [facility] Last Admin: 02/07/20 20:25 Dose: 81 mg Atorvastatin Calcium (Lipitor) 40 mg PO HS [facility] Last Admin: 02/07/20 20:25 Dose: 40 mg Calcium Carbonate (Tums) 1,000 mg PO Q4H PRN PRN Reason: Heartburn or Indigestion Carvedilol (Coreg) 6.25 mg PO BID [facility] Last Admin: 02/08/20 07:50 Dose: 6.25 mg Dextrose/Water (Dextrose 50%) 25 gm SLOW IVP PRN PRN PRN Reason: Hypoglycemia Glucagon (Glucagon) 1 mg IM PRN PRN PRN Reason: Hypoglycemia Guaifenesin (Organ-I Nr) 200 mg PO Q4H PRN PRN Reason: Congestion Guaifenesin/Dextromethorphan (Robitussin Dm) 15 ml PO Q4H PRN PRN Reason: Cough Last Admin: 01/31/20 05:16 Dose: 15 ml Heparin Sodium (Porcine) (Heparin) 5,000 units SC BID [facility] Last Admin: 02/08/20 07:51 Dose: 5,000 units Hydrocortisone Sodium Succinate (Solu-Cortef) 50 mg IVP Q6HR [facility] Last Admin: 02/08/20 13:01 Dose: 50 mg Dextrose/Water (D5w) 1,000 mls @ 0 mls/hr IV .Q0M PRN PRN Reason: Hypoglycemia Insulin Glargine 10 units/ (Miscellaneous Medication) 0.1 mls @ 0 mls/hr SC QAM [facility] Last Admin: 02/08/20 07:51 Dose: 0.1 mls Cefepime HCl 0.5 gm/Miscellaneous Medication 1 each/ Sodium Chloride 100 mls @ 200 mls/hr IVPB 1500 [facility] Last Admin: 02/07/20 16:13 Dose: 100 mls Insulin Human Regular (Humulin R) 0 units SC .MILD SLIDING SCALE PRN PRN Reason: Mild Correctional Scale Last Admin: 02/08/20 10:08 Dose: 2 unit Iron/Minerals/Multivitamins (Theragran M) 1 tab PO DAILY [facility] Last Admin: 02/08/20 07:50 Dose: 1 tab Melatonin (Melatonin) 3 mg PO HS PRN PRN Reason: Insomnia Ondansetron HCl (Zofran Odt) 4 mg PO Q6H PRN PRN Reason: Nausea/Vomiting Ondansetron HCl (Zofran) 4 mg IVP Q6H PRN PRN Reason: Nausea/Vomiting Pantoprazole Sodium (Protonix) 40 mg IVP Q24H [facility] Last Admin: 02/07/20 20:24 Dose: 40 mg Sodium Bicarbonate (Bicarbonate, Sodium) 650 mg PER TUBE .PER PROTOCOL PRN PRN Reason: ENTERAL TUBE OCCLUSION Last Admin: 02/07/20 01:06 Dose: 650 mg Sodium Chloride (Flush - Normal Saline) 10 ml IVF Q12HR [facility] Last Admin: 02/08/20 09:50 Dose: 10 ml Sodium Chloride (Flush - Normal Saline) 10 ml IVF PRN PRN PRN Reason: Saline Flush Sodium Chloride (Normal Saline Pf) 10 ml FS PRN PRN PRN Reason: RECONSTITUTION Tamsulosin HCl (Flomax) 0.4 mg PO HS [facility] Last Admin: 02/07/20 20:25 Dose: 0.4 mg Zinc Sulfate (Zinc Sulfate) 220 mg PO DAILY [facility] Last Admin: 02/08/20 07:51 Dose: 220 mg Vital Signs & Weight: Vital Signs Temp Resp BP Pulse Ox 02/08/20 13:00 97.7 F 02/08/20 12:00 97.4 F L 28 H 02/08/20 10:00 97.4 F L 02/08/20 08:00 97.6 F 98 02/08/20 07:50 114/60 02/08/20 04:00 97.0 F L Admit Weight 163 lb 11.2 oz Weight 154 lb 5.177 oz - Physical Exam General: alert & oriented x3 HEENT: mucus membranes moist Neck: supple neck Cardiac: regular rate and rhythm, S1/S2 Lungs: decreased breath sounds Neuro: cranial nerve 2-12 intact Extremities: other: (generalized edema) Skin: clear - Labs Result Diagrams: 02/08/20 03:35 02/08/20 03:35 Troponin/CKMB CK-MB (CK-2) 1.5 ng/mL (0-6.6) 01/29/20 00:06 Troponin I 0.347 ng/mL (< 0.028) H* 01/31/20 18:12 - Telemetry Sinus rhythms and dysrhythmias: sinus rhythm - Assessment/Plan Assessment/Plan: 1. Acute on chronic systolic HR - on HD today; on Coreg 2. 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 COVID-19 pneumonia - off vent and on high flow 4. CAD with hx of CABG in 2004 - cath in 06/2019 showed grafts remain patent ; on Coreg, ASA, and Lipitor 5. hx of VT with s/p VT RFA x2 in 07/2019 - BiV AICD in place; Amiodarone was off since on 02/04/2020 6. Paroxysmal afib/Aflutter with hx of several RFA - on Coreg and ASA only due to chronic Anemia and hx of falls 7. ESRD with HD - managed by Dr Jo 8. Chronic Anemia - stable 9. Elevated LFT with elevated Ferritin MAR reviewed * Echo on 01/31/2020 with EF 10-15% (35-40% in 02/2019), grade III dd, severe LAE, mild-mod MR, and mild TR and HI
[2020-02-08] MEDS: Cefepime 0.5 GM, Admixture Fee 1 EACH in Sodium Chloride 0.9% 100 ML IVPB SCH (16:12)
[2020-02-08] MEDS: Atorvastatin Calcium 40 MG TAB PO SCH (20:02)
[2020-02-08] MEDS: Pantoprazole 40 MG VIAL IVP SCH (20:02)
[2020-02-08] MEDS: Tamsulosin HCl 0.4 MG CAP PO SCH (20:03)
[2020-02-08] MEDS: Aspirin Chewable 81 MG TAB PO SCH (20:03)
[2020-02-09 03:54] LABS: #Lymphocytes 0.2 thou/uL (1.20-3.40); #Monocytes 0.6 thou/uL (0.11-0.59); #Neutrophils 12.2 thou/uL (1.40-6.50); %Basophils 0.3 % (0.0-1.0); %Eosinophils 0.1 % (0.0-10.0); %Lymphocytes 1.5 % (21.0-51.0); %Monocytes 4.6 % (0.0-10.0); %Neutrophils 93.5 % (42.0-75.0); Hemoglobin 11.3 g/dL (14.0-18.0); Mean Corpuscular HGB CONC 35.1 g/dL (32.0-36.0); Mean Corpuscular Hemoglobin 34.9 pg (27.0-31.0); Mean Corpuscular Volume 99.4 fL (78.0-98.0); Mean Platelet Volume 10.1 fL (7.4-10.4); Platelet Count 138 thou/uL (130-400); Red Blood Cell (RBC) Count 3.24 mill/uL (4.70-6.10); White Blood Cell (WBC) Count 13.1 thou/uL (4.8-10.8)
[2020-02-09 04:14] LABS: Anion Gap 20 mmol/L (10-20); BUN (Urea Nitrogen) 87 mg/dL (8.4-25.7); CRP (Inflammatory) 5.77 mg/dL (= or < 0.5); Calc. Creatinine Clearance 18 mL/min (70-130); Calcium 8.1 mg/dL (7.8-10.44); Carbon Dioxide 23 mmol/L (23-31); Chloride 96 mmol/L (98-107); Estimated GFR-MDRD 18; Glucose 185 mg/dL (83-110); Sodium 134 mmol/L (136-145)
[2020-02-09] MEDS: Hydrocortisone Sod Succ/PF 100 mg/2 ml Vial IVP SCH ×3 (05:13→16:57)
[2020-02-09] MEDS: Insulin Regular 300 UNITS/3 ML VIAL SC PRN (05:29)
[2020-02-09] MEDS: Carvedilol 6.25 MG TAB PO SCH ×2 (08:10→21:04)
[2020-02-09] MEDS: Amiodarone 200 MG TAB PO SCH ×2 (08:10→21:06)
[2020-02-09] MEDS: Multivitamin W/ Minerals 1 TAB PO SCH (08:10)
[2020-02-09] MEDS: Ascorbic Acid 500 mg Chewable Tablet PO SCH (08:10)
[2020-02-09] MEDS: Insulin Glargine 10 UNITS in Pre-Filled Syringe 1 EACH SC SCH (08:11)
[2020-02-09] MEDS: Heparin 5,000 UNITS/ML VIAL SC SCH ×2 (08:11→21:06)
[2020-02-09] MEDS: Zinc Sulfate 220 MG CAP PO SCH (09:15)
--- NOTE | 2020-02-09 11:07 | PDOC.CPN ---
- Subjective Date: 02/09/20 Time: 11:00 - Review of Systems General: reports: weight/appetite/sleep changes Respiratory: reports: shortness of breath Cardiovascular: reports: orthopnea Musculoskeletal: reports: stiffness - Objective Allergies/Adverse Reactions: Allergies Allergy/AdvReac Type Severity Reaction Status Date / Time vancomycin Allergy Verified 08/27/19 01:18 Visit Medications: Current Medications Acetaminophen (Tylenol) 650 mg PO Q4H PRN PRN Reason: Headache/Fever/Mild Pain (1-3) Last Admin: 02/08/20 07:49 Dose: 650 mg Acetaminophen (Tylenol) 650 mg [place] Q4H PRN PRN Reason: Headache/Fever/Mild Pain (1-3) Alprazolam (Xanax) 0.125 mg PO BIDPRN PRN PRN Reason: Anxiety Last Admin: 02/08/20 03:54 Dose: 0.125 mg Amiodarone HCl (Cordarone) 200 mg PO BID [facility] Last Admin: 02/09/20 08:10 Dose: 200 mg Lipase/Protease/Amylase ([place] [id number]) 1 cap FS .PER PROTOCOL PRN PRN Reason: TUBE OCCLUSION PROTOCOL Last Admin: 02/07/20 01:06 Dose: 1 cap Ascorbic Acid (Vitamin C) 1,000 mg PO DAILY [facility] Last Admin: 02/09/20 08:10 Dose: 1,000 mg Aspirin (Aspirin Chewable) 81 mg PO HS [facility] Last Admin: 02/08/20 20:03 Dose: 81 mg Atorvastatin Calcium (Lipitor) 40 mg PO HS [facility] Last Admin: 02/08/20 20:02 Dose: 40 mg Calcium Carbonate (Tums) 1,000 mg PO Q4H PRN PRN Reason: Heartburn or Indigestion Carvedilol (Coreg) 6.25 mg PO BID [facility] Last Admin: 02/09/20 08:10 Dose: 6.25 mg Dextrose/Water (Dextrose 50%) 25 gm SLOW IVP PRN PRN PRN Reason: Hypoglycemia Glucagon (Glucagon) 1 mg IM PRN PRN PRN Reason: Hypoglycemia Guaifenesin (Organ-I Nr) 200 mg PO Q4H PRN PRN Reason: Congestion Guaifenesin/Dextromethorphan (Robitussin Dm) 15 ml PO Q4H PRN PRN Reason: Cough Last Admin: 01/31/20 05:16 Dose: 15 ml Heparin Sodium (Porcine) (Heparin) 5,000 units SC BID [facility] Last Admin: 02/09/20 08:11 Dose: 5,000 units Hydrocortisone Sodium Succinate (Solu-Cortef) 50 mg IVP Q6HR [facility] Last Admin: 02/09/20 05:13 Dose: 50 mg Dextrose/Water (D5w) 1,000 mls @ 0 mls/hr IV .Q0M PRN PRN Reason: Hypoglycemia Insulin Glargine 10 units/ (Miscellaneous Medication) 0.1 mls @ 0 mls/hr SC QAM [facility] Last Admin: 02/09/20 08:11 Dose: 0.1 mls Cefepime HCl 0.5 gm/Miscellaneous Medication 1 each/ Sodium Chloride 100 mls @ 200 mls/hr IVPB 1500 [facility] Last Admin: 02/08/20 16:12 Dose: 100 mls Insulin Human Regular (Humulin R) 0 units SC .MILD SLIDING SCALE PRN PRN Reason: Mild Correctional Scale Last Admin: 02/09/20 05:29 Dose: 2 unit Iron/Minerals/Multivitamins (Theragran M) 1 tab PO DAILY [facility] Last Admin: 02/09/20 08:10 Dose: 1 tab Melatonin (Melatonin) 3 mg PO HS PRN PRN Reason: Insomnia Last Admin: 02/08/20 20:02 Dose: 3 mg Ondansetron HCl (Zofran Odt) 4 mg PO Q6H PRN PRN Reason: Nausea/Vomiting Ondansetron HCl (Zofran) 4 mg IVP Q6H PRN PRN Reason: Nausea/Vomiting Pantoprazole Sodium (Protonix) 40 mg IVP Q24H [facility] Last Admin: 02/08/20 20:02 Dose: 40 mg Sodium Bicarbonate (Bicarbonate, Sodium) 650 mg PER TUBE .PER PROTOCOL PRN PRN Reason: ENTERAL TUBE OCCLUSION Last Admin: 02/07/20 01:06 Dose: 650 mg Sodium Chloride (Flush - Normal Saline) 10 ml IVF Q12HR [facility] Last Admin: 02/09/20 09:16 Dose: 10 ml Sodium Chloride (Flush - Normal Saline) 10 ml IVF PRN PRN PRN Reason: Saline Flush Sodium Chloride (Normal Saline Pf) 10 ml FS PRN PRN PRN Reason: RECONSTITUTION Tamsulosin HCl (Flomax) 0.4 mg PO HS [facility] Last Admin: 02/08/20 20:03 Dose: 0.4 mg Zinc Sulfate (Zinc Sulfate) 220 mg PO DAILY [facility] Last Admin: 02/09/20 09:15 Dose: 220 mg Vital Signs & Weight: Vital Signs Temp BP Pulse Ox 02/09/20 08:10 136/56 L 02/09/20 08:00 97.5 F L 02/09/20 07:46 98 02/09/20 04:00 98.2 F 02/09/20 00:21 97 02/09/20 00:00 98.2 F Admit Weight 163 lb 11.2 oz Weight 160 lb 0.889 oz - Quality Measures Condition: Heart Failure CV meds: Beta [place]: Yes, CHRISTINE/ARB: No (CKD on dialysis), Statin: Yes, ASA: Yes - Physical Exam HEENT: normocephaly Neck: supple neck Cardiac: regular rate and rhythm Lungs: bibasilar rales, rales - left, rales - right, scattered rhonchi, oxygen Neuro: weakness Abdomen: soft, non-tender Extremities: no clubbing, no edema Musculoskeletal: decreased range of motion, other (generalized weakness/ deconditioned) - Labs Result Diagrams: 02/09/20 03:09 02/09/20 03:09 Troponin/CKMB CK-MB (CK-2) 1.5 ng/mL (0-6.6) 01/29/20 00:06 Troponin I 0.347 ng/mL (< 0.028) H* 01/31/20 18:12 - Assessment/Plan Assessment/Plan: 1. Acute on chronic systolic HR - on HD today; on Coreg 2. 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 COVID-19 pneumonia - off vent and on high flow 4. CAD with hx of CABG in 2004 - cath in 06/2019 showed grafts remain patent ; on Coreg, ASA, and Lipitor 5. hx of VT with s/p VT RFA x2 in 07/2019 - BiV AICD in place; Amiodarone was off since on 02/04/2020 6. Paroxysmal afib/Aflutter with hx of several RFA - on Coreg and ASA only due to chronic Anemia and hx of falls 7. ESRD with HD - managed by Dr Jo 8. Chronic Anemia - stable MAR reviewed * Echo on 01/31/2020 with EF 10-15% (35-40% in 02/2019), grade III dd, severe LAE , mild-mod MR, and mild TR and AZ
--- NOTE | 2020-02-09 14:36 | PRG ---
DATE OF SERVICE: 02/09/2020 SUBJECTIVE: Mr. Venegas is refusing to eat or drink anything. He says he will once he is not short of breath. I have explained to him that it will be 7 to 10 days for his less short of breath most likely. OBJECTIVE: VITAL SIGNS: He is afebrile. He is on a high-flow cannula. Blood pressure 119/72, heart rate 70. LUNGS: Remarkable for coarse equal breath sounds. HEART: Regular rhythm. ABDOMEN: Soft. He has no signs of muscle fatigue. LABORATORY DATA: White count 13.1, hemoglobin 11.3, platelets 138. Sodium 134, potassium 5, chloride 96, bicarb 23, BUN 87, creatinine 3.34. Creatinine is 4.27 yesterday. IMPRESSION: COVID pneumonia, improving, status post mechanical ventilation. He does not recall being ventilated. I have explained to him that he needs to drink some Nepro supplements to keep the calories more muscle fatigue. He does have chronic kidney disease and requires intermittent dialysis. On top of that, has an ejection fraction of 10%. Continue with current management. He will remain in the critical care unit for now. Job ID: [id number]
--- NOTE | 2020-02-09 14:40 | PDOC.HOSPP ---
- Subjective Encounter Date: 02/09/20 Encounter Time: 11:30 Subjective: On high flow oxygen doing well. P.o. intake still not adequate. No bowel movement this morning. Stable to transfer to the [facility]. - Objective Vital Signs & Weight: Vital Signs (12 hours) Temp BP Pulse Ox 02/09/20 12:00 98.0 F 02/09/20 11:00 98.0 F 02/09/20 08:10 136/56 L 02/09/20 08:00 97.5 F L 02/09/20 07:46 98 02/09/20 04:00 98.2 F Weight Admit Weight 163 lb 11.2 oz Weight 160 lb 0.889 oz Most Recent Monitor Data Heart Rate from ECG 70 NIBP 120/54 NIBP BP-Mean 76 Respiration from ECG 19 SpO2 97 I&O: 02/08/20 02/09/20 02/10/20 06:59 06:59 06:59 Intake Total 1393 983 210 Output Total 71 28 3 Balance 1322 955 207 Result Diagrams: 02/09/20 03:09 02/09/20 03:09 Additional Labs: Accuchecks 02/09/20 02/09/20 02/09/20 11:30 08:39 05:24 POC Glucose 124 H 122 H 165 H 02/08/20 02/08/20 02/08/20 20:15 15:57 10:08 POC Glucose 165 H 135 H 193 H 02/08/20 05:41 POC Glucose 178 H Hospitalist ROS - Medication Medications: Active Medications Generic Name Dose Route Start Last Admin Trade Name Freq PRN Reason Stop Dose Admin Acetaminophen 650 mg 01/29/20 02:16 02/08/20 07:49 Tylenol PO 650 mg Q4H PRN Administration Headache/Fever/Mild Pain (1-3) Alprazolam 0.125 mg 02/07/20 15:51 02/08/20 03:54 Xanax PO 0.125 mg BIDPRN PRN Administration Anxiety Amiodarone HCl 200 mg 02/07/20 09:00 02/09/20 08:10 Cordarone PO 200 mg BID ROMAN Administration Lipase/Protease/Amylase 1 cap 02/06/20 23:47 02/07/20 01:06 Roopa Gilmore [id number] FS 1 cap .PER PROTOCOL PRN Administration TUBE OCCLUSION PROTOCOL Ascorbic Acid 1,000 mg 01/30/20 09:00 02/09/20 08:10 Vitamin C PO 1,000 mg DAILY ROMAN Administration Aspirin 81 mg 01/29/20 21:00 02/08/20 20:03 Aspirin Chewable PO 81 mg HS ROMAN Administration Atorvastatin Calcium 40 mg 02/04/20 21:00 02/08/20 20:02 Lipitor PO 40 mg HS ROMAN Administration Carvedilol 6.25 mg 02/06/20 21:00 02/09/20 08:10 Coreg PO 6.25 mg BID ROMAN Administration Guaifenesin/Dextromethorphan 15 ml 01/29/20 02:16 01/31/20 05:16 Robitussin Dm PO 15 ml Q4H PRN Administration Cough Heparin Sodium (Porcine) 5,000 units 01/29/20 21:00 02/09/20 08:11 Heparin SC 5,000 units BID ROMAN Administration Hydrocortisone Sodium Succinate 50 mg 02/08/20 12:00 02/09/20 11:16 Solu-Cortef IVP 50 mg Q6HR ROMAN Administration Insulin Glargine 10 units/ 0.1 mls @ 0 mls/hr 02/05/20 09:00 02/09/20 08:11 Miscellaneous Medication SC 0.1 mls QAM ROMAN Administration Cefepime HCl 0.5 gm/ 100 mls @ 200 mls/hr 02/06/20 15:00 02/08/20 16:12 Miscellaneous Medication 1 IVPB 100 mls each/ Sodium Chloride 1500 ROMAN Administration Insulin Human Regular 0 units 01/29/20 03:58 02/09/20 05:29 Humulin R SC 2 unit .MILD SLIDING SCALE PRN Administration Mild Correctional Scale Iron/Minerals/Multivitamins 1 tab 01/30/20 09:00 02/09/20 08:10 Theragran M PO 1 tab DAILY ROMAN Administration Melatonin 3 mg 02/07/20 15:51 02/08/20 20:02 Melatonin PO 3 mg HS PRN Administration Insomnia Pantoprazole Sodium 40 mg 02/05/20 20:00 02/08/20 20:02 Protonix IVP 40 mg Q24H ROMAN Administration Sodium Bicarbonate 650 mg 02/06/20 23:47 02/07/20 01:06 Bicarbonate, Sodium PER TUBE 650 mg .PER PROTOCOL PRN Administration ENTERAL TUBE OCCLUSION Sodium Chloride 10 ml 02/01/20 21:00 02/09/20 09:16 Flush - Normal Saline IVF 10 ml Q12HR ROMAN Administration Tamsulosin HCl 0.4 mg 01/29/20 21:00 02/08/20 20:03 Flomax PO 0.4 mg HS ROMAN Administration Zinc Sulfate 220 mg 01/30/20 09:00 02/09/20 09:15 Zinc Sulfate PO 220 mg DAILY ROMAN Administration - Exam General Appearance: NAD, awake alert Eye: PERRL ENT: normocephalic atraumatic Neck: supple Heart: RRR Respiratory: normal chest expansion Gastrointestinal: normal bowel sounds Neurological: no focal deficits Psychiatric: A&O x 3 Hosp A/P - Plan Cardiac arrest Code(s): I46.9 - CARDIAC ARREST, CAUSE UNSPECIFIED Status: Acute Plan: s/p arrest with ROSC, likely multifactorial process, EF 10% by Echo (2) Acute respiratory failure with hypoxia Code(s): J96.01 - ACUTE RESPIRATORY FAILURE WITH HYPOXIA Status: Acute Plan: extubated (02/07); on HFNC; CXR showing diffuse multifocal opacities, unchanged per PCCM, leave in ICU for time being (02/07) (3) Acute on chronic systolic (congestive) heart failure Code(s): I50.23 - ACUTE ON CHRONIC SYSTOLIC (CONGESTIVE) HEART FAILURE Status : Acute borderline hypotension; reduced coreg (02/06); cardiology onboard (4) COVID-19 Code(s): U07.1 - COVID-19 Status: Acute Plan: Continue steroids, stop ABx as per PCCM (6) ESRD (end stage renal disease) on dialysis Code(s): N18.6 - END STAGE RENAL DISEASE; Z99.2 - DEPENDENCE ON RENAL DIALYSIS Status: Chronic Plan: HD per nephrology; last session 02/07 Transfer to intermediate care Wean off from high flow oxygen but maintaining the sats around upper 90. Encourage more p.o. intake. Stool softeners as needed. Physical therapy consult once he is improved in his oxygen status and transitioned to nasal cannula for supplement.
[2020-02-09] MEDS ORDERED: Senokot S 8.6-50 MG TAB PO PRN (14:42)
[2020-02-09] MEDS: Cefepime 0.5 GM, Admixture Fee 1 EACH in Sodium Chloride 0.9% 100 ML IVPB SCH (16:57)
[2020-02-09] MEDS: Atorvastatin Calcium 40 MG TAB PO SCH (21:05)
[2020-02-09] MEDS: ALPRAZolam 0.25 MG TAB PO PRN (21:05)
[2020-02-09] MEDS: Aspirin Chewable 81 MG TAB PO SCH (21:05)
[2020-02-09] MEDS: Tamsulosin HCl 0.4 MG CAP PO SCH (21:06)
[2020-02-09] MEDS: Pantoprazole 40 MG VIAL IVP SCH (21:09)
[2020-02-10] MEDS: Hydrocortisone Sod Succ/PF 100 mg/2 ml Vial IVP SCH ×4 (02:06→17:31)
[2020-02-10 03:35] LABS: #Basophils 0.1 thou/uL (0.0-0.2); #Lymphocytes 0.2 thou/uL (1.20-3.40); #Monocytes 0.7 thou/uL (0.11-0.59); #Neutrophils 14.1 thou/uL (1.40-6.50); %Basophils 0.6 % (0.0-1.0); %Eosinophils 0.1 % (0.0-10.0); %Lymphocytes 1.4 % (21.0-51.0); %Monocytes 4.5 % (0.0-10.0); %Neutrophils 93.5 % (42.0-75.0); Hemoglobin 11.1 g/dL (14.0-18.0); Mean Corpuscular Hemoglobin 34.7 pg (27.0-31.0); Mean Corpuscular Volume 99.2 fL (78.0-98.0); Mean Platelet Volume 10.3 fL (7.4-10.4); Platelet Count 134 thou/uL (130-400); RBC Distribution Width 13.1 % (11.5-14.5); Red Blood Cell (RBC) Count 3.19 mill/uL (4.70-6.10); White Blood Cell (WBC) Count 15.1 thou/uL (4.8-10.8)
[2020-02-10 03:55] LABS: Anion Gap 24 mmol/L (10-20); Calc. Creatinine Clearance 14 mL/min (70-130); Calcium 8.5 mg/dL (7.8-10.44); Carbon Dioxide 22 mmol/L (23-31); Chloride 95 mmol/L (98-107); Estimated GFR-MDRD 13; Glucose 93 mg/dL (83-110); Potassium 6.1 mmol/L (3.5-5.1); Sodium 135 mmol/L (136-145)
[2020-02-10 04:06] LABS: BUN (Urea Nitrogen) 120 mg/dL (8.4-25.7)
[2020-02-10] MEDS: Multivitamin W/ Minerals 1 TAB PO SCH (10:07)
[2020-02-10] MEDS: Ascorbic Acid 500 mg Chewable Tablet PO SCH (10:07)
[2020-02-10] MEDS: Amiodarone 200 MG TAB PO SCH ×2 (10:07→20:52)
[2020-02-10] MEDS: Carvedilol 6.25 MG TAB PO SCH ×2 (10:07→20:52)
[2020-02-10] MEDS: Heparin 5,000 UNITS/ML VIAL SC SCH ×2 (10:08→20:53)
[2020-02-10] MEDS: Zinc Sulfate 220 MG CAP PO SCH (10:15)
[2020-02-10] MEDS ORDERED: Heparin 10,000 UNITS/ 10 ML VIAL ONE (11:09)
--- NOTE | 2020-02-10 11:25 | PRG ---
DATE OF SERVICE: 02/10/2020 SUBJECTIVE: Mr. Venegas is eating more and drinking the Nepro now. He still has no recollection of being mechanically ventilated. OBJECTIVE: VITAL SIGNS: he is still on high-flow 90%. Blood pressure 132/71. LUNGS: Unchanged. HEART: Unchanged. ABDOMEN: Unchanged. IMPRESSION AND PLAN: COVID pneumonia, clinically stable. Plan, continue weaning FiO2. Continue nutritional support. Other problems include renal failure and severe cardiomyopathy. Intake and output were positive 207. He only had 3 mL recorded. I am not sure his oral supplement, were recording only 50 mL, this is accurate for yesterday. He is taking Nepro this morning. Job ID: [id number]
[2020-02-10] MEDS: Insulin Glargine 10 UNITS in Pre-Filled Syringe 1 EACH SC SCH (11:34)
--- NOTE | 2020-02-10 13:56 | PDOC.HOSPP ---
- Subjective Encounter Date: 02/10/20 Encounter Time: 11:55 Subjective: Patient is sitting in the chair. He has a lunch in front of him. He is not able to have much. He is on high flow oxygen with his sats at 97 to 94%.. - Objective Vital Signs & Weight: Vital Signs (12 hours) BP Pulse Ox 02/10/20 10:07 143/85 H 02/10/20 07:01 96 Weight Admit Weight 163 lb 11.2 oz Weight 160 lb 0.889 oz Most Recent Monitor Data Heart Rate from ECG 70 NIBP 124/79 NIBP BP-Mean 94 Respiration from ECG 27 SpO2 94 I&O: 02/09/20 02/10/20 02/11/20 06:59 06:59 06:59 Intake Total 983 210 Output Total 28 3 Balance 955 207 Result Diagrams: 02/10/20 03:13 02/10/20 03:13 Additional Labs: Accuchecks 02/09/20 17:14 POC Glucose 147 H Hospitalist ROS - Medication Medications: Active Medications Generic Name Dose Route Start Last Admin Trade Name Freq PRN Reason Stop Dose Admin Acetaminophen 650 mg 01/29/20 02:16 02/08/20 07:49 Tylenol PO 650 mg Q4H PRN Administration Headache/Fever/Mild Pain (1-3) Alprazolam 0.125 mg 02/07/20 15:51 02/09/20 21:05 Xanax PO 0.125 mg BIDPRN PRN Administration Anxiety Amiodarone HCl 200 mg 02/07/20 09:00 02/10/20 10:07 Cordarone PO 200 mg BID ROMAN Administration Lipase/Protease/Amylase 1 cap 02/06/20 23:47 02/07/20 01:06 Roopa Gilmore [id number] FS 1 cap .PER PROTOCOL PRN Administration TUBE OCCLUSION PROTOCOL Ascorbic Acid 1,000 mg 01/30/20 09:00 02/10/20 10:07 Vitamin C PO 1,000 mg DAILY ROMAN Administration Aspirin 81 mg 01/29/20 21:00 02/09/20 21:05 Aspirin Chewable PO 81 mg HS ROMAN Administration Atorvastatin Calcium 40 mg 02/04/20 21:00 02/09/20 21:05 Lipitor PO 40 mg HS ROMAN Administration Carvedilol 6.25 mg 02/06/20 21:00 02/10/20 10:07 Coreg PO 6.25 mg BID ROMAN Administration Guaifenesin/Dextromethorphan 15 ml 01/29/20 02:16 01/31/20 05:16 Robitussin Dm PO 15 ml Q4H PRN Administration Cough Heparin Sodium (Porcine) 5,000 units 01/29/20 21:00 02/10/20 10:08 Heparin SC 5,000 units BID ROMAN Administration Hydrocortisone Sodium Succinate 50 mg 02/08/20 12:00 02/10/20 13:52 Solu-Cortef IVP 50 mg Q6HR ROMAN Administration Insulin Glargine 10 units/ 0.1 mls @ 0 mls/hr 02/05/20 09:00 02/10/20 11:34 Miscellaneous Medication SC Not Given QAM ROMAN Cefepime HCl 0.5 gm/ 100 mls @ 200 mls/hr 02/06/20 15:00 02/09/20 16:57 Miscellaneous Medication 1 IVPB 100 mls each/ Sodium Chloride 1500 ROMAN Administration Insulin Human Regular 0 units 01/29/20 03:58 02/09/20 05:29 Humulin R SC 2 unit .MILD SLIDING SCALE PRN Administration Mild Correctional Scale Iron/Minerals/Multivitamins 1 tab 01/30/20 09:00 02/10/20 10:07 Theragran M PO 1 tab DAILY ROMAN Administration Melatonin 3 mg 02/07/20 15:51 02/08/20 20:02 Melatonin PO 3 mg HS PRN Administration Insomnia Pantoprazole Sodium 40 mg 02/05/20 20:00 02/09/20 21:09 Protonix IVP 40 mg Q24H ROMAN Administration Senna/Docusate Sodium 2 tab 02/09/20 14:42 02/10/20 10:06 Senokot S PO 2 tab BID PRN Administration Constipation Sodium Bicarbonate 650 mg 02/06/20 23:47 02/07/20 01:06 Bicarbonate, Sodium PER TUBE 650 mg .PER PROTOCOL PRN Administration ENTERAL TUBE OCCLUSION Sodium Chloride 10 ml 02/01/20 21:00 02/10/20 10:12 Flush - Normal Saline IVF 10 ml Q12HR ROMAN Administration Tamsulosin HCl 0.4 mg 01/29/20 21:00 02/09/20 21:06 Flomax PO 0.4 mg HS ROMAN Administration Zinc Sulfate 220 mg 01/30/20 09:00 02/10/20 10:15 Zinc Sulfate PO 220 mg DAILY ROMAN Administration - Exam General Appearance: NAD, awake alert Eye: PERRL ENT: normocephalic atraumatic Neck: supple Heart: RRR Respiratory: normal chest expansion Neurological: no focal deficits Psychiatric: A&O x 3 Hosp A/P - Plan Cardiac arrest Code(s): I46.9 - CARDIAC ARREST, CAUSE UNSPECIFIED Status: Acute Plan: s/p arrest with ROSC, likely multifactorial process, EF 10% by Echo (2) Acute respiratory failure with hypoxia Code(s): J96.01 - ACUTE RESPIRATORY FAILURE WITH HYPOXIA Status: Acute Plan: extubated (02/07); on HFNC; CXR showing diffuse multifocal opacities, unchanged per PCCM, leave in ICU for time being (02/07) (3) Acute on chronic systolic (congestive) heart failure Code(s): I50.23 - ACUTE ON CHRONIC SYSTOLIC (CONGESTIVE) HEART FAILURE Status : Acute borderline hypotension; reduced coreg (02/06); cardiology onboard (4) COVID-19 Code(s): U07.1 - COVID-19 Status: Acute Plan: Continue steroids, stop ABx as per PCCM (6) ESRD (end stage renal disease) on dialysis Code(s): N18.6 - END STAGE RENAL DISEASE; Z99.2 - DEPENDENCE ON RENAL DIALYSIS Status: Chronic Plan: HD per nephrology; last session 02/07 Transfer to intermediate care Wean off from high flow oxygen but maintaining the sats around upper 90. Encourage more p.o. intake. Stool softeners as needed. Physical therapy consult once he is improved in his oxygen status and transitioned to nasal cannula for supplement.
[2020-02-10] MEDS: Cefepime 0.5 GM, Admixture Fee 1 EACH in Sodium Chloride 0.9% 100 ML IVPB SCH (15:45)
[2020-02-10] MEDS: Atorvastatin Calcium 40 MG TAB PO SCH (20:52)
[2020-02-10] MEDS: Tamsulosin HCl 0.4 MG CAP PO SCH (20:52)
[2020-02-10] MEDS: Pantoprazole 40 MG VIAL IVP SCH (20:52)
[2020-02-10] MEDS: Aspirin Chewable 81 MG TAB PO SCH (20:52)
[2020-02-11] MEDS: Hydrocortisone Sod Succ/PF 100 mg/2 ml Vial IVP SCH ×5 (01:24→22:58)
[2020-02-11 03:37] LABS: #Lymphocytes 0.9 thou/uL (1.20-3.40); #Monocytes 0.6 thou/uL (0.11-0.59); #Neutrophils 13.6 thou/uL (1.40-6.50); %Basophils 0.2 % (0.0-1.0); %Eosinophils 0.1 % (0.0-10.0); %Monocytes 3.8 % (0.0-10.0); %Neutrophils 89.9 % (42.0-75.0); Hemoglobin 10.6 g/dL (14.0-18.0); Mean Corpuscular HGB CONC 34.5 g/dL (32.0-36.0); Mean Corpuscular Hemoglobin 34.2 pg (27.0-31.0); Mean Corpuscular Volume 99.2 fL (78.0-98.0); Mean Platelet Volume 10.2 fL (7.4-10.4); Platelet Count 142 thou/uL (130-400); RBC Distribution Width 13.2 % (11.5-14.5); White Blood Cell (WBC) Count 15.1 thou/uL (4.8-10.8)
[2020-02-11 03:51] LABS: Anion Gap 21 mmol/L (10-20); BUN (Urea Nitrogen) 86 mg/dL (8.4-25.7); Calc. Creatinine Clearance 18 mL/min (70-130); Calcium 8.2 mg/dL (7.8-10.44); Carbon Dioxide 24 mmol/L (23-31); Chloride 97 mmol/L (98-107); Estimated GFR-MDRD 17; Glucose 87 mg/dL (83-110); Potassium 5.3 mmol/L (3.5-5.1); Sodium 137 mmol/L (136-145)
[2020-02-11] MEDS: Multivitamin W/ Minerals 1 TAB PO SCH (08:13)
[2020-02-11] MEDS: Insulin Glargine 10 UNITS in Pre-Filled Syringe 1 EACH SC SCH ×2 (08:13→13:56)
[2020-02-11] MEDS: Ascorbic Acid 500 mg Chewable Tablet PO SCH (08:13)
[2020-02-11] MEDS: Carvedilol 6.25 MG TAB PO SCH ×2 (08:14→22:04)
[2020-02-11] MEDS: Amiodarone 200 MG TAB PO SCH ×2 (08:14→22:03)
[2020-02-11] MEDS: Zinc Sulfate 220 MG CAP PO SCH (08:15)
[2020-02-11] MEDS: Heparin 5,000 UNITS/ML VIAL SC SCH ×2 (08:15→21:40)
[2020-02-11 08:16] VITALS: BP 118/59
--- NOTE | 2020-02-11 11:56 | PRG ---
DATE OF SERVICE: 02/11/2020 SUBJECTIVE: The patient remains in the IMCU on high-flow oxygen. All things considered, he is doing quite well. OBJECTIVE: VITAL SIGNS: His O2 saturations in the low 90s on 70% oxygen, pulse is 70, and blood pressure 114/41. HEENT: Unremarkable. NECK: No JVD. CHEST: Clear anteriorly. CARDIAC: S1 and S2. Regular. ABDOMEN: Soft. EXTREMITIES: No edema. LABORATORY: Sodium 137, potassium 5.3, chloride 97, CO2 of 24, BUN 86, creatinine 3.5, glucose 87. Ferritin level 7561. C-reactive protein 16.4. White blood cell count 15.5, hematocrit 30.7, and platelet count 142. ASSESSMENT: 1. COVID-19 pneumonia with acute respiratory failure. He is status post intubation and mechanical ventilation, but now requiring high-flow oxygen. 2. Ejection fraction 10%. 3. Chronic renal failure, requiring hemodialysis. PLAN: Continue steroids, anticoagulation with heparin, and high-flow oxygen. My assumption would be that he would need steroids for quite some time. I will go ahead and discontinue the serial ferritin and C-reactive protein levels as I do not see any utility at this point. Job ID: [id number]
[2020-02-11 12:05] VITALS: BMI 21.7
[2020-02-11] MEDS: Insulin Regular 300 UNITS/3 ML VIAL SC PRN (12:20)
--- NOTE | 2020-02-11 12:39 | PDOC.HOSPP ---
- Subjective Encounter Date: 02/11/20 Encounter Time: 10:55 Subjective: Patient having mild respiratory distress -visibly breathing hard -on high flow oxygen. Status post ventilation for COVID pneumonia-on stress dose steroid now. Had hemodialysis yesterday. 1-1/2 L of fluid removed. Discussed with RN. - Objective Vital Signs & Weight: Vital Signs (12 hours) BP Pulse Ox 02/11/20 08:14 118/59 L 02/11/20 08:00 92 L Weight Admit Weight 163 lb 11.2 oz Weight 160 lb 0.889 oz Most Recent Monitor Data Heart Rate from ECG 70 NIBP 107/62 NIBP BP-Mean 77 Respiration from ECG 22 SpO2 93 I&O: 02/10/20 02/11/20 02/12/20 06:59 06:59 06:59 Intake Total 210 100 Output Total 3 12 Balance 207 88 Result Diagrams: 02/11/20 03:18 02/11/20 03:18 Additional Labs: Accuchecks 02/11/20 02/10/20 02/10/20 06:10 21:10 15:56 POC Glucose 103 96 156 H 02/10/20 06:02 POC Glucose 97 Hospitalist ROS - Medication Medications: Active Medications Generic Name Dose Route Start Last Admin Trade Name Freq PRN Reason Stop Dose Admin Acetaminophen 650 mg 01/29/20 02:16 02/08/20 07:49 Tylenol PO 650 mg Q4H PRN Administration Headache/Fever/Mild Pain (1-3) Alprazolam 0.125 mg 02/07/20 15:51 02/09/20 21:05 Xanax PO 0.125 mg BIDPRN PRN Administration Anxiety Amiodarone HCl 200 mg 02/07/20 09:00 02/11/20 08:14 Cordarone PO 200 mg BID ROMAN Administration Lipase/Protease/Amylase 1 cap 02/06/20 23:47 02/07/20 01:06 Roopa Gilmore [id number] FS 1 cap .PER PROTOCOL PRN Administration TUBE OCCLUSION PROTOCOL Ascorbic Acid 1,000 mg 01/30/20 09:00 02/11/20 08:13 Vitamin C PO 1,000 mg DAILY ROMAN Administration Aspirin 81 mg 01/29/20 21:00 02/10/20 20:52 Aspirin Chewable PO 81 mg HS ROMAN Administration Atorvastatin Calcium 40 mg 02/04/20 21:00 02/10/20 20:52 Lipitor PO 40 mg HS ROMAN Administration Carvedilol 6.25 mg 02/06/20 21:00 02/11/20 08:14 Coreg PO 6.25 mg BID ROMAN Administration Guaifenesin/Dextromethorphan 15 ml 01/29/20 02:16 01/31/20 05:16 Robitussin Dm PO 15 ml Q4H PRN Administration Cough Heparin Sodium (Porcine) 5,000 units 01/29/20 21:00 02/11/20 08:15 Heparin SC 5,000 units BID ROMAN Administration Hydrocortisone Sodium Succinate 50 mg 02/08/20 12:00 02/11/20 11:39 Solu-Cortef IVP 50 mg Q6HR ROMAN Administration Insulin Glargine 10 units/ 0.1 mls @ 0 mls/hr 02/05/20 09:00 02/11/20 08:13 Miscellaneous Medication SC Not Given QAM ROMAN Cefepime HCl 0.5 gm/ 100 mls @ 200 mls/hr 02/06/20 15:00 02/10/20 15:45 Miscellaneous Medication 1 IVPB 100 mls each/ Sodium Chloride 1500 ROMAN Administration Insulin Human Regular 0 units 01/29/20 03:58 02/09/20 05:29 Humulin R SC 2 unit .MILD SLIDING SCALE PRN Administration Mild Correctional Scale Iron/Minerals/Multivitamins 1 tab 01/30/20 09:00 02/11/20 08:13 Theragran M PO 1 tab DAILY ROMAN Administration Melatonin 3 mg 02/07/20 15:51 02/08/20 20:02 Melatonin PO 3 mg HS PRN Administration Insomnia Pantoprazole Sodium 40 mg 02/05/20 20:00 02/10/20 20:52 Protonix IVP 40 mg Q24H ROMAN Administration Senna/Docusate Sodium 2 tab 02/09/20 14:42 02/10/20 10:06 Senokot S PO 2 tab BID PRN Administration Constipation Sodium Bicarbonate 650 mg 02/06/20 23:47 02/07/20 01:06 Bicarbonate, Sodium PER TUBE 650 mg .PER PROTOCOL PRN Administration ENTERAL TUBE OCCLUSION Sodium Chloride 10 ml 02/01/20 21:00 02/11/20 08:15 Flush - Normal Saline IVF 10 ml Q12HR ROMAN Administration Tamsulosin HCl 0.4 mg 01/29/20 21:00 02/10/20 20:52 Flomax PO 0.4 mg HS ROMAN Administration Zinc Sulfate 220 mg 01/30/20 09:00 02/11/20 08:15 Zinc Sulfate PO 220 mg DAILY ROMAN Administration - Exam General Appearance: awake alert, ill appearing Eye: PERRL ENT: normocephalic atraumatic Neck: supple Neurological: no focal deficits Psychiatric: A&O x 3 Hosp A/P - Plan Cardiac arrest Code(s): I46.9 - CARDIAC ARREST, CAUSE UNSPECIFIED Status: Acute Plan: s/p arrest with ROSC, likely multifactorial process, EF 10% by Echo (2) Acute respiratory failure with hypoxia Code(s): J96.01 - ACUTE RESPIRATORY FAILURE WITH HYPOXIA Status: Acute Plan: extubated (02/07); on HFNC; CXR showing diffuse multifocal opacities, unchanged per PCC, leave in ICU for time being (02/07) (3) Acute on chronic systolic (congestive) heart failure Code(s): I50.23 - ACUTE ON CHRONIC SYSTOLIC (CONGESTIVE) HEART FAILURE Status : Acute borderline hypotension; reduced coreg (02/06); cardiology onboard (4) COVID-19 Code(s): U07.1 - COVID-19 Status: Acute Plan: Continue steroids, stop ABx as per PCC (6) ESRD (end stage renal disease) on dialysis Code(s): N18.6 - END STAGE RENAL DISEASE; Z99.2 - DEPENDENCE ON RENAL DIALYSIS Status: Chronic Plan: HD per nephrology; last session 02/07 Transfer to intermediate care Wean off from high flow oxygen but maintaining the sats around upper 90. Encourage more p.o. intake. Stool softeners as needed. Physical therapy consult once he is improved in his oxygen status and transitioned to nasal cannula for supplement. 7th Continue to provide the supportive care -on stress dose steroid. End stage renal disease on hemodialysis -Continue the scheduled dialysis Severe ischemic cardiomyopathy with EF of 15%--- grade 3 diastolic dysfunction and severe left atrial enlargement and moderate mitral regurgitation History of biventricular AICD placement History of V. tach Paroxysmal atrial fibrillation with a history of several RFA -Currently on amiodarone aspirin Lipitor and Coreg low-dose Hyperglycemia/mild --blood glucose in the 90 range I will Decrease the long-acting Lantus and just follow with the sliding scale for now. Expect blood glucose trending up - given he is on hydrocortisone.
[2020-02-11] MEDS: Cefepime 0.5 GM, Admixture Fee 1 EACH in Sodium Chloride 0.9% 100 ML IVPB SCH (17:23)
[2020-02-11 18:44] VITALS: TEMP 97.9
[2020-02-11] MEDS ORDERED: Albuterol Sulfate 2.5 mg/3 ml Neb NEB SCH (19:30)
[2020-02-11 19:39] LABS: Base Excess (BEa) -3.9 mEq/L (-2.0 to +3.0); CO2 Tension 27.5 mmHg (35.0-45.0); Carboxyhemoglobin (COHb) 0.3 gm% (0.0-3.0); Hemoglobin (Hb) 10.5 g/dL (14.0-18.0); Potassium - ABG Lab 5.81 mmol/L (3.70-5.30); pH, Arterial 7.46 (7.35-7.45)
[2020-02-11 19:47] LABS: O2 Tension (PaO2), arterial 55.9 mmHg (> 70.0)
[2020-02-11 19:48] LABS: ALV-art Gradient 394.565 (0-20)
[2020-02-11] MEDS ORDERED: Albuterol 200 PUFF (6.7GM INHALER) INH PRN (19:49)
[2020-02-11] MEDS ORDERED: Albuterol 200 PUFF (6.7GM INHALER) INH SCH (20:00)
--- NOTE | 2020-02-11 20:43 | RAD ---
CHEST ONE VIEW: History: Shortness of breath, pneumonia, respiratory failure. FINDINGS: In comparison to the 02-08-2020 study, the extensive parenchymal lung changes are stable. Heart size is enlarged. No new process identified. IMPRESSION: Stable chest. POS: OFF
[2020-02-11] MEDS ORDERED: Furosemide 100 MG/10 ML VIAL SLOW IVP SCH (20:45)
[2020-02-11 21:01] LABS: Lactic Acid 0.7 mmol/L (0.5-2.2)
[2020-02-11 21:05] LABS: Anion Gap 25 mmol/L (10-20); BUN (Urea Nitrogen) 117 mg/dL (8.4-25.7); Calc. Creatinine Clearance 14 mL/min (70-130); Calcium 7.9 mg/dL (7.8-10.44); Carbon Dioxide 20 mmol/L (23-31); Chloride 96 mmol/L (98-107); Estimated GFR-MDRD 14; Glucose 77 mg/dL (83-110); Magnesium 2.6 mg/dL (1.6-2.6); Sodium 135 mmol/L (136-145)
[2020-02-11] MEDS: Pantoprazole 40 MG VIAL IVP SCH (21:40)
[2020-02-11] MEDS: Aspirin Chewable 81 MG TAB PO SCH (22:03)
[2020-02-11] MEDS: Atorvastatin Calcium 40 MG TAB PO SCH (22:04)
[2020-02-11] MEDS: Tamsulosin HCl 0.4 MG CAP PO SCH (22:04)
[2020-02-11] MEDS ORDERED: Lorazepam 2 MG/ML VIAL SLOW IVP SCH (23:00)
[2020-02-11 23:16] LABS: Actual Bicarbonate (HCO3a) 22.1 mEq/L (22-28); Base Excess (BEa) -2.6 mEq/L (-2.0 to +3.0); CO2 Tension 38.1 mmHg (35.0-45.0); Calcium, Ionized (arterial) 0.99 mmol/L (1.12-1.30); Carboxyhemoglobin (COHb) 0.2 gm% (0.0-3.0); Hemoglobin (Hb) 10.4 g/dL (14.0-18.0); O2 Tension (PaO2), arterial 66.7 mmHg (> 70.0); Potassium - ABG Lab 6.09 mmol/L (3.70-5.30); pH, Arterial 7.38 (7.35-7.45)
[2020-02-11 23:20] LABS: ALV-art Gradient 313.475 (0-20); Puncture Site LRA
[2020-02-12] MEDS ORDERED: Sodium Bicarb 50 MEQ/50 ML Abboject 8.4% SYRINGE ONE ×3 (01:53→02:00)
[2020-02-12] MEDS ORDERED: Calcium Gluconate 4.6 MEQ in Sodium Chloride 0.9% 100 ML IVPB SCH (02:00)
[2020-02-12] MEDS ORDERED: Calcium Chloride 1 GM/10 ML Abboject SYRINGE ONE (02:00)
[2020-02-12] MEDS ORDERED: EPINEPHrine 1 MG/10 ML Abboject SYRINGE ONE (02:00)
--- NOTE | 2020-02-12 02:14 | PDOC.EVN ---
Event Note - Event Note Event Note: Code [facility] was called Inspite of CPR and ACLS , NO ROSC. Patient pronounced at 2am on 02/12/20. For details please see CPR record. Dr Lorenzo to dictate discharge summary.
[2020-02-12] MEDS ORDERED: Insulin Glargine 5 UNITS in Pre-Filled Syringe 1 EACH SC SCH (09:00)
--- NOTE | 2020-02-12 14:37 | DIS ---
DATE OF ADMISSION: 01/29/2020 DATE OF DISCHARGE: 02/12/2020 DISCHARGE DIAGNOSES: 1. Status post cardiac arrest with ROSC, multifactorial. 2. Acute respiratory failure with hypoxia. 3. Acute on chronic systolic heart failure. 4. COVID pneumonia. 5. End-stage renal disease, on hemodialysis. 6. Severe ischemic cardiomyopathy with EF of 15%. 7. Grade 3 diastolic dysfunction with severe left atrial enlargement and moderate mitral regurgitation. 8. History of biventricular AICD placement. 9. History of ventricular tachycardia. 10. History of paroxysmal atrial fibrillation and several RFA. 11. Hyperglycemia. HOSPITAL COURSE: This is a 79-year-old male with a history of coronary artery disease, bypass surgery several years ago, presented with generalized weakness, shortness of breath and found to have COVID positive. He was on the telemetry floor when the [facility] called, as unable to get the blood pressure. He does have a biventricular AICD. No evidence of any firing or discharge from the AICD and also telemonitor did not show any indication that he had an arrhythmia. So then he is transferred to the unit. His chest x-ray did show some diffuse infiltrate compatible with the COVID disease. He is on appropriate therapy for his severe ischemic cardiomyopathy with EF of 15% on amiodarone. The current echo did show severe global hypokinesis and [id number] tricuspid regurgitation and aortic wall sclerosis and significantly dilated left atrium. While his COVID is treated with IV steroid and breathing treatments, he required intermittently BiPAP. He also received scheduled dialysis. Over the course of the time, he did not do well pulmonary meyer. On the day of February 11 morning, he became unresponsive and agonal breathing. Blood gas shows severe hypoxemia. Mckinley garcia called around 1:45 a.m. The patient demised on February 11 around 2 am. Primary cause of his demise, COVID pneumonia. Secondary cause, ischemic cardiomyopathy, systolic CHF, and end-stage renal disease, on hemodialysis. Job ID: [id number] [facility]
--- NOTE | 2020-02-13 20:06 | EKG ---
Test Reason : STAT Blood Pressure : / mmHG Vent. Rate : 094 BPM Atrial Rate : 098 BPM P-R Int : 000 ms QRS Dur : 232 ms QT Int : 534 ms P-R-T Axes : 000 127 -66 degrees QTc Int : 667 ms Suspect unspecified pacemaker failure Atrial fibrillation with occasional ventricular-paced complexes and with premature ventricular or sonia rrantly conducted complexes Right bundle branch block Septal infarct , age undetermined Lateral infarct , age undetermined Marked T wave abnormality, consider inferior ischemia Abnormal ECG When compared with ECG of 28-JAN-2020 23:51, Vent. rate has increased BY 24 BPM Confirmed by JOSE CRUZ SWEENEY, DR. Soriano ([id number]) on 02/13/2020 8:05:45 PM Referred By: HEATHER Confirmed By:DR. Christie BILLINGSLEY MD
--- NOTE | 2020-02-18 15:33 | PQF ---
CLINICAL DOCUMENTATION CLARIFICATION FORM: Dear Dr. Christie LATHAM MD Date: 02/18/2020 1862 Please exercise your independent, professional judgment in responding to the clarification form. Clinical indicators are provided on the bottom of this form for your review. Please check appropriate box(es): [ x ] Type 2 HI (T2MI) secondary to: [ x] hypertension [ ] arrhythmia [ ] heart failure [ ] other [ ] Unstable Angina [ ] ACS [ ] Other: [ ] Takotsubo syndrome [ ] Other diagnosis [ ] Unable to determine In addition, please specify: Present on Admission (POA): [ x ] Yes [ ] No [ ] Unable to determine For continuity of documentation, please document condition throughout progress notes and discharge summary. Thank You. To be completed by CDI/Coding staff for physician review: CLINICAL INDICATORS - SIGNS / SYMPTOMS / LABS / RESULTS AND LOCATION IN EMR TROPONIN 01/28 @ 0006 0.073 01/28 @ 0240 0.081 01/28 @ 0603 0.086 01/30 @ 1242 0.261 01/30 @ 1537 0.287 01/30 @ 1812 0.347 RISKS / RESULTS AND LOCATION IN EMR DX COVID PNEUMONIA, ESRD, SEVERE ISCHEMIC CARDIOMYOPATHY, ACUTE ON CHRONIC SYSTOLIC CHF, CARDIAC ARREST // DISCHARGE SUMMARY ( NOA) 02/11 TREATMENTS / RESULTS AND LOCATION IN EMR SUPPLEMENTAL OXYGEN (01/28 - 02/11 ) SERIAL TROPONIN (01/28, 01/30 ) CARDIOLOGY CONSULT (01/30) THANK YOU! CDS Signature: CAROLINA ARGUETA RN Phone #: [phone] Date: 02/18/2020 This is a permanent part of the Medical Record [facility]
== END 2020-02-12 02:00 | disposition expired | DRG 207 ==
LOC: ERS 23:32 → 2SW 01-29 01:49 → OBSVTOIN 01-29 14:27 → CCU 01-31 10:28 → IMCU/EMU 02-09 14:09
PROVIDERS: ADMIT Internal Medicine; ATTEND Internal Medicine
PROC: 8E0ZXY6 Isolation (ICD-10-PCS; 2020-01-29)
PROC: 5A1D70Z Performance of Urinary Filtration, Intermittent, Less than 6 Hours Per Day (ICD-10-PCS; 2020-01-29)
PROC: 5A1955Z Respiratory Ventilation, Greater than 96 Consecutive Hours (ICD-10-PCS; principal; 2020-01-31)
PROC: 0BH17EZ Insertion of Endotracheal Airway into Trachea, Via Natural or Artificial Opening (ICD-10-PCS; 2020-01-31)
PROC: 5A12012 Performance of Cardiac Output, Single, Manual (ICD-10-PCS; 2020-02-12)
DX: U07.1 COVID-19 (principal); J96.01 Acute respiratory failure with hypoxia; N18.6 End stage renal disease; I50.23 Acute on chronic systolic (congestive) heart failure; J12.89 Other viral pneumonia; I13.2 Hypertensive heart and chronic kidney disease with heart failure and with stage 5 chronic kidney disease, or end stage renal disease; N17.9 Acute kidney failure, unspecified; E87.3 Alkalosis; I48.92 Unspecified atrial flutter; Z51.5 Encounter for palliative care; I25.10 Atherosclerotic heart disease of native coronary artery without angina pectoris; E87.5 Hyperkalemia; E78.5 Hyperlipidemia, unspecified; E11.22 Type 2 diabetes mellitus with diabetic chronic kidney disease; R74.0 Nonspecific elevation of levels of transaminase and lactic acid dehydrogenase [LDH]; I25.5 Ischemic cardiomyopathy; G47.33 Obstructive sleep apnea (adult) (pediatric); F17.210 Nicotine dependence, cigarettes, uncomplicated; I48.0 Paroxysmal atrial fibrillation; D63.1 Anemia in chronic kidney disease; E11.65 Type 2 diabetes mellitus with hyperglycemia; I34.0 Nonrheumatic mitral (valve) insufficiency; E78.00 Pure hypercholesterolemia, unspecified; I46.8 Cardiac arrest due to other underlying condition; Z79.82 Long term (current) use of aspirin; Z79.899 Other long term (current) drug therapy; Z99.2 Dependence on renal dialysis; Z95.810 Presence of automatic (implantable) cardiac defibrillator; Z95.1 Presence of aortocoronary bypass graft; Z99.89 Dependence on other enabling machines and devices; Z88.1 Allergy status to other antibiotic agents
CPT/HCPCS: 36415; 36416; 71045; 80048; 80053; 80074; 82553; 82728; 82805; 83605; 83735; 83880; 84100; 84484; 85025; 85379; 86140; 87340; 87635; 87804; 90935; 93005; 93010; 93306; 94002; 94003; 94660; 96374; 96375; 97139; 99284; C9113; G0257; G0378; J0171; J0456; J0692; J1100; J1644; J1720; J1815; J1940; J2060; J2270; J2704; J2920; J3490; J7050; S0028; U0002; U0003